=== PATIENT | female | born 2000 | race Caucasian/White ===

== ENCOUNTER 2019-09-27 16:46 | Emergency (ER) | payer OTHER, SELFPAY ==
[2019-09-27 16:46] VITALS: BP 135/71; PULSE 68; RESP 16; TEMP 36.8; O2SAT 98; BMI 29.3
--- NOTE | 2019-09-27 17:00 | US_ITS ---
STUDY: ABDOMINAL ULTRASOUND - RIGHT UPPER QUADRANT REASON FOR VISIT: Female, 18 years old abdominal pain, nausea TECHNIQUE: Ultrasound evaluation of the right upper quadrant was performed with real-time and static larsen-scale imaging. TECHNICAL QUALITY: Adequate. COMPARISON: None. FINDINGS: Liver: The liver measures 17.3 cm. There is normal echogenicity of the liver. The bile ducts are within normal limits. There is hepatic color flow. The direction of portal flow is hepatopetal. There is no demonstrated mass lesion. Gallbladder: Normal distended gallbladder. The gallbladder wall measures 3 mm. There is a negative sonographic Gan's sign. There is no pericholecystic fluid. There are no gallstones. Common Bile Duct (C.B.D.): The common bile duct measures 4 mm. Pancreas: Normal size of the head, body and tail of the pancreas. There is normal echogenicity of the pancreas. There is no demonstrated pancreatic mass or cyst. Right Kidney: Normal size of the right kidney. The right kidney measures 10.0 x 4.5 x 4.1 cm. Normal renal cortex. The right cortex measures 1.4 cm. There is no demonstrated renal mass or cyst. There is no right hydronephrosis. US/Gallbladder IMPRESSION: Normal right upper quadrant ultrasound examination. Electronically Signed: Marcus Baltazar MD at 17:37 EST , Service support ,
--- NOTE | 2019-09-27 17:01 | ED.DCSUM_ITS ---
History of Present Illness Chief Complaint: Abd Pain Informant: Patient Onset: Weeks Narrative: Intermittent right upper quadrant pain radiating to her right flank with past few weeks. Symptoms more persistent since yesterday and today. No nausea or vomiting. Symptoms worse with movement. Denies any injury. No worsening symptoms with food. No fevers. No urinary symptoms. Normal bowel movements. No previous similar symptoms in the past. History of ovarian cyst however no pain in the pelvic region. On oral contraceptives. Currently symptoms have subsided and is tolerable. No history of gastric ulcers or kidney injury. Prior similar symptoms: No Past Medical History - Allergies and Home Meds Allergies/Adverse Reactions: Allergies No Known Allergies Allergy (Verified 09/27/19 16:48) Primary Care Physician: Tono Arciniega DO [Primary Care Provider] - Smoking Status: Never smoker Review of Systems General: Denies: Chills, Fever, Sweats Eyes: Denies: Visual changes - bilaterally, Diplopia ENT: Denies: Rhinorrhea, Sore throat Cardiovascular: Denies: Chest pain, Palpitations Respiratory: Denies: Dyspnea, Cough, Dyspnea on exertion Gastrointestinal: Reports: Abdominal pain. Denies: Nausea, Vomiting, Diarrhea, Melena, Hematochezia Genitourinary: Denies: Dysuria, Hematuria, Frequency Musculoskeletal: Denies: Back pain, Extremity Pain Skin: Denies: Rash, Wounds Neurological: Denies: Headache, Weakness, Numbness Physical Exam Vital Signs/Narrative: Vital Signs Temp Pulse Resp BP Pulse Ox 09/27/19 16:46 98.2 F 68 16 135/71 H 98 Inital Vital Signs reviewed: Yes General: Well nourished, Well developed, No Acute Distress Head: Normocephalic, Atraumatic Eyes: Perrl, EOMI ENT: Moist mucous membranes, No rhinorrhea Neck: Supple, Nontender Cardiovascular: Regular rate, Regular rhythm, No murmurs Respiratory: No distress, CTA bilaterally, Chest nontender Abdomen: Soft, Nondistended, Normal bowel sounds, - - Mild tenderness right upp er quadrant without guarding or rebound. Negative McBurney's. No pelvic pain.. Negative for: Gan's sign Back: Nontender, Normal Inspection. Negative for: CVA tenderness Extremities: Nontender, No edema Skin: Normal color, No rash Neurological: Alert, Oriented x3, Cranial nerves II-XII grossly intact, Normal Strength, Normal Sensation Psychological: Normal affect, Normal Mood Diagnostic/Tx/Re-eval Clinical Impression(s) from Imaging Studies Gallbladder Ultrasound 09/27/19 17:00 IMPRESSION: Normal right upper quadrant ultrasound examination. Electronically Signed: Marcus Baltaazr MD at 17:37 EST , Service support , - Medical Decision Making Patient with nonsurgical abdomen, atypical right upper quadrant pain reproducible. Gallbladder ultrasound obtained with no acute process. Discussed monitoring symptoms continuing Tylenol or NSAIDs as needed. Follow-up with PCP. All questions were answered. ED Disposition - Plan for ED Patient: Disposition: Home or Assisted Living Diagnosis: RUQ abdominal pain Instructions: ABDOMINAL PAIN, Unknown Cause, (Female) Referrals: Tono Arciniega DO [Primary Care Provider] - 5-7 Days Additional Instructions: normal gallbladder ultrasound.
[2019-09-27 18:47] VITALS: BP 137/74; PULSE 65; RESP 17
== END 2019-09-27 18:48 | disposition home or self-care (01) ==
PROVIDERS: Emergency Provider Emergency Medicine; Family Provider Student in an Organized Health Care Education/Training Program; PCP Student in an Organized Health Care Education/Training Program
DX: R10.11 Right upper quadrant pain (principal)
CPT/HCPCS: 76705; 99282

== ENCOUNTER → 2023-05-01 | Outpatient (CLI) | payer BC, MEDICAID, SELFPAY ==
--- NOTE | 2023-05-01 14:03 | US_ITS ---
STUDY: FIRST TRIMESTER OBSTETRICAL ULTRASOUND REASON FOR EXAM: Female, 22 years old right pelvic pain LMP: March 01, 2024. TECHNIQUE: Transvaginal TECHNICAL QUALITY: Adequate. PRIOR ULTRASOUND: None. FINDINGS: There is visualization of a single gestational sac in a normal intrauterine position. The mean sac diameter (MSD) measures 3.07 cm, indicating an estimated gestational age (EGA) of 8 weeks, 2 days. The gestational sac shape is within normal limits. There is a visualized yolk sac. The yolk sac measures 3 mm. The placenta is non-visualized. There is visualization of a live embryo. The crown-rump length (CRL) measures 1.41 cm, indicating an estimated gestational age (EGA) of 7 weeks, 5 days. There is demonstrated cardiac activity with a heart rate of 159 bpm. The estimated gestation age (EGA) by LMP is 8 weeks, 5 days. The estimated date of delivery (MARK) by LMP is December 06, 2023. The estimated gestation age (EGA) by US is 8 weeks, 0 days. The estimated date of delivery (MARK) by US is December 11, 2023. The uterus measures 9 cm x 7.9 cm x 7.4 cm. There is no demonstrated uterine fibroid. The cervix is closed. The right ovary measures 3.3 cm x 2.9 cm x 2 cm. There is no right ovarian cyst. There is no visualized right adnexal mass or complex lesion. The left ovary measures 3 cm x 2.1 cm x 1.5 cm. There is no left ovarian cyst. There is no visualized left adnexal mass or complex lesion. There is no fluid in the cul de sac. US/Transvaginal w/Preg US IMPRESSION: Single live intrauterine gestation with mean gestational age of 8 weeks. Electronically Signed: Elver Li MD at 15:05 EDT ,
== END | disposition home or self-care (01) ==
PROVIDERS: PCP Student in an Organized Health Care Education/Training Program; Referring Provider Registered Nurse; Visit Provider Registered Nurse
DX: O26.899 Other specified pregnancy related conditions, unspecified trimester (principal); R10.2 Pelvic and perineal pain; Z3A.00 Weeks of gestation of pregnancy not specified
CPT/HCPCS: 36415; 76817; 84702; 86850; 86900; 86901

== ENCOUNTER → 2023-05-15 | Outpatient (CLI) | payer BC, MEDICAID, SELFPAY ==
[2023-05-18 20:07] LABS: Chlamydia By Nucleic Acid AMP Negative (Negative); Gonococcus By Nucleic Acid AMP Negative (Negative)
== END | disposition home or self-care (01) ==
PROVIDERS: PCP Student in an Organized Health Care Education/Training Program; Referring Provider Advanced Practice Midwife; Visit Provider Advanced Practice Midwife
DX: O09.90 Supervision of high risk pregnancy, unspecified, unspecified trimester (principal); Z3A.00 Weeks of gestation of pregnancy not specified
CPT/HCPCS: 87086; 87491; 87591

== ENCOUNTER → 2023-06-08 | Outpatient (CLI) | payer BC, MEDICAID, SELFPAY ==
[2023-06-08 15:33] LABS: Absolute Lymphocyte Count 2.04 X10^3/uL (0.83-4.51); Basophil# 0.02 X10^3/uL; Basophil% 0.2 % (0-1); Eosinophil# 0.07 X10^3/uL; Eosinophils% 0.7 % (0-5); Hematocrit 37.1 % (37-47); Hemoglobin 12.7 g/dL (12.0-15.0); Lymphocyte # 2.04 X10^3/ul (0.83-4.51); Lymphocyte % 20.6 % (19-41); Mean Corp Hgb Conc 34.2 g/dL (32-36); Mean Corpuscular Hgb 27.4 pg (27.0-32.0); Mean Platelet Vol. 8.7 fl (6.2-12.0); Monocyte# 0.74 X10^3/uL; Monocyte% 7.5 % (0-10); NRBC Flagged by Analyzer 0 % (0-5); Neutrophil # 7.01 X10^3/uL (2.7-7.7); Neutrophil % 70.6 % (47-70); Platelet Count 269 K/mm3 (150-450); RBC Distribution Width CV 15.7 % (11.6-14.6); RBC Distribution Width SD 45.2 fl (35.1-43.9); Red Blood Count 4.64 M/mm3 (4.2-5.4); White Blood Count 9.9 K/mm3 (4.4-11.0)
[2023-06-08 16:10] LABS: NATERA MAILED SPECIMEN
[2023-06-08 16:55] LABS: HIV - WCH Non-Reactive (Nonreactive); Hepatitis B Surface Antigen Non-Reactive (Nonreactive); Hepatitis C Antibody Non-Reactive (Nonreactive); Rubella IgG Reactive (Nonreactive); Syphilis Antibodies Non-reactive
== END | disposition home or self-care (01) ==
PROVIDERS: PCP Student in an Organized Health Care Education/Training Program; Referring Provider Advanced Practice Midwife; Visit Provider Advanced Practice Midwife
DX: Z34.82 Encounter for supervision of other normal pregnancy, second trimester (principal); Z3A.00 Weeks of gestation of pregnancy not specified
CPT/HCPCS: 36415; 85025; 86703; 86762; 86780; 86803; 86850; 86900; 86901; 87340

== ENCOUNTER → 2023-07-07 | Outpatient (CLI) | payer BC, MEDICAID, SELFPAY | END | disposition home or self-care (01) | PROVIDERS: PCP Student in an Organized Health Care Education/Training Program; Referring Provider Nurse Practitioner Women's Health; Visit Provider Nurse Practitioner Women's Health | DX: Z34.90 Encounter for supervision of normal pregnancy, unspecified, unspecified trimester (principal) | CPT/HCPCS: 36415 ==

== ENCOUNTER 2023-07-21 22:08 | Emergency (ER) | payer BC, MEDICAID, SELFPAY ==
[2023-07-21 22:09] VITALS: BP 126/68; PULSE 78; RESP 15; TEMP 36.3; O2SAT 100; BMI 27.4
--- NOTE | 2023-07-21 23:21 | EX.ED.DYSGE1 ---
HPI History of Present Illness Chief Complaint: Other, Pain/Inj Informant: patient and spouse/S.O. Narrative Narrative: Presents with intermittent left anterior lateral chest pain. Patient states that she has had an area of just sharp pain that last for about 1 second in the left anterior lateral rib cage. It is intermittent. It will happen several times an hour. Motion or twisting does sometimes bother it but not all the time. Breathing does not bother it. Eating does not bother it. No rash. She has never had chickenpox. She had the vaccines. She states she feels fine in between the episodes. She has never been short of breath. Not syncopal or presyncopal. No leg pain or swelling. No recent travel surgery immobilization personal or family history of DVT or PE. Not having the symptoms now. Does work as an [employer] and does a lot of lifting and bending. Patient is currently about 19 weeks . She is having no complaints related to this. No abdominal or pelvic pain. No urinary ojeda problems other than slight frequency which has been progressive. No hematuria dysuria. PFSH PFSH Home Medications ondansetron 4 mg disintegrating tablet 4 mg PO Q8H #30 tabs 05/15/23 [Rx Last Taken Unknown] sertraline 25 mg tablet (Zoloft) 25 mg PO DAILY #60 tabs 05/15/23 [Rx Last Taken Unknown] vitamin-ferrous fumarate 40 mg iron-folic acid 1 mg tablet 1 tab PO DAILY 07/21/23 [History Last Taken Unknown] Allergy/AdvReac Type Severity Reaction Status Date / Time No Known Allergies Allergy Verified 07/21/23 22:13 Family History Mother Depression Sister Depression Surgical History [place] teeth extracted Social History adopted: No household members: significant other housing: house number of children: 0 current occupational status: employed current occupation: [employer] pets and animals: Yes (not managing litter box) pets and animals: cat(s) and dog(s) history of recent travel: Yes out of state: Yes sexually active: Yes Smoking Status: Never smoker second hand exposure: No alcohol intake: never substance use type: does not use caffeine: No seatbelt use: always do you feel safe at home: Yes additional social history: BOYFRIEND LINDA ALACLA ROS ROS ED ROS Narrative A complete review of systems was performed and is negative except as documented in the history of present illness. Some specific details below. Constitutional: No recent fevers or chills. He overall feels quite well. EYE: No discharge, visual complaints, or pain. ENT: No difficulty swallowing. No swelling. No pain. No reflux symptoms. History of GERD CV: Palpitations. No lightheadedness. No syncope or near syncope. Respiratory: Is not coughing. She is not short of breath even when the pain occurs but it only last for split-second. No hemoptysis. Breathing or taking deep breaths does not exacerbate this. GI: No abdominal pain. No nausea vomiting diarrhea. No blood in stool. : No frequency dysuria or hematuria. Musculoskeletal: No recent trauma. See history of present illness Skin: No rash. Nondiaphoretic now or even with the symptoms. Neuro: No weakness or numbness. Endocrine: No polyuria or polydipsia. EXAM Physical Exam Narrative Exam Narrative: CONSTITUTIONAL: Patient is nontoxic in appearance. The patient looks comfortable. Work of breathing looks normal. HEENT: No notable trauma. Mucous membranes moist. No sinus tenderness. No indication of pain with swallowing. EYES: No conjunctival injection. No proptosis. NECK:No JVD. No stridor. CARDIOVASCULAR: Regular rate. Regular rhythm. No notable murmur. No JVD. Tones are not muffled. Peripheral pulses are normal and equal x4. RESPIRATORY: No respiratory distress. Breathing is unlabored. No wheezes. No rhonchi. No rales. No pain with a deep breath. Breaths do not bring on the pain. There is minimal chest wall tenderness in the area but not significant at all. I see no rashes or skin changes or vesicles. GASTROINTESTINAL: Not distended. Bowel sounds are normal. No tenderness. No guarding. No rebound. No palpable mass. No bruit is heard. GENITOURINARY: No tenderness over the bladder. No CVA tenderness. MUSCULOSKELETAL: Atraumatic. No peripheral edema. No cord. No tenderness along the deep venous system. No asymmetry. No distended veins. NEUROLOGICAL: Patient is alert and appropriate. No focal deficit noted. SKIN: No noted rashes. No diaphoresis. PSYCHIATRIC: Patient is calm. Mood is appropriate. Const Vital Signs: 07/21/23 22:09 07/21/23 23:07 Temperature 97.3 F L Temperature Source Temporal Pulse Rate 78 Respiratory Rate 15 Respiratory Effort Normal Respiratory Pattern Normal Blood Pressure 126/68 H Blood Pressure Mean 87 Pulse Ox 100 Oxygen Delivery Method Room Air MDM MDM MDM Narrative Medical decision making narrative: A long talk with the patient and her significant other. She has a normal heart rate, normal respiratory rate, normal O2 saturations, other than being , she would be PERC negative. Her symptoms are intermittent and only last for maybe 1 second. She has no known risk factor for PE other than being . I explained that I do not think her symptoms justify the risks of a CAT scan. We did discuss the risks and benefits of this study to her and her fetus. We are agreeing at this time that we will watch this. She now states that she has had this before but normally only last a few hours and this has been going on most of the day since somewhere in the afternoon. If the symptoms become constant, she is coughing, hemoptysis, shortness of breath, lightheadedness or other symptoms we may look further. She is comfortable with this plan. Discharge Plan Triage Chief Complaint: Other, Pain/Inj ED Provider: Froylan Perez Dx/Rx/DC Orders Clinical Impression: Intermittent left-sided chest pain, Second trimester Instructions: ED Chest Pain, Uncertain Cause Prescriptions: No Action ondansetron 4 mg tablet,disintegrating 4 mg PO Q8H Qty: 30 1RF sertraline [Zoloft] 25 mg tablet 25 mg PO DAILY Qty: 60 3RF Hold Instructions: not taking (w/o vit A)-Fe fum-FA 40 mg iron-1 mg tablet 1 tab PO DAILY Stand Alone Forms: ED Work / School Excuse Primary Care Provider: Tono Arciniega Referrals: Tono Arciniega, [Primary Care Provider] - 1-2 Days if not improving Disposition Disposition: Home, Self Care
[2023-07-21 23:41] VITALS: BP 120/60; PULSE 76; RESP 16; O2SAT 99
== END 2023-07-21 23:42 | disposition home or self-care (01) ==
PROVIDERS: Emergency Provider Emergency Medicine; PCP Student in an Organized Health Care Education/Training Program; Visit Provider Emergency Medicine
DX: O99.891 Other specified diseases and conditions complicating pregnancy (principal); Z3A.19 19 weeks gestation of pregnancy; R07.89 Other chest pain
CPT/HCPCS: 99282

== ENCOUNTER → 2023-09-07 | Outpatient (CLI) | payer BC, MEDICAID, SELFPAY ==
[2023-09-07 10:50] LABS: Absolute Lymphocyte Count 1.79 X10^3/uL (0.83-4.51); Absolute Neutrophil Count 7.2 X10^3/uL (2.0-7.7); Basophil# 0.03 X10^3/uL; Basophil% 0.3 % (0-1); Eosinophil# 0.11 X10^3/uL; Eosinophils% 1.1 % (0-5); Hematocrit 32.2 % (37-47); Lymphocyte # 1.79 X10^3/ul (0.83-4.51); Lymphocyte % 18.2 % (19-41); Mean Corp Hgb Conc 31.1 g/dL (32-36); Mean Corpuscular Hgb 26.5 pg (27.0-32.0); Mean Corpuscular Volume 85.2 fL (81-99); Mean Platelet Vol. 9.1 fl (6.2-12.0); Monocyte# 0.59 X10^3/uL; NRBC Flagged by Analyzer 0 % (0-5); Neutrophil # 7.19 X10^3/uL (2.7-7.7); Neutrophil % 73.4 % (47-70); Platelet Count 287 K/mm3 (150-450); RBC Distribution Width CV 13.5 % (11.6-14.6); RBC Distribution Width SD 41.2 fl (35.1-43.9); Red Blood Count 3.78 M/mm3 (4.2-5.4); White Blood Count 9.8 K/mm3 (4.4-11.0)
[2023-09-07 11:03] LABS: Glucose Challenge Gest 1H 50g 94 mg/dL (70-140)
[2023-09-07 11:35] LABS: HIV - WCH Non-Reactive (Nonreactive); Syphilis Antibodies Non-reactive
== END | disposition home or self-care (01) ==
LOC: LAB 10:23
PROVIDERS: PCP Student in an Organized Health Care Education/Training Program; Referring Provider Registered Nurse; Visit Provider Registered Nurse
DX: Z34.90 Encounter for supervision of normal pregnancy, unspecified, unspecified trimester (principal); Z3A.00 Weeks of gestation of pregnancy not specified
CPT/HCPCS: 36415; 82950; 85025; 86703; 86780

== ENCOUNTER → 2023-10-06 | Outpatient (CLI) | payer BC, MEDICAID, SELFPAY ==
[2023-10-06 11:29] LABS: Absolute Neutrophil Count 7.2 X10^3/uL (2.0-7.7); Basophil# 0.02 X10^3/uL; Basophil% 0.2 % (0-1); Eosinophil# 0.06 X10^3/uL; Eosinophils% 0.6 % (0-5); Hematocrit 30.8 % (37-47); Hemoglobin 9.7 g/dL (12.0-15.0); Lymphocyte % 18.5 % (19-41); Mean Corp Hgb Conc 31.5 g/dL (32-36); Mean Corpuscular Hgb 25.7 pg (27.0-32.0); Mean Corpuscular Volume 81.5 fL (81-99); Mean Platelet Vol. 8.9 fl (6.2-12.0); Monocyte# 0.58 X10^3/uL; NRBC Flagged by Analyzer 0 % (0-5); Neutrophil # 7.19 X10^3/uL (2.7-7.7); Neutrophil % 73.9 % (47-70); Platelet Count 247 K/mm3 (150-450); RBC Distribution Width CV 13.8 % (11.6-14.6); RBC Distribution Width SD 40.2 fl (35.1-43.9); Red Blood Count 3.78 M/mm3 (4.2-5.4); White Blood Count 9.7 K/mm3 (4.4-11.0)
== END | disposition home or self-care (01) ==
LOC: LAB 10:45
PROVIDERS: PCP Student in an Organized Health Care Education/Training Program; Referring Provider Advanced Practice Midwife; Visit Provider Advanced Practice Midwife
DX: O99.019 Anemia complicating pregnancy, unspecified trimester (principal); Z3A.00 Weeks of gestation of pregnancy not specified
CPT/HCPCS: 36415; 85025

== ENCOUNTER → 2023-10-27 | Outpatient (CLI) | payer BC, MEDICAID, SELFPAY ==
[2023-10-27 13:02] LABS: Absolute Lymphocyte Count 1.84 X10^3/uL (0.83-4.51); Basophil# 0.04 X10^3/uL; Basophil% 0.4 % (0-1); Eosinophil# 0.07 X10^3/uL; Eosinophils% 0.6 % (0-5); Hematocrit 32.3 % (37-47); Hemoglobin 9.9 g/dL (12.0-15.0); Lymphocyte # 1.84 X10^3/ul (0.83-4.51); Lymphocyte % 17.1 % (19-41); Mean Corp Hgb Conc 30.7 g/dL (32-36); Mean Corpuscular Hgb 25.1 pg (27.0-32.0); Mean Platelet Vol. 8.9 fl (6.2-12.0); Monocyte# 0.68 X10^3/uL; Monocyte% 6.3 % (0-10); NRBC Flagged by Analyzer 0 % (0-5); Neutrophil # 8.04 X10^3/uL (2.7-7.7); Neutrophil % 74.6 % (47-70); Platelet Count 247 K/mm3 (150-450); RBC Distribution Width CV 15.9 % (11.6-14.6); RBC Distribution Width SD 44.6 fl (35.1-43.9); Red Blood Count 3.94 M/mm3 (4.2-5.4); White Blood Count 10.8 K/mm3 (4.4-11.0)
[2023-10-27 13:37] LABS: Ferritin 7 ng/mL (8-252); Iron Binding Capacity,Total 498 ug/dL (250-450)
== END | disposition home or self-care (01) ==
PROVIDERS: PCP Student in an Organized Health Care Education/Training Program; Referring Provider Advanced Practice Midwife; Visit Provider Advanced Practice Midwife
DX: O99.019 Anemia complicating pregnancy, unspecified trimester (principal); Z3A.00 Weeks of gestation of pregnancy not specified
CPT/HCPCS: 36415; 82728; 83550; 85025

== ENCOUNTER → 2023-11-13 | Outpatient (CLI) | payer BC, MEDICAID, SELFPAY ==
--- OUTSIDE RECORDS SUMMARY | 2023-11-13 15:22 | XMS RPT_ITS | CCD ---
Author Name Unknown Address [address] [place] [address] Organization [facility] Care Team Providers Care Photoresist Contact Printer Name Role Phone EDGARD CALL Unavailable Unavailable Montse Fernandez Unavailable Unavailable EDGARD CALL Unavailable Unavailable MONTSE FERNANDEZ Unavailable Unavailable Tono Caruso DO Primary Care Provider Tono Caruso Unavailable Panchito Whiteside Unavailable Tono Caruso DO Primary Care Provider [phone] Tono Caruso DO Primary Care Provider [phone] Tono Caruso DO Primary Care Provider TONO CARUSO Primary Care Unavailable JANE ULLOA Attending Unavailable TONO CARUSO Primary Care Unavailable JANE ULLOA Attending Unavailable TONO CARUSO Primary Care Unavailable TONO CARUSO Primary Care Unavailable TONO CARUSO Primary Care Unavailable TONO CARUSO Primary Care Unavailable JANE ULLOA Attending Unavailable TONO CARUSO Primary Care Unavailable FOSTER DICKERSON Attending Unavailab FOSTER Mtz Referring Unavailab MONTSE Gutiérrez Primary Care Unavailable FOSTER DICKERSON Referring Unavailab SHELLY Castillo Attending Unavailable MONTSE VOGEL Primary Care Unavailable MONTSE VOGEL Primary Care Unavailable AARON GOLDSTEIN Attending Unavailable ODALYS JAY Referring Unavailabl e MONTSE VOGEL Primary Care Unavailable AARON GOLDSTEIN Attending Unavailable ODALYS JAY Referring Unavailabl e Medications Current Medications Medication Drug Class(es) Dates Sig (Normalized) Sig (Original) [id number] 200 actuat albuterol 0.09 mg/actuat metered dose inhaler (1 source) beta2-Adrenergic Agonist Start: 05-01-2022 End: 05-30-2022 take 2 puff(s) by inhalation every six hours ProAir HFA 90 mcg/inh inhalation aerosol ; 2 puff(s) inhaled every 6 hours Quantity: 1 Refills: 0 Ordered: 01-May-2022 Panchito Whiteside Start: 01-May-2022 End: 30-May-2022 Generic Substitution Allowed Comments: For inhalation only.It is very important that you take or use this exactly as directed. Do not skip doses or discontinue unless directed by your doctor.Obtain medical advice before taking any non-prescription drugs as some may affect the action of this medication.Shake well before use. Completed/Discontinued Medications Medication Drug Class(es) Dates Sig (Normalized) Sig (Original) azelastine hydrochloride 0.137 mg/actuat metered dose nasal spray (1 source) Histamine-1 Receptor Antagonist Start: 01-22-2020 End: 02-20-2020 azelastine 137 mcg/inh (0.1%) nasal spray ; 2 spray(s) intranasally 2 times a day Quantity: 1 Refills: 0 Ordered: 22-Jan-2020 Kurt Andrade Start: 22-Jan-2020 End: 20-Feb-2020 Status: Other Generic Substitution Allowed Comments: Check with your doctor before becoming .Do not drink alcoholic beverages when taking this medication.For the nose.May cause drowsiness. Alcohol may intensify this effect. Use care when operating dangerous machinery.Obtain medical advice before taking any non-prescription drugs as some may affect the action of this medication.This drug may impair the ability to drive or operate machinery. Use care until you become familiar with its effects. Problems Active Problems Problem Classification Problem Date Documented Date Episodic/Chronic Acute bronchitis (2 sources) Acute bronchitis; Translations: [Acute bronchitis] 05-01-2022 Episodic Adjustment disorders (18 sources) Adjustment disorder with depressed mood; Translations: [Adjustment disorder with depressed mood] Onset: 03-19-2016 03-19-2016 Chronic Anxiety disorders (14 sources) Chronic post-traumatic stress disorder; Translations: [Post-traumatic stress disorder, chronic] Onset: 08-14-2022 08-14-2022 Chronic Cardiac and circulatory congenital anomalies (19 sources) Atrial septal defect; Translations: [Atrial septal defect] Onset: 07-03-2017 07-03-2017 Chronic Developmental disorders (17 sources) Developmental academic disorder; Translations: [Other developmental disorders of scholastic skills] Onset: 01-28-2008 11-29-2008 Chronic Immunizations and screening for infectious disease (3 sources) Patient encounter status; Translations: [Encounter for screening for infections with a predominantly sexual mode of transmission] Episodic Mood disorders (17 sources) Recurrent major depressive episodes, moderate ; Translations: [Major depressive disorder, recurrent, moderate] Onset: 08-14-2022 Chronic Nutritional deficiencies (1 source) Vitamin D deficiency; Translations: [Vitamin D deficiency, unspecified] Chronic Other and delivery including normal (1 source) test positive; Translations: [Encounter for test, result positive] Episodic Other screening for suspected conditions (not mental disorders or infectious disease) (1 source) Cancer cervix screening status; Translations: [Encounter for screening for malignant neoplasm of cervix] Episodic Other upper respiratory infections (3 sources) Acute pansinusitis; Translations: [Other acute sinusitis] 05-01-2022 Episodic Otitis media and related conditions (1 source) Dysfunction of bilateral eustachian tubes; Translations: [Unspecified Eustachian tube disorder, bilateral] 10-13-2023 Episodic Personality disorders (14 sources) Borderline personality disorder; Translations: [Borderline personality disorder] Onset: 08-14-2022 08-14-2022 Chronic Residual codes; unclassified (1 source) FH: Thyroid disorder; Translations: [Family history of other endocrine, nutritional and metabolic diseases] Episodic Unclassified (1 source) Unknown / UNK(Unknown) Onset: 08-26-2017 Unclassified (2 sources) COLD SX 05-01-2022 Past or Other Problems Problem Classification Problem Date Documented Da te Episodic/Chronic Nutritional deficiencies (18 sources) Iron deficiency; Translations: [Iron deficiency] Onset: 04-13-2014 04-13-2014 Episodic Residual codes; unclassified (17 sources) FH: Congenital heart disease; Translations: [Family history of other congenital malformations, deformations and chromosomal abnormalities] Onset: 06-17-2017 06-17-2017 Episodic Unclassified (1 source) Family history of other congenital malformations, deformations and chromosomal abnormalities; Translations: [Family history of other congenital malformations, deformations and chromosomal abnormalities] Onset: 08-26-2017 Episodic Results Test Name Value Interpretation Reference Range Facil ity Vital Signs Date Time Vital Sign Value Performing Clinician Facility 10-13-2023 12:22-0500 Body temperature 97.81 [degF] Javier العلي ADMINISTRATIVE PROGRAM SPECIALIST.MANUFACTURING DIRECTOR Work Phone: [facility] 10-13-2023 12:22-0500 Body weight 81.65 kg Javier العلي ADMINISTRATIVE PROGRAM SPECIALIST.MANUFACTURING DIRECTOR Work Phone: [facility] 10-13-2023 12:22-0500 Diastolic blood pressure 86 mm[Hg] Javier العلي ADMINISTRATIVE PROGRAM SPECIALIST.MANUFACTURING DIRECTOR Work Phone: [facility] 10-13-2023 12:22-0500 Heart rate 86 /min Javier العلي ADMINISTRATIVE PROGRAM SPECIALIST.MANUFACTURING DIRECTOR Work Phone: [facility] 10-13-2023 12:22-0500 Respiratory rate 18 /min Javier العلي ADMINISTRATIVE PROGRAM SPECIALIST.MANUFACTURING DIRECTOR Work Phone: [facility] 10-13-2023 12:22-0500 SaO2% (BldA) [Mass fraction] 99 % Javier العلي ADMINISTRATIVE PROGRAM SPECIALIST.MANUFACTURING DIRECTOR Work Phone: [facility] 10-13-2023 12:22-0500 Systolic blood pressure 138 mm[Hg] Javier العلي ADMINISTRATIVE PROGRAM SPECIALIST.MANUFACTURING DIRECTOR Work Phone: [facility] 06-11-2023 13:43-0400 Body temperature 98.29 [degF] Krislyn Aberegg PA Work Phone: [facility] 06-11-2023 13:43-0400 Body weight 72.58 kg Krislyn Aberegg PA Work Phone: [facility] 06-11-2023 13:43-0400 Diastolic blood pressure 80 mm[Hg] Krislyn Aberegg PA Work Phone: [facility] 08-10-2023 13:43-0400 Heart rate 70 /min Krislyn Aberegg PA Work Phone: [facility] 06-11-2023 13:43-0400 Respiratory rate 18 /min Krislyn Aberegg PA Work Phone: [facility] 06-11-2023 13:43-0400 SaO2% (BldA) [Mass fraction] 100 % Krislyn Aberegg PA Work Phone: [facility] 06-11-2023 13:43-0400 Systolic blood pressure 116 mm[Hg] Krislyn Aberegg PA Work Phone: [facility] 08-04-2022 08:21-0400 Body temperature 97.39 [degF] [facility] ADMINISTRATIVE PROGRAM SPECIALIST.MANUFACTURING DIRECTOR Work Phone: [facility] 08-04-2022 08:21-0400 Body weight 80.29 kg [facility] ADMINISTRATIVE PROGRAM SPECIALIST.MANUFACTURING DIRECTOR Work Phone: [facility] 08-04-2022 08:21-0400 Diastolic blood pressure 68 mm[Hg] Montse Pendlebury ADMINISTRATIVE PROGRAM SPECIALIST.MANUFACTURING DIRECTOR Work Phone: [facility] 08-04-2022 08:21-0400 Heart rate 80 /min Montse Pendlekoffi ADMINISTRATIVE PROGRAM SPECIALIST.MANUFACTURING DIRECTOR Work Phone: [facility] 08-04-2022 08:21-0400 Respiratory rate 16 /min Montse Pendlebury ADMINISTRATIVE PROGRAM SPECIALIST.MANUFACTURING DIRECTOR Work Phone: [facility] 08-04-2022 08:21-0400 SaO2% (BldA) [Mass fraction] 98 % Montse Pendlekoffi ADMINISTRATIVE PROGRAM SPECIALIST.MANUFACTURING DIRECTOR Work Phone: [facility] 08-04-2022 08:21-0400 Systolic blood pressure 118 mm[Hg] Montse Pendlebury ADMINISTRATIVE PROGRAM SPECIALIST.MANUFACTURING DIRECTOR Work Phone: [facility] 05-01-2022 13:58-0400 Body height 165.1 cm Tono Caruso Other Phone: [facility] 05-01-2022 13:58-0400 Body temperature 97.34 [degF] Tono Caruso Other Phone: [facility] 05-01-2022 13:58-0400 Diastolic blood pressure 74 mm[Hg] Tono Caruso Other Phone: [facility] 05-01-2022 13:58-0400 Heart rate 98 /min Tono Caruso Other Phone: [facility] 05-01-2022 13:58-0400 Respiratory rate 16 /min Tono Caruso Other Phone: [facility] 05-01-2022 13:58-0400 SaO2% (BldA) [Mass fraction] 100 % Tono Caruso Other Phone: [facility] 05-01-2022 13:58-0400 Systolic blood pressure 131 mm[Hg] Tono Caruso Other Phone: [facility] 04-30-2022 15:30-0400 Body weight 82.1 kg Krys Nik ADMINISTRATIVE PROGRAM SPECIALIST.MANUFACTURING DIRECTOR Work Phone: [facility] 04-30-2022 15:30-0400 Diastolic blood pressure 72 mm[Hg] Krys Nik ADMINISTRATIVE PROGRAM SPECIALIST.MANUFACTURING DIRECTOR Work Phone: [facility] 04-30-2022 15:30-0400 Heart rate 76 /min Krys Nik ADMINISTRATIVE PROGRAM SPECIALIST.MANUFACTURING DIRECTOR Work Phone: [facility] 04-30-2022 15:30-0400 Respiratory rate 16 /min Krys Nik ADMINISTRATIVE PROGRAM SPECIALIST.MANUFACTURING DIRECTOR Work Phone: [facility] 04-30-2022 15:30-0400 SaO2% (BldA) [Mass fraction] 97 % Krys Nik ADMINISTRATIVE PROGRAM SPECIALIST.MANUFACTURING DIRECTOR Work Phone: [facility] 04-30-2022 15:30-0400 Systolic blood pressure 104 mm[Hg] Krys Nik ADMINISTRATIVE PROGRAM SPECIALIST.MANUFACTURING DIRECTOR Work Phone: [facility] 04-30-2022 14:45-0400 Body height 163.8 cm Marilee Farzana ADMINISTRATIVE PROGRAM SPECIALIST.MANUFACTURING DIRECTOR Work Phone: [facility] 04-30-2022 14:45-0400 Body weight 81.65 kg Marilee Toccoa ADMINISTRATIVE PROGRAM SPECIALIST.MANUFACTURING DIRECTOR Work Phone: [facility] 04-30-2022 14:45-0400 Diastolic blood pressure 68 mm[Hg] Marilee Farzana ADMINISTRATIVE PROGRAM SPECIALIST.MANUFACTURING DIRECTOR Work Phone: [facility] 04-30-2022 14:45-0400 Systolic blood pressure 112 mm[Hg] Marilee Farzana ADMINISTRATIVE PROGRAM SPECIALIST.MANUFACTURING DIRECTOR Work Phone: [facility] Encounters Encounter Date Encounter Type Care Provider Facility Start: 10-20-2023 End: 10-20-[address] [facility] Start: 10-13-2023 End: 10-13-2023 ambulatory TONO CARUSO Facility:[facility] Start: 10-13-2023 End: 10-13-2023 Patient encounter procedure Javier العلي ADMINISTRATIVE PROGRAM SPECIALIST.MANUFACTURING DIRECTOR Work Phone: [facility] Procedures Date Procedure Procedure Detail Performing Clinician Start: 02-23-2023 Follow-up visit Follow Up JANE ULLOA Start: 08-04-2022 STREP A MOLECULAR (POC) Montse Cat ADMINISTRATIVE PROGRAM SPECIALIST.MANUFACTURING DIRECTOR Work Phone: Start: 06-19-2022 Adult depression screening assessment Krys Zaragoza ADMINISTRATIVE PROGRAM SPECIALIST.MANUFACTURING DIRECTOR Work Phone: Start: 04-30-2022 Adult depression screening assessment Marileetemitope DoeToccoa ADMINISTRATIVE PROGRAM SPECIALIST.MANUFACTURING DIRECTOR Work Phone: Start: 12-06-2018 Adult depression screening assessment Marileetemitope DoeFarzana ADMINISTRATIVE PROGRAM SPECIALIST.MANUFACTURING DIRECTOR Work Phone: Plan of Treatment Date Care Activity Detail Author Start: 04-30-2025 PAP TESTING PAP TESTING [facility] Start: 04-30-2025 Screening for malignant neoplasm of cervix Pap Testing [facility] Start: 12-28-2023 PAP TESTING PAP TESTING [facility] Start: 07-03-2023 Covid-19 Vaccine ( season) Covid-19 Vaccine ( season) [facility] Start: 07-03-2023 Influenza vaccination [facility] Start: 06-19-2023 Adult depression screening assessment DEPRESSION SCREENING [facility] Start: 04-30-2023 Adult depression screening assessment DEPRESSION SCREENING [facility] Start: 04-30-2023 CHLAMYDIA SCREENING (-24) CHLAMYDIA SCREENING (24) [facility] Start: 04-30-2023 GC (GONORRHEA) SCREENING (1824) GC (GONORRHEA) SCREENING (18-24) [facility] Start: 07-03-2022 Influenza vaccination [facility] Start: 06-19-2022 End: 08-19-2022 Choriogonadotropin.beta subunit [Units/volume] in Serum or Plasma HCG QUANTITATIVE Lab Routine Positive test Expected: 06/19/2022, Expires: 08/19/2022 [facility] Work Phone: Immunizations Immunization Date Immunization Notes Care Provider Angella gallo 12-01-2018 influenza virus vacc ine, unspecified formulation Javier العلي ADMINISTRATIVE PROGRAM SPECIALIST.MANUFACTURING DIRECTOR Work Phone: [facility] 12-05-2014 meningococcal polysaccharide (groups A, C, Y and W-135) diphtheria toxoid conjugate vaccine (MCV4P) Marilee Farzana ADMINISTRATIVE PROGRAM SPECIALIST.MANUFACTURING DIRECTOR Work Phone: [facility] Work Phone: 01-31-2013 varicella virus vaccine Jameson e Farzana ADMINISTRATIVE PROGRAM SPECIALIST.MANUFACTURING DIRECTOR Work Phone: [facility] Work Phone: 08-29-2011 human papilloma viru s vaccine, quadrivalent Marilee Farzana ADMINISTRATIVE PROGRAM SPECIALIST.MANUFACTURING DIRECTOR Work Phone: [facility] Work Phone: 04-24-2011 human papilloma viru s vaccine, quadrivalent Marilee Farzana ADMINISTRATIVE PROGRAM SPECIALIST.MANUFACTURING DIRECTOR Work Phone: [facility] Work Phone: 12-30-2010 human papilloma viru s vaccine, quadrivalent Marilee Toccoa ADMINISTRATIVE PROGRAM SPECIALIST.MANUFACTURING DIRECTOR Work Phone: [facility] 12-30-2010 Meningococcal, MCV4, unspecified conjugate formulation(groups A, C, Y and W-135) Marilee Toccoa ADMINISTRATIVE PROGRAM SPECIALIST.MANUFACTURING DIRECTOR Work Phone: [facility] 12-30-2010 tetanus toxoid, redu jaida diphtheria toxoid, and acellular pertussis vaccine, adsorbed Marilee Farzana ADMINISTRATIVE PROGRAM SPECIALIST.MANUFACTURING DIRECTOR Work Phone: [facility] 12-30-2010 varicella virus vaccine Jameson e Toccoa ADMINISTRATIVE PROGRAM SPECIALIST.MANUFACTURING DIRECTOR Work Phone: [facility] 06-24-2004 diphtheria, tetanus toxoids and acellular pertussis vaccine Marilee Farzana ADMINISTRATIVE PROGRAM SPECIALIST.[facility] Work Phone: [facility] Work Phone: 12-10-2001 diphtheria, tetanus toxoids and acellular pertussis vaccine Marilee Toccoa ADMINISTRATIVE PROGRAM SPECIALIST.MANUFACTURING DIRECTOR Work Phone: [facility] Work Phone: 06-24-2001 measles, mumps and rubella virus vaccine Marilee Toccoa ADMINISTRATIVE PROGRAM SPECIALIST.MANUFACTURING DIRECTOR Work Phone: [facility] Work Phone: 06-24-2001 poliovirus vaccine, inactivated Marilee Farzana ADMINISTRATIVE PROGRAM SPECIALIST.MANUFACTURING DIRECTOR Work Phone: [facility] Work Phone: 12-25-1999 measles, mumps and rubella virus vaccine Marilee Farzana ADMINISTRATIVE PROGRAM SPECIALIST.MANUFACTURING DIRECTOR Work Phone: [facility] Work Phone: 12-25-1999 poliovirus vaccine, inactivated Marilee Toccoa ADMINISTRATIVE PROGRAM SPECIALIST.MANUFACTURING DIRECTOR Work Phone: [facility] Work Phone: 08-21-1999 hepatitis B vaccine, pediatric or pediatric/adolescent dosage Marilee Farzana ADMINISTRATIVE PROGRAM SPECIALIST.MANUFACTURING DIRECTOR Work Phone: [facility] Work Phone: 06-05-1999 diphtheria, tetanus toxoids and acellular pertussis vaccine Marilee Toccoa ADMINISTRATIVE PROGRAM SPECIALIST.MANUFACTURING DIRECTOR Work Phone: [facility] Work Phone: 06-05-1999 haemophilus influenz ae type b vaccine, conjugate unspecified formulation Marilee Farzana ADMINISTRATIVE PROGRAM SPECIALIST.[facility] Work Phone: [facility] Work Phone: 04-18-1999 diphtheria, tetanus toxoids and acellular pertussis vaccine Marilee Toccoa ADMINISTRATIVE PROGRAM SPECIALIST.[facility] Work Phone: [facility] Work Phone: 04-18-1999 haemophilus influenz ae type b vaccine, conjugate unspecified formulation Marilee Toccoa ADMINISTRATIVE PROGRAM SPECIALIST.[facility] Work Phone: [facility] Work Phone: 04-18-1999 poliovirus vaccine, inactivated Marilee Toccoa ADMINISTRATIVE PROGRAM SPECIALIST.[facility] Work Phone: [facility] Work Phone: 04-18-1999 rotavirus, live, pentavalent vaccine Marilee Farzana ADMINISTRATIVE PROGRAM SPECIALIST.[facility] Work Phone: [facility] Work Phone: 02-07-1999 diphtheria, tetanus toxoids and acellular pertussis vaccine Marilee Toccoa ADMINISTRATIVE PROGRAM SPECIALIST.[facility] Work Phone: [facility] Work Phone: 02-07-1999 haemophilus influenz ae type b vaccine, conjugate unspecified formulation Marilee Toccoa ADMINISTRATIVE PROGRAM SPECIALIST.[facility] Work Phone: [facility] Work Phone: 02-07-1999 poliovirus vaccine, inactivated Marilee Toccoa ADMINISTRATIVE PROGRAM SPECIALIST.[facility] Work Phone: [facility] Work Phone: 02-07-1999 rotavirus, live, pentavalent vaccine Marilee Toccoa ADMINISTRATIVE PROGRAM SPECIALIST.[facility] Work Phone: [facility] Work Phone: 1998 hepatitis B vaccine, pediatric or pediatric/adolescent dosage Marilee Toccoa ADMINISTRATIVE PROGRAM SPECIALIST.[facility] Work Phone: [facility] Work Phone: 1998 hepatitis B vaccine, pediatric or pediatric/adolescent dosage Marilee Yanes APRN.CNP Work Phone: [facility] Work Phone: Payers Date Payer Category Payer Medicaid [employer] [id number] 2023-Present [phone] [address] [place] [address] Medicaid [id number] 2023 Medicaid [id number] 2022 Unknown 2022 Unknown [id number] 2022 Private Health Insurance [facility] [employer] PPO [id number] 2022-Present [phone] [address] [address] [place] [address] PPO [id number] 2022 Private Health Insurance [facility] [employer] PPO [id number] 2022-Present [phone] [address] [address] [place] [address] PPO [id number] 2019 Unknown MMO MMO [employer] [id number] 2019-Present [phone] [address] [place] [address] PPO [id number] 1998 Unknown [id number] 1971 Unknown [id number] 1971 Unknown [id number] 1971 Unknown [id number] Unknown [id number] Social History Date Type Detail Facility Start: 08-26-2017 End: 06-20-2022 Tobacco smoking status NHIS Never smoked tobacco [facility] Start: 12-24-2021 End: 10-13-2023 Alcohol intake Current drinker of alcohol (finding) [facility] Start: 08-26-2017 History SDOH Alcohol Comment social [facility] Start: 12-28-2020 History SDOH Social Connections Phone 5 [facility] Start: 12-28-2020 History SDOH Social Connections Latter-Day 1 [facility] Start: 12-28-2020 History SDOH Social Connections Membership 2 [facility] Start: 12-28-2020 History SDOH Social Connections Living 7 [facility] Start: 12-28-2020 History SDOH Physical Activity MPS 6 [facility] Start: 12-28-2020 Education 13 [facility] Start: 2000 Sex Assigned At Not on file [facility] Start: 04-19-2022 End: 08-04-2022 Exposure to SARS-CoV-2 (event) Not sure [facility] Work Phone: Tobacco smoking consumption unknown [facility] Start: 08-26-2017 End: 06-20-2022 Tobacco use and exposure Smokeless tobacco non-user [facility] Start: 12-28-2020 End: 02-23-2023 History of Social function [facility] Work Phone: Start: 12-28-2020 End: 02-23-2023 Social connection and isolation panel [facility] Work Phone: Do you belong to any clubs or organizations such as adventism groups, unions, fraternal or athletic groups, or school groups? No [facility] Work Phone: Are you now , , , , never or living with a partner? Never [facility] Work Phone: Adult Depression Screening Assessment 3 [facility] Do you feel stress - tense, restless, nervous, or anxious, or unable to sleep at night because your mind is troubled all the time - these days [OSQ] Only a little [facility] Work Phone: Clinical Notes 07-10-2015 to 10-13-2023 Javier العلي APRN.MANUFACTURING DIRECTOR - 10/13/2023 1:58 PM Chrissie Rocha PA - 06/11/2023 1:53 PM EDTPatient InstructionsPatient Alison Ulloa APRN.MANUFACTURING DIRECTOR - 02/23/2023 4:10 PM EDT Note Date & Type Note Facility 10-13-2023 Note HNO ID: [id number] Author: Javier العلي APRN.MANUFACTURING DIRECTOR Service: ? Author Type: Nurse Practitioner Type: Progress Notes Filed: 10/13/2023 2:08 PM Note Text: Subjective HPI HPI Jez Barrera is a 22 year old female who presents today for CC of bilat ear pain. This started intermittent for 2 weeks, was treated with amox for OM. Chronic nasal allergies. 32 weeks . .Patient presents with: Ear Pain: bilateral ears x 2 weeks PAST MEDICAL HISTORY Diagnosis Date Chest pain Dyslexia Iron deficiency anemia PAST SURGICAL HISTORY Procedure Laterality Date 2D ECHO (EXEP) 06/29/2017 EF=55%, Mild [place] Dys, dilated RV and LA and small atrial septal defect. NONE ALLERGIES Patient has no known allergies. MEDICATIONS vit no.124/iron/folic ( VITAMIN ORAL) Take by mouth. sertraline (ZOLOFT) 25 mg tablet Take 1 tablet by mouth every afternoon. (Patient not taking: Reported on 09/01/2023) lamoTRIgine (LAMICTAL) 100 mg tablet Take 1 tablet by mouth once daily. (Patient not taking: Reported on 09/01/2023) FLUoxetine (PROZAC) 20 mg capsule Take 1 capsule by mouth once daily. (Patient not taking: Reported on 09/01/2023) Cholecalciferol, Vitamin D3, 50 mcg (2,000 unit) cap Take 1 capsule by mouth once daily. (Patient not taking: Reported on 06/11/2023) FAMILY HISTORY Problem Relation Age of Onset Alcohol/Drug Mother other (acid reflux) Mother Alcohol/Drug Father Anxiety disorder Sister Depression Sister Anxiety disorder Sister Depression Sister Asthma Sister Heart Paternal Uncle Alzheimer's Disease Maternal Grandmother other (cabg) Maternal Grandfather other (heart defects) Other Social History Tobacco Use Smoking status: Never Smokeless tobacco: Never Vaping Use Vaping Use: Never used Substance Use Topics Alcohol use: Yes Comment: social Drug use: Yes Types: Marijuana Comment: marijuana occasionally Review of Systems Constitutional: Negative for fever. HENT: Positive for congestion and ear pain. Negative for ear discharge, nosebleeds, sinus pain and sore throat. Respiratory: Negative for cough, shortness of breath and wheezing. Musculoskeletal: Negative for neck pain. Skin: Negative for itching and rash. Objective Blood pressure 138/86, pulse 86, temperature 36.6 ?C (97.8 ?F), resp. rate 18, weight 81.6 kg (180 lb), last menstrual period 04/05/2022, SpO2 99%. Physical Exam Constitutional: General: She is not in acute distress. Appearance: She is not toxic-appearing or diaphoretic. HENT: Head: Normocephalic and atraumatic. Right Ear: Hearing, tympanic membrane, ear canal and external ear normal. Left Ear: Hearing, tympanic membrane, ear canal and external ear normal. Pulmonary: Effort: Pulmonary effort is normal. No accessory muscle usage or respiratory distress. Neurological: Mental Status: She is alert and oriented to person, place, and time. ASSESSMENT/PLAN: 1. ETD (Eustachian tube dysfunction), bilateral - ICD9: 381.81, ICD10: H69.93 Try fluticasone and cetirizine Notify photolith operator of medication F/u for continued/worsening s/s. - FLUTICASONE PROPIONATE 50 MCG/ACTUATION NASAL SPRAY,SUSPENSION - CETIRIZINE 10 MG TABLET Javier العلي APRN.[facility] 10-13-2023 History of Presen t illness Narrative Subjective HPI HPI Jez Barrera is a 22 year old female who presents today for CC of bilat ear pain. This started intermittent for 2 weeks, was treated with amox for OM. Chronic nasal allergies. 32 weeks . .Patient presents with: Ear Pain: bilateral ears x 2 weeks PAST MEDICAL HISTORY Diagnosis Date Chest pain Dyslexia Iron deficiency anemia PAST SURGICAL HISTORY Procedure Laterality Date 2D ECHO (EXEP) 06/29/2017 EF=55%, Mild [place] Dys, dilated RV and LA and small atrial septal defect. NONE ALLERGIES Patient has no known allergies. MEDICATIONS vit no.124/iron/folic ( VITAMIN ORAL) Take by mouth. sertraline (ZOLOFT) 25 mg tablet Take 1 tablet by mouth every afternoon. (Patient not taking: Reported on 09/01/2023) lamoTRIgine (LAMICTAL) 100 mg tablet Take 1 tablet by mouth once daily. (Patient not taking: Reported on 09/01/2023) FLUoxetine (PROZAC) 20 mg capsule Take 1 capsule by mouth once daily. (Patient not taking: Reported on 09/01/2023) Cholecalciferol, Vitamin D3, 50 mcg (2,000 unit) cap Take 1 capsule by mouth once daily. (Patient not taking: Reported on 06/11/2023) FAMILY HISTORY Problem Relation Age of Onset Alcohol/Drug Mother other (acid reflux) Mother Alcohol/Drug Father Anxiety disorder Sister Depression Sister Anxiety disorder Sister Depression Sister Asthma Sister Heart Paternal Uncle Alzheimer's Disease Maternal Grandmother other (cabg) Maternal Grandfather other (heart defects) Other Social History Tobacco Use Smoking status: Never Smokeless tobacco: Never Vaping Use Vaping Use: Never used Substance Use Topics Alcohol use: Yes Comment: social Drug use: Yes Types: Marijuana Comment: marijuana occasionally Review of Systems Constitutional: Negative for fever. HENT: Positive for congestion and ear pain. Negative for ear discharge, nosebleeds, sinus pain and sore throat. Respiratory: Negative for cough, shortness of breath and wheezing. Musculoskeletal: Negative for neck pain. Skin: Negative for itching and rash. Objective Blood pressure 138/86, pulse 86, temperature 36.6 C (97.8 F), resp. rate 18, weight 81.6 kg (180 lb), last menstrual period 04/05/2022, SpO2 99%. Physical Exam Constitutional: General: She is not in acute distress. Appearance: She is not toxic-appearing or diaphoretic. HENT: Head: Normocephalic and atraumatic. Right Ear: Hearing, tympanic membrane, ear canal and external ear normal. Left Ear: Hearing, tympanic membrane, ear canal and external ear normal. Pulmonary: Effort: Pulmonary effort is normal. No accessory muscle usage or respiratory distress. Neurological: Mental Status: She is alert and oriented to person, place, and time. ASSESSMENT/PLAN: 1. ETD (Eustachian tube dysfunction), bilateral - ICD9: 381.81, ICD10: H69.93 Try fluticasone and cetirizine Notify photolith operator of medication F/u for continued/worsening s/s. - FLUTICASONE PROPIONATE 50 MCG/ACTUATION NASAL SPRAY,SUSPENSION - CETIRIZINE 10 MG TABLET Javier العلي APRN.MANUFACTURING DIRECTOR documented in this encounter [facility] 09-01-2023 Note HNO ID: [id number] Author: Daisy Chavez APRN.MANUFACTURING DIRECTOR Service: ? Author Type: Nurse Practitioner Type: Progress Notes Filed: 09/01/2023 10:57 AM Note Text: Subjective Ear Pain Pertinent negatives include no chills, congestion, coughing, fever or sore throat. Jez Barrera is a 22 year old female who presents with left ear feeling achey and itchy for the past week. She had COVID 2 weeks ago. She is currently 26 weeks . She does not have a fever. Review of Systems Constitutional: Negative for chills and fever. HENT: Positive for ear pain. Negative for congestion, ear discharge, hearing loss and sore throat. Respiratory: Negative for cough. Cardiovascular: Negative. BP 122/82 Pulse 120 Temp 36.4 ?C (97.5 ?F) Resp 18 Wt 80.7 kg (178 lb) LMP 04/05/2022 (Exact Date) SpO2 97% BMI 30.08 kg/m? PAST MEDICAL HISTORY Diagnosis Date Chest pain Dyslexia Iron deficiency anemia PAST SURGICAL HISTORY Procedure Laterality Date 2D ECHO (EXEP) 06/29/2017 EF=55%, Mild [place] Dys, dilated RV and LA and small atrial septal defect. NONE ALLERGIES Patient has no known allergies. MEDICATIONS vit no.124/iron/folic ( VITAMIN ORAL) Take by mouth. amoxicillin (AMOXIL) 875 mg tablet Take 1 tablet by mouth two times a day for 7 days. sertraline (ZOLOFT) 25 mg tablet Take 1 tablet by mouth every afternoon. (Patient not taking: Reported on 09/01/2023) lamoTRIgine (LAMICTAL) 100 mg tablet Take 1 tablet by mouth once daily. (Patient not taking: Reported on 09/01/2023) FLUoxetine (PROZAC) 20 mg capsule Take 1 capsule by mouth once daily. (Patient not taking: Reported on 09/01/2023) Cholecalciferol, Vitamin D3, 50 mcg (2,000 unit) cap Take 1 capsule by mouth once daily. (Patient not taking: Reported on 06/11/2023) FAMILY HISTORY Problem Relation Age of Onset Alcohol/Drug Mother other (acid reflux) Mother Alcohol/Drug Father Anxiety disorder Sister Depression Sister Anxiety disorder Sister Depression Sister Asthma Sister Heart Paternal Uncle Alzheimer's Disease Maternal Grandmother other (cabg) Maternal Grandfather other (heart defects) Other Social History Tobacco Use Smoking status: Never Smokeless tobacco: Never Vaping Use Vaping Use: Never used Substance Use Topics Alcohol use: Yes Comment: social Drug use: Yes Types: Marijuana Comment: marijuana occasionally Objective Physical Exam Vitals and nursing note reviewed. Constitutional: General: She is not in acute distress. Appearance: Normal appearance. She is not ill-appearing. HENT: Right Ear: Tympanic membrane, ear canal and external ear normal. Left Ear: Ear canal and external ear normal. A middle ear effusion is present. Tympanic membrane is injected. Mouth/Throat: Pharynx: Uvula midline. Cardiovascular: Rate and Rhythm: Normal rate and regular rhythm. Heart sounds: Normal heart sounds. Pulmonary: Effort: Pulmonary effort is normal. No respiratory distress. Breath sounds: Normal breath sounds. No wheezing or rales. Musculoskeletal: Cervical back: Neck supple. Lymphadenopathy: Cervical: No cervical adenopathy. Skin: General: Skin is warm and dry. Findings: No erythema or rash. Neurological: Mental Status: She is alert. ASSESSMENT/PLAN: 1. Other acute nonsuppurative otitis media of left ear, recurrence not specified - ICD9: 381.00, ICD10: H65.192 - Will begin treatment with as per antibiotic as written, see orders - Supportive care with plenty of fluids, rest, and analgesia prn. - AMOXICILLIN 875 MG TABLET - Follow-up with your PCP in 3-5 days if symptoms have not improved or sooner if symptoms worsen - Discussed red flags and need for immediate medical evaluation if any occur. - Discussed supportive care treatment with fluids, rest and analgesia. - Discussed expected course of illness Daisy Chavez APRN.[facility] 06-11-2023 Note HNO ID: [id number] Author: Chrissie Gongora PA Service: ? Author Type: Physician Assisted Living Home Director Type: Progress Notes Filed: 06/11/2023 1:56 PM Note Text: This note was created using [employer]. Subjective Jez Barrera is a 22 year old female. HPI 22-year-old female presents for congestion, dizziness, sinus pressure, ear pain. Patient is 13 weeks . She states that she has been having some congestion, sinus pressure and dizziness for the past day. No cough. No fevers. No vomiting or diarrhea. She did a home COVID test that was negative. She has no vaginal bleeding or discharge. No abdominal pain or pelvic pain. No other complaints. PAST MEDICAL HISTORY Diagnosis Date Chest pain Dyslexia Iron deficiency anemia PAST SURGICAL HISTORY Procedure Laterality Date 2D ECHO (EXEP) 06/29/2017 EF=55%, Mild [place] Dys, dilated RV and LA and small atrial septal defect. NONE ALLERGIES Patient has no known allergies. MEDICATIONS sertraline (ZOLOFT) 25 mg tablet Take 1 tablet by mouth every afternoon. lamoTRIgine (LAMICTAL) 100 mg tablet Take 1 tablet by mouth once daily. FLUoxetine (PROZAC) 20 mg capsule Take 1 capsule by mouth once daily. Cholecalciferol, Vitamin D3, 50 mcg (2,000 unit) cap Take 1 capsule by mouth once daily. (Patient not taking: Reported on 06/11/2023) FAMILY HISTORY Problem Relation Age of Onset Alcohol/Drug Mother other (acid reflux) Mother Alcohol/Drug Father Anxiety disorder Sister Depression Sister Anxiety disorder Sister Depression Sister Asthma Sister Heart Paternal Uncle Alzheimer's Disease Maternal Grandmother other (cabg) Maternal Grandfather other (heart defects) Other Social History Tobacco Use Smoking status: Never Smokeless tobacco: Never Vaping Use Vaping Use: Never used Substance Use Topics Alcohol use: Yes Comment: social Drug use: Yes Types: Marijuana Comment: marijuana occasionally Review of Systems Constitutional: Negative for chills and fever. HENT: Positive for congestion, ear pain, rhinorrhea and sinus pressure. Negative for sore throat. Respiratory: Negative for cough and shortness of breath. Cardiovascular: Negative for chest pain. Gastrointestinal: Negative for diarrhea and vomiting. Neurological: Positive for dizziness. Negative for headaches. Objective BP 116/80 Pulse 70 Temp 36.8 ?C (98.3 ?F) (Tympanic) Resp 18 Wt 72.6 kg (160 lb) LMP 04/05/2022 (Exact Date) SpO2 100% BMI 27.04 kg/m? Physical Exam Vitals and nursing note reviewed. Constitutional: General: She is not in acute distress. Appearance: Normal appearance. She is not toxic-appearing. HENT: Right Ear: Tympanic membrane and ear canal normal. Left Ear: Tympanic membrane and ear canal normal. Nose: Nose normal. Mouth/Throat: Mouth: Mucous membranes are moist. Pharynx: No oropharyngeal exudate or posterior oropharyngeal erythema. Eyes: Conjunctiva/sclera: Conjunctivae normal. Cardiovascular: Rate and Rhythm: Normal rate and regular rhythm. Pulmonary: Effort: Pulmonary effort is normal. Breath sounds: Normal breath sounds. Abdominal: General: Abdomen is flat. Palpations: Abdomen is soft. Tenderness: There is no abdominal tenderness. Neurological: General: No focal deficit present. Mental Status: She is alert and oriented to person, place, and time. Assessment and Plan ASSESSMENT/PLAN: 1. URI, acute - ICD9: 465.9, ICD10: J06.9 - Discussed viral etiology and rationale for treatment. - Symptomatic treatment with prn analgesia - Supportive care with fluids and rest -Given a list of safe cold medication. -Advised to continue drinking plenty of fluids. -Declines COVID/flu swab. -Go to ER if you develop worsening dizziness, inability to ambulate, vomiting, inability to keep down fluids. Diagnosis and treatment plan were discussed and questions were answered to the patient's satisfaction. Pt acknowledged understanding of concepts and follow up plan. Specific signs and symptoms that would indicate the need for higher level of care were discussed in detail warranting prompt ER evaluation. MAMADOU [facility] 06-11-2023 History of Presen t illness Narrative This note was created using NoteWriter. Subjective Jez Barrera is a 22 year old female. HPI 22-year-old female presents for congestion, dizziness, sinus pressure, ear pain. Patient is 13 weeks . She states that she has been having some congestion, sinus pressure and dizziness for the past day. No cough. No fevers. No vomiting or diarrhea. She did a home COVID test that was negative. She has no vaginal bleeding or discharge. No abdominal pain or pelvic pain. No other complaints. PAST MEDICAL HISTORY Diagnosis Date Chest pain Dyslexia Iron deficiency anemia PAST SURGICAL HISTORY Procedure Laterality Date 2D ECHO (EXEP) 06/29/2017 EF=55%, Mild [place] Dys, dilated RV and LA and small atrial septal defect. NONE ALLERGIES Patient has no known allergies. MEDICATIONS sertraline (ZOLOFT) 25 mg tablet Take 1 tablet by mouth every afternoon. lamoTRIgine (LAMICTAL) 100 mg tablet Take 1 tablet by mouth once daily. FLUoxetine (PROZAC) 20 mg capsule Take 1 capsule by mouth once daily. Cholecalciferol, Vitamin D3, 50 mcg (2,000 unit) cap Take 1 capsule by mouth once daily. (Patient not taking: Reported on 06/11/2023) FAMILY HISTORY Problem Relation Age of Onset Alcohol/Drug Mother other (acid reflux) Mother Alcohol/Drug Father Anxiety disorder Sister Depression Sister Anxiety disorder Sister Depression Sister Asthma Sister Heart Paternal Uncle Alzheimer's Disease Maternal Grandmother other (cabg) Maternal Grandfather other (heart defects) Other Social History Tobacco Use Smoking status: Never Smokeless tobacco: Never Vaping Use Vaping Use: Never used Substance Use Topics Alcohol use: Yes Comment: social Drug use: Yes Types: Marijuana Comment: marijuana occasionally Review of Systems Constitutional: Negative for chills and fever. HENT: Positive for congestion, ear pain, rhinorrhea and sinus pressure. Negative for sore throat. Respiratory: Negative for cough and shortness of breath. Cardiovascular: Negative for chest pain. Gastrointestinal: Negative for diarrhea and vomiting. Neurological: Positive for dizziness. Negative for headaches. Objective BP 116/80 Pulse 70 Temp 36.8 C (98.3 F) (Tympanic) Resp 18 Wt 72.6 kg (160 lb) LMP 04/05/2022 (Exact Date) SpO2 100% BMI 27.04 kg/m Physical Exam Vitals and nursing note reviewed. Constitutional: General: She is not in acute distress. Appearance: Normal appearance. She is not toxic-appearing. HENT: Right Ear: Tympanic membrane and ear canal normal. Left Ear: Tympanic membrane and ear canal normal. Nose: Nose normal. Mouth/Throat: Mouth: Mucous membranes are moist. Pharynx: No oropharyngeal exudate or posterior oropharyngeal erythema. Eyes: Conjunctiva/sclera: Conjunctivae normal. Cardiovascular: Rate and Rhythm: Normal rate and regular rhythm. Pulmonary: Effort: Pulmonary effort is normal. Breath sounds: Normal breath sounds. Abdominal: General: Abdomen is flat. Palpations: Abdomen is soft. Tenderness: There is no abdominal tenderness. Neurological: General: No focal deficit present. Mental Status: She is alert and oriented to person, place, and time. Assessment and Plan ASSESSMENT/PLAN: 1. URI, acute - ICD9: 465.9, ICD10: J06.9 - Discussed viral etiology and rationale for treatment. - Symptomatic treatment with prn analgesia - Supportive care with fluids and rest -Given a list of safe cold medication. -Advised to continue drinking plenty of fluids. -Declines COVID/flu swab. -Go to ER if you develop worsening dizziness, inability to ambulate, vomiting, inability to keep down fluids. Diagnosis and treatment plan were discussed and questions were answered to the patient's satisfaction. Pt acknowledged understanding of concepts and follow up plan. Specific signs and symptoms that would indicate the need for higher level of care were discussed in detail warranting prompt ER evaluation. MAMADOU Perla documented in this encounter [facility] 06-11-2023 Instructions Chrissie Gongora PA - 06/11/2023 1:50 PM EDT Colds According to the National Institutes of Health, Americans suffer more than 1 billion colds a year. Young children get more colds than adults because of their close contact with other children. The average child gets 7-10 colds per year mainly during the winter. Germs also spread more in colder months because people stay indoors and are in closer quarters with each other. What is a cold? A cold is a contagious respiratory infection that is caused by a virus. More than 200 different viruses can cause colds. What are the symptoms of a cold? Runny nose Sneezing Cough Sore throat Headache Nasal congestion Fever may be present, especially in children These symptoms usually occur two to three days after infection and will usually end in seven to 10 days. How are colds spread? Colds are spread from one person to another through direct contact or by inhaling droplets of fluid that contain a cold virus. Cold viruses must reach the mucous membrane, the moist lining of the nostrils and mouth, in order for a person to become infected. Someone who has a cold probably has particles of a cold virus on them. Many surfaces may also have particles of a cold virus on them. If you touch an infected person or surface and then touch your eyes, nose, or mouth, you are more likely to catch a cold. How are colds treated? There is no cure for a cold, but getting enough rest is the best way to make a quick recovery. Several remedies may shorten a cold s duration and help you feel better. Talk with your doctor before taking any medication or giving medication to your child. Cilr-ont-lehgmhm cold medications may relieve the symptoms of a cold. However, the benefits of these medications are minimal. Some of these medications include the following: Acetaminophen relieves the aches and pains of a cold without upsetting the stomach. Aspirin should not be given to children under the age of 18 because of its link to Rekha's Syndrome, a disorder that mostly affects children 4 to 12 years old and causes brain damage and . Decongestants relieve nasal congestion. Antihistamines are used to stop a runny nose and sneezing. Cough suppressants may diminish a cough in adults, but these medications have not been found to be beneficial for children. Expectorants loosen mucous so that it can be easily expelled. Drinking plenty of fluids will keep the nose and throat moist and will loosen mucous. Stay away from alcohol and caffeine because they have a drying effect. Antibiotics should not be used to treat a cold. Antibiotics are effective against bacteria only. They will not work on colds (which are caused by viruses) and may cause future infections to be worse and last longer. Many people take supplements and herbal remedies, such as zinc, Vitamin C, and echinacea to treat and prevent colds. These remedies have been studied and their effectiveness has not been verified. Be careful not to take more supplements or herbal remedies than advised because they can cause unwelcome effects such as diarrhea. Tell your doctor if you are taking supplements and herbal remedies. How can you keep from getting a cold? Wash your hands--especially before eating and preparing food, after using the bathroom, after wiping your nose, and after coming in contact with someone who has a cold. Avoid touching your eyes and nose to prevent the spread of viruses from your hands. Avoid contact with those who have a cold. Clean frequently used surfaces (such as doorknobs) with a virus-killing disinfectant. Use hand sanitizers when water is not available. Get enough sleep, eat a healthy diet, and exercise. This will strengthen your immune system and enable you to fight off infections easier. When does a cold require a doctor s care? Contact your doctor if you have any of the following: High fever Chest pain Greenish mucous Ear pain An asthma flare-up Symptoms last longer than 10 days or get worse You may also have a bacterial infection, which can be diagnosed and treated by your doctor. Children with colds should be watched closely, and a doctor should be contacted if children have a high fever, are wheezing, are not eating, are sleepier than usual, cry a lot, or have ear or stomach pain. documented in this encounter [facility] 02-23-2023 Note HNO ID: [id number] Author: Jane Ulloa APRN.MANUFACTURING DIRECTOR Service: ? Author Type: Nurse Practitioner Type: Progress Notes Filed: 02/23/2023 10:10 PM Note Text: PSYC FOLLOW UP - PSYCHIATRIC PROGRESS NOTE DIAGNOSIS: Chronic PTSD MDD, recurrent, in partial remission Borderline Personality Disorder GAF: -70-61 Some mild symptoms or some difficulty in social, occupational, or school functioning, but generally functioning pretty well. TREATMENT PLAN: Increase Lamictal to address her mood related symptoms. Continue Prozac at the same dose. Continue individual psychotherapy. Send an update via [employer] regarding the increase in Lamictal. Follow up in July Medication Update: Lamictal 100 mg - take 1 tablet once daily. 2. Continue Prozac at the same dose. The effects and side effects of all the medications were reviewed in detail with the patient. She is in agreement with the treatment plan and aware to reach out with any questions, concerns, or worsening of symptoms prior to the next appointment. She is aware of the rash side effect associated with Lamictal. CC: Follow up regarding mood and anxiety With the patient consent, visit was performed virtually. I have communicated my name and active licensure. The patient's identity and physical location were verified at the time of this visit. Either the patient or their legal inside technical sales representative has been informed of the risks and benefits of -- and alternatives to -- treatment through a remote evaluation and consents to proceed with the evaluation remotely. HPI: Jez Barrera is a 22 year old Female with a history of PTSD, MDD, borderline personality disorder presenting today for follow-up. Date of last visit: 11/17/2022 Plan from last visit: Increase Lamictal to help with her mood disorder. Start Prozac to help with her anxiety concerns. Schedule with a therapist to start EMDR therapy. Follow up in 4 to 6 weeks. Today Jez shares that she moved. Has been having issues with her wifi. She has started therapy and she is giving her best try. They are working on relationship management and activities to control her emotions. She has been getting support for her borderline tendencies. She denies any rashes from the current dose in the last 2 months of Lamictal. Feels that Prozac at this dose is helping with anxiety. Denies any side effects from her medications. Has noticed that she is sleeping more and noticed some feelings of depression. Interested in trying a higher dose of Lamictal. She has been working as a [employer] [employer]. She is enjoying her job and her schedule. Her appetite has been low for a while. She typically eats 2 meals a day. Her appetite has fluctuated in the past and does not think that it is related to medication. Interval Progress: Slightly improved Risks and benefits of the medication, including any black box warnings, were discussed with the patient. Social History: See HPI PATIENT DATA: Generalized Anxiety Disorder Scale (JHONNY-7) JHONNY - 7 SCORES 10/17/2022 11/15/2022 02/23/2023 JHONNY-7 Score 6 8 4 (0-4) minimal anxiety, (5-9) mild anxiety, (10-14) moderate anxiety, (15-21) severe anxiety Patient Health Questionnaire (PHQ-9) PHQ-9 10/17/2022 11/15/2022 02/23/2023 Score 9 6 12 (0-4) minimal depression, (5-9) mild depression, (10-14) moderate depression, (15-19) moderately severe depression, (20-27) severe depression ROS: General: Negative for fever, malaise, unintentional weight loss HEENT: Negative for recent changes in vision or hearing, no nasal drainage Respiratory: Negative for cough, wheezing or SOB Cardiovascular: Negative for chest pain GI: Negative for nausea, vomiting, change in bowel habits MUSCULOSKELETAL: Negative for acute back or joint pain SKIN: Negative for rash NEURO: Negative for headaches, seizures, focal neurological deficits All other systems negative. VITAL SIGNS: BP Temp Pulse Resp SpO2 MENTAL STATUS EXAMINATION: Appearance: Appropriately groomed, appears stated age Behavior: Appropriately engaged Psychomotor: No psychomotor agitation Cognition Level of Consciousness: Awake and alert. No fluctuation in wakefulness. Orientation: Grossly oriented Memory: Intact Attention/Concentration: Good Fund of Knowledge: Able to demonstrate an awareness of current events. Mood: Euthymic Affect: Congruent to mood Speech/Language: Appropriate tone, prosody, nima, phonetics, and syntax Thought Form: Goal-directed. No loosening of associations. Thought Content: No delusions noted or endorsed. Perceptual Disturbances: Did not appear to respond to auditory stimuli. Safety: Suicidal Ideations: No suicidal ideation, intent or plan. Homicidal Ideations: No homicidal ideation, intent or plan. Insight: Appropriate Judgment: Appropriate I spent a total of 28 minutes on the date of the service which included preparing to see the patient, [id number] (more content not included)... [facility] 02-23-2023 Instructions Jane Ulloa APRN.CNP - 02/23/2023 4:25 PM EDT Mich Pearson, It was good to talk with you today. Below is a summary of the plan that we discussed during your appointment for reference. Of course, if you have any questions or concerns do not hesitate to reach out to me via a message or call. Jane Ro APRN.CNP PLAN AND FOLLOW UP: YOU SHOULD SEEK IMMEDIATE MEDICAL ATTENTION AT THE NEAREST EMERGENCY DEPARTMENT OR BY CALLING 911, IF ANY OF THE FOLLOWING OCCURS: - New or worsening thoughts of harming yourself (suicidal thoughts) or others (homicidal thoughts) - Not feeling safe at home or worrying about your ability to remain safe at home If you are having thoughts of harming yourself or others, then you can: - Call the National Suicide Hotline at 8-230-WUPFDHQ ( ) or 1-817-926-TALK (6566) - Text 1GOPE to 320499 Medication Update: Lamictal 100 mg - take 1 tablet once daily. 2. Continue Prozac at the same dose. Next appointment: --Schedule in July or sooner if needed -- You may call the department appointment line at [phone] to schedule your appointment. -- Please call my nurse Dominique at [phone] or send me a message in [employer] with any questions or concerns between appointments. documented in this encounter [facility] 02-23-2023 History of Presen t illness Narrative Images from the original note were not included. PSYC FOLLOW UP - PSYCHIATRIC PROGRESS NOTE DIAGNOSIS: Chronic PTSD MDD, recurrent, in partial remission Borderline Personality Disorder GAF: -70-61 Some mild symptoms or some difficulty in social, occupational, or school functioning, but generally functioning pretty well. TREATMENT PLAN: Increase Lamictal to address her mood related symptoms. Continue Prozac at the same dose. Continue individual psychotherapy. Send an update via [employer] regarding the increase in Lamictal. Follow up in July Medication Update: Lamictal 100 mg - take 1 tablet once daily. 2. Continue Prozac at the same dose. The effects and side effects of all the medications were reviewed in detail with the patient. She is in agreement with the treatment plan and aware to reach out with any questions, concerns, or worsening of symptoms prior to the next appointment. She is aware of the rash side effect associated with Lamictal. CC: Follow up regarding mood and anxiety With the patient consent, visit was performed virtually. I have communicated my name and active licensure. The patient's identity and physical location were verified at the time of this visit. Either the patient or their legal inside technical sales representative has been informed of the risks and benefits of -- and alternatives to -- treatment through a remote evaluation and consents to proceed with the evaluation remotely. HPI: Jez Barrera is a 22 year old Female with a history of PTSD, MDD, borderline personality disorder presenting today for follow-up. Date of last visit: 11/17/2022 Plan from last visit: Increase Lamictal to help with her mood disorder. Start Prozac to help with her anxiety concerns. Schedule with a therapist to start EMDR therapy. Follow up in 4 to 6 weeks. Today Jez shares that she moved. Has been having issues with her wifi. She has started therapy and she is giving her best try. They are working on relationship management and activities to control her emotions. She has been getting support for her borderline tendencies. She denies any rashes from the current dose in the last 2 months of Lamictal. Feels that Prozac at this dose is helping with anxiety. Denies any side effects from her medications. Has noticed that she is sleeping more and noticed some feelings of depression. Interested in trying a higher dose of Lamictal. She has been working as a [employer]. She is enjoying her job and her schedule. Her appetite has been low for a while. She typically eats 2 meals a day. Her appetite has fluctuated in the past and does not think that it is related to medication. Interval Progress: Slightly improved Risks and benefits of the medication, including any black box warnings, were discussed with the patient. Social History: See HPI PATIENT DATA: Generalized Anxiety Disorder Scale (JHONNY-7) JHONNY - 7 SCORES 10/17/2022 11/15/2022 02/23/2023 JHONNY-7 Score 6 8 4 (0-4) minimal anxiety, (5-9) mild anxiety, (10-14) moderate anxiety, (15-21) severe anxiety Patient Health Questionnaire (PHQ-9) PHQ-9 10/17/2022 11/15/2022 02/23/2023 Score 9 6 12 (0-4) minimal depression, (5-9) mild depression, (10-14) moderate depression, (15-19) moderately severe depression, (20-27) severe depression ROS: General: Negative for fever, malaise, unintentional weight loss HEENT: Negative for recent changes in vision or hearing, no nasal drainage Respiratory: Negative for cough, wheezing or SOB Cardiovascular: Negative for chest pain GI: Negative for nausea, vomiting, change in bowel habits MUSCULOSKELETAL: Negative for acute back or joint pain SKIN: Negative for rash NEURO: Negative for headaches, seizures, focal neurological deficits All other systems negative. VITAL SIGNS: BP Temp Pulse Resp SpO2 MENTAL STATUS EXAMINATION: Appearance: Appropriately groomed, appears stated age Behavior: Appropriately engaged Psychomotor: No psychomotor agitation Cognition Level of Consciousness: Awake and alert. No fluctuation in wakefulness. Orientation: Grossly oriented Memory: Intact Attention/Concentration: Good Fund of Knowledge: Able to demonstrate an awareness of current events. Mood: Euthymic Affect: Congruent to mood Speech/Language: Appropriate tone, prosody, nima, phonetics, and syntax Thought Form: Goal-directed. No loosening of associations. Thought Content: No delusions noted or endorsed. Perceptual Disturbances: Did not appear to respond to auditory stimuli. Safety: Suicidal Ideations: No suicidal ideation, intent or plan. Homicidal Ideations: No homicidal ideation, intent or plan. Insight: Appropriate Judgment: Appropriate I spent a total of 28 minutes on the date of the service which included preparing to see the patient, [id number] patient care, completing clinical documentation, and counseling and educating the patient/family/caregiver, ordering medications/labs. Jane Ulloa APRN.CNP February 23, 2023 4:10 PM This note was partially generated using [employer] voice recognition system. Note was reviewed for accuracy. There may be minor misspellings or grammar miscues with [employer] voice recognition. documented in this encounter [facility] 02-06-2023 Miscellaneous Notes Message to call office to schedule FU. Patient should schedule a follow up appointment. Refills will be provided after. documented in this encounter [facility] 02-03-2023 Note HNO ID: [id number] Author: MAMADOU Perla Service: ? Author Type: Physician Assisted Living Home Director Type: Progress Notes Filed: 02/03/2023 11:05 AM Note Text: This note was created using [employer]. Subjective Jez Barrera is a 22 year old female. HPI 22-year-old female presents for sinus congestion, sore throat, achiness, cough. Patient states she has had nasal congestion, sinus pressure for the past 2 weeks. Has gotten worse over the past few days. She has been using Claritin OTC with minimal improvement. She states she has gotten a sore throat and cough for the past 2 weeks as well. No fevers. She does work in a half-way. No vomiting or diarrhea. No chest pain or shortness of breath. No other complaints. PAST MEDICAL HISTORY Diagnosis Date Chest pain Dyslexia Iron deficiency anemia PAST SURGICAL HISTORY Procedure Laterality Date 2D ECHO (EXEP) 06/29/2017 EF=55%, Mild [place] Dys, dilated RV and LA and small atrial septal defect. NONE ALLERGIES Patient has no known allergies. MEDICATIONS lamoTRIgine (LAMICTAL) 25 mg tablet Take 3 tablets by mouth once daily. FLUoxetine (PROZAC) 10 mg capsule Take 1 capsule by mouth once daily for 7 days, THEN 2 capsules once daily. Cholecalciferol, Vitamin D3, 50 mcg (2,000 unit) cap Take 1 capsule by mouth once daily. lactobacillus rhamnosus (CULTURELLE) 15 billion cell capsule Take 1 capsule by mouth once daily. FAMILY HISTORY Problem Relation Age of Onset Alcohol/Drug Mother other (acid reflux) Mother Alcohol/Drug Father Anxiety disorder Sister Depression Sister Anxiety disorder Sister Depression Sister Asthma Sister Heart Paternal Uncle Alzheimer's Disease Maternal Grandmother other (cabg) Maternal Grandfather other (heart defects) Other Social History Tobacco Use Smoking status: Never Smokeless tobacco: Never Vaping Use Vaping Use: Never used Substance Use Topics Alcohol use: Yes Comment: social Drug use: Yes Types: Marijuana Comment: marijuana occasionally Review of Systems Constitutional: Positive for chills. Negative for fever. HENT: Positive for congestion, sinus pressure, sinus pain and sore throat. Negative for ear pain. Respiratory: Positive for cough. Negative for shortness of breath. Cardiovascular: Negative for chest pain. Gastrointestinal: Negative for diarrhea and vomiting. Musculoskeletal: Positive for myalgias. Objective BP 108/80 Pulse 89 Temp 37 ?C (98.6 ?F) Resp 16 Wt 73.9 kg (163 lb) LMP 04/05/2022 (Exact Date) SpO2 95% BMI 27.55 kg/m? Physical Exam Vitals and nursing note reviewed. Constitutional: General: She is not in acute distress. Appearance: Normal appearance. She is not toxic-appearing. HENT: Right Ear: Tympanic membrane and ear canal normal. Left Ear: Tympanic membrane and ear canal normal. Nose: Congestion present. Mouth/Throat: Mouth: Mucous membranes are moist. Pharynx: Uvula midline. Posterior oropharyngeal erythema present. No oropharyngeal exudate. Tonsils: No tonsillar exudate or tonsillar abscesses. 1+ on the right. 1+ on the left. Eyes: Conjunctiva/sclera: Conjunctivae normal. Cardiovascular: Rate and Rhythm: Normal rate and regular rhythm. Pulmonary: Effort: Pulmonary effort is normal. Breath sounds: Normal breath sounds. Neurological: Mental Status: She is alert. Assessment and Plan ASSESSMENT/PLAN: 1. Bacterial sinusitis - ICD9: 473.9, 041.9, ICD10: J32.9, B96.89 (primary diagnosis) - sinus symptoms x 2 wks - Will begin treatment with Augmentin 875 mg PO BID for 5 days - Supportive care with plenty of fluids, rest, and analgesia prn. 2. Sore throat - ICD9: 462, ICD10: J02.9 - suspect viral - Alere Strep Test negative, no culture pending - Discussed supportive care treatment with fluids, rest and analgesia. - STREP A MOLECULAR (POC) 3. URI, acute - ICD9: 465.9, ICD10: J06.9 - Discussed viral etiology and rationale for treatment. - Symptomatic treatment with prn analgesia - Supportive care with fluids and rest - COVID WITH FLUA+B, ROUTINE - out of window Tamiflu Diagnosis and treatment plan were discussed and questions were answered to the patient's satisfaction. Pt acknowledged understanding of concepts and follow up plan. Specific signs and symptoms that would indicate the need for higher level of care were discussed in detail warranting prompt ER evaluation. MAMADOU Perla [facility] 11-17-2022 Note HNO ID: [id number] Author: Jane Ulloa APRN.MANUFACTURING DIRECTOR Service: ? Author Type: Nurse Practitioner Type: Progress Notes Filed: 11/23/2022 3:17 PM Note Text: PSYC FOLLOW UP - PSYCHIATRIC PROGRESS NOTE DIAGNOSIS: Chronic PTSD MDD, recurrent, moderate Borderline personality disorder GAF: -60-51 Moderate symptoms or moderate difficulty in social, occupational or school functioning. TREATMENT PLAN: Increase Lamictal to help with her mood disorder. Start Prozac to help with her anxiety concerns. Schedule with a therapist to start EMDR therapy. Follow up in 4 to 6 weeks. Medication Update: Lamictal 25 mg - take 3 tablets once daily. Prozac 10 mg - take 1 capsule once daily for 7 days, then take 2 capsules once daily after that. The effects and side effects of all the medications were reviewed in detail with the patient. She is aware of the rash side effect associated with Lamictal. Patient is in agreement with the treatment plan and aware to reach out with any questions, concerns, or worsening of symptoms prior to the next appointment. CC: Follow up regarding mood and anxiety With the patient consent, visit was performed virtually. HPI: Jez Barrera is a 22 year old Female with a history of Chronic PTSD, MDD, and borderline personality disorder presenting today for follow-up. Date of last visit: 10/17/2022 Plan from last visit: Increase Lamictal to help address her mood related symptoms. Switch Celexa to Zoloft to help manage the sexual side effects and the withdrawal the patient was experiencing. Continue to work on decreasing marijuana use. Encouraged to spend more time on her DBT workbook now that her classes are over. Start individual psychotherapy and EMDR therapy. Has an intake in November. Follow up in 4 weeks. Today Jez shares that she had a rash and stopped Lamictal. [place] worse being off the Lamictal. She was more irritable without it. The rash resolved when the dose of Lamictal was decreased. She has been tolerating the 50 mg dose of Lamictal. In agreement to increase the Lamictal to 75 mg and very gradually tapering the dose. She stopped taking the Zoloft as she felt that it was making her anxiety worse. It impacted her libido negatively. Currently, she has noticed she is getting anxious. There are some instances where she feels overwhelmed. She has tried Prozac in the past and tolerated that without any side effects. She is still trying to schedule an appointment for EMDR. She has been working on the DBT workbook. 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 She is excited about the change in her role. Denies concerns with her physical health, sleep, or appetite. Interval Progress: Slightly improved Risks and benefits of the medication, including any black box warnings, were discussed with the patient. Social History: See HPI PATIENT DATA: Generalized Anxiety Disorder Scale (JHONNY-7) JHONNY - 7 SCORES 08/13/2022 10/17/2022 11/15/2022 JHONNY-7 Score 6 6 8 (0-4) minimal anxiety, (5-9) mild anxiety, (10-14) moderate anxiety, (15-21) severe anxiety Patient Health Questionnaire (PHQ-9) PHQ-9 08/13/2022 10/17/2022 11/15/2022 Score 13 9 6 (0-4) minimal depression, (5-9) mild depression, (10-14) moderate depression, (15-19) moderately severe depression, (20-27) severe depression ROS: General: Negative for fever, malaise, unintentional weight loss HEENT: Negative for recent changes in vision or hearing, no nasal drainage Respiratory: Negative for cough, wheezing or SOB Cardiovascular: Negative for chest pain GI: Negative for nausea, vomiting, change in bowel habits MUSCULOSKELETAL: Negative for acute back or joint pain SKIN: Negative for rash NEURO: Negative for headaches, seizures, focal neurological deficits All other systems negative. VITAL SIGNS: BP Temp Pulse Resp SpO2 MENTAL STATUS EXAMINATION: Appearance: Appropriately groomed, appears stated age Behavior: Appropriately engaged Psychomotor: No psychomotor agitation Cognition Level of Consciousness: Awake and alert. No fluctuation in wakefulness. Orientation: Grossly oriented Memory: Intact Attention/Concentration: Good Fund of Knowledge: Able to demonstrate an awareness of current events. Mood: Euthymic Affect: Congruent to mood Speech/Language: Appropriate tone, prosody, nima, phonetics, and syntax Thought Form: Goal-directed. No loosening of associations. Thought Content: No delusions noted or endorsed. Perceptual Disturbances: Did not appear to respond to auditory stimuli. Safety: Suicidal Ideations: No suicidal ideation, intent or plan. Homicidal Ideations: No homicidal ideation, intent or plan. Insight: Appropriate Judgment: Appropriate I spent a total of 28 minutes on the date of the service which included preparing to see the patient, [id number] patient care, completing clinical documentation, and counseling and educ (more content not included)... [facility] 11-17-2022 Instructions Jane Ulloa APRN.CNP - 11/17/2022 11:57 AM EST Mich Pearson, It was good to talk with you today. Below is a summary of the plan that we discussed during your appointment for reference. Of course, if you have any questions or concerns do not hesitate to reach out to me via a message or call. Best, Jane Ulloa APRN.CNP PLAN AND FOLLOW UP: YOU SHOULD SEEK IMMEDIATE MEDICAL ATTENTION AT THE NEAREST EMERGENCY DEPARTMENT OR BY CALLING 911, IF ANY OF THE FOLLOWING OCCURS: - New or worsening thoughts of harming yourself (suicidal thoughts) or others (homicidal thoughts) - Not feeling safe at home or worrying about your ability to remain safe at home If you are having thoughts of harming yourself or others, then you can: - Call the National Suicide Hotline at 7-233-UKZWIMB ( ) or 1-403-542-TALK (6815) - Text 4HSHE to 931260 Medication Update: Lamictal 25 mg - take 3 tablets once daily. Prozac 10 mg - take 1 capsule once daily for 7 days, then take 2 capsules once daily after that. Next appointment: --Schedule in 4 to 6 weeks or sooner if needed -- You may call the department appointment line at [phone] to schedule your appointment. -- Please call my nurse Dominique at [phone] or send me a message in [employer] with any questions or concerns between appointments. documented in this encounter [facility] 11-17-2022 History of Presen t illness Narrative Images from the original note were not included. PSYC FOLLOW UP - PSYCHIATRIC PROGRESS NOTE DIAGNOSIS: Chronic PTSD MDD, recurrent, moderate Borderline personality disorder GAF: -60-51 Moderate symptoms or moderate difficulty in social, occupational or school functioning. TREATMENT PLAN: Increase Lamictal to help with her mood disorder. Start Prozac to help with her anxiety concerns. Schedule with a therapist to start EMDR therapy. Follow up in 4 to 6 weeks. Medication Update: Lamictal 25 mg - take 3 tablets once daily. Prozac 10 mg - take 1 capsule once daily for 7 days, then take 2 capsules once daily after that. The effects and side effects of all the medications were reviewed in detail with the patient. She is aware of the rash side effect associated with Lamictal. Patient is in agreement with the treatment plan and aware to reach out with any questions, concerns, or worsening of symptoms prior to the next appointment. CC: Follow up regarding mood and anxiety With the patient consent, visit was performed virtually. HPI: Jez Barrera is a 22 year old Female with a history of Chronic PTSD, MDD, and borderline personality disorder presenting today for follow-up. Date of last visit: 10/17/2022 Plan from last visit: Increase Lamictal to help address her mood related symptoms. Switch Celexa to Zoloft to help manage the sexual side effects and the withdrawal the patient was experiencing. Continue to work on decreasing marijuana use. Encouraged to spend more time on her DBT workbook now that her classes are over. Start individual psychotherapy and EMDR therapy. Has an intake in November. Follow up in 4 weeks. Today Jez shares that she had a rash and stopped Lamictal. [place] worse being off the Lamictal. She was more irritable without it. The rash resolved when the dose of Lamictal was decreased. She has been tolerating the 50 mg dose of Lamictal. In agreement to increase the Lamictal to 75 mg and very gradually tapering the dose. She stopped taking the Zoloft as she felt that it was making her anxiety worse. It impacted her libido negatively. Currently, she has noticed she is getting anxious. There are some instances where she feels overwhelmed. She has tried Prozac in the past and tolerated that without any side effects. She is still trying to schedule an appointment for EMDR. She has been working on the DBT workbook. 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 She is excited about the change in her role. Denies concerns with her physical health, sleep, or appetite. Interval Progress: Slightly improved Risks and benefits of the medication, including any black box warnings, were discussed with the patient. Social History: See HPI PATIENT DATA: Generalized Anxiety Disorder Scale (JHONNY-7) JHONNY - 7 SCORES 08/13/2022 10/17/2022 11/15/2022 JHONNY-7 Score 6 6 8 (0-4) minimal anxiety, (5-9) mild anxiety, (10-14) moderate anxiety, (15-21) severe anxiety Patient Health Questionnaire (PHQ-9) PHQ-9 08/13/2022 10/17/2022 11/15/2022 Score 13 9 6 (0-4) minimal depression, (5-9) mild depression, (10-14) moderate depression, (15-19) moderately severe depression, (20-27) severe depression ROS: General: Negative for fever, malaise, unintentional weight loss HEENT: Negative for recent changes in vision or hearing, no nasal drainage Respiratory: Negative for cough, wheezing or SOB Cardiovascular: Negative for chest pain GI: Negative for nausea, vomiting, change in bowel habits MUSCULOSKELETAL: Negative for acute back or joint pain SKIN: Negative for rash NEURO: Negative for headaches, seizures, focal neurological deficits All other systems negative. VITAL SIGNS: BP Temp Pulse Resp SpO2 MENTAL STATUS EXAMINATION: Appearance: Appropriately groomed, appears stated age Behavior: Appropriately engaged Psychomotor: No psychomotor agitation Cognition Level of Consciousness: Awake and alert. No fluctuation in wakefulness. Orientation: Grossly oriented Memory: Intact Attention/Concentration: Good Fund of Knowledge: Able to demonstrate an awareness of current events. Mood: Euthymic Affect: Congruent to mood Speech/Language: Appropriate tone, prosody, nima, phonetics, and syntax Thought Form: Goal-directed. No loosening of associations. Thought Content: No delusions noted or endorsed. Perceptual Disturbances: Did not appear to respond to auditory stimuli. Safety: Suicidal Ideations: No suicidal ideation, intent or plan. Homicidal Ideations: No homicidal ideation, intent or plan. Insight: Appropriate Judgment: Appropriate I spent a total of 28 minutes on the date of the service which included preparing to see the patient, [id number] patient care, completing clinical documentation, and counseling and educating the patient/family/caregiver, ordering medications/labs. Jane Ulloa APRN.EMILY November 17, 2022 11:19 AM This note was partially generated using Respicardia voice recognition system. Note was reviewed for accuracy. There may be minor misspellings or grammar miscues with [employer] voice recognition. documented in this encounter [facility] 10-17-2022 Note HNO ID: [id number] Author: Jane Ulloa APRN.MANUFACTURING DIRECTOR Service: ? Author Type: Nurse Practitioner Type: Progress Notes Filed: 10/24/2022 4:32 PM Note Text: PSYC FOLLOW UP - PSYCHIATRIC PROGRESS NOTE DIAGNOSIS: MDD, recurrent, moderate PTSD, chronic Borderline Personality Disorder GAF: -60-51 Moderate symptoms or moderate difficulty in social, occupational or school functioning. TREATMENT PLAN: Increase Lamictal to help address her mood related symptoms. Switch Celexa to Zoloft to help manage the sexual side effects and the withdrawal the patient was experiencing. Continue to work on decreasing marijuana use. Encouraged to spend more time on her DBT workbook now that her classes are over. Start individual psychotherapy and EMDR therapy. Has an intake in November. Follow up in 4 weeks. Medication Update: Stop Celexa. Start Zoloft (Sertraline) 50 mg - take 1 tablet once daily. Increase Lamictal to 100 mg - take 1 tablet once daily. The effects and side effects of all the medications were reviewed in detail with the patient. She is aware of the rash side effect associated with Lamictal. Patient is in agreement with the treatment plan and aware to reach out with any questions, concerns, or worsening of symptoms prior to the next appointment. CC: Follow up regarding mood and anxiety. With the patient consent, visit was performed virtually. HPI: Jez Barrera is a 21 year old Female with a history of MDD, PTSD, and Borderline Personality Disorder presenting today for follow-up. Date of last visit: 08/14/2022 Plan from last visit: 1. Start Lamictal to address her mood concerns. 2. Continue Celexa at the same dose but consider in the future switching it to Zoloft due to patient experiencing sexual side effects on Celexa. 3. Counseled patient to abstain from mariajuana use. 4. Encouraged to work on learning DBT skills via workbook as patient is not able to do the DBT based IOP due to her work schedule to help her manage her struggles with borderline tendencies. 5. Encouraged to start therapy and engage in EMDR therapy to address her trauma. Today Jez shares that he has been feeling much better with her mood. I am not feeling numb and living the same day . She is going to be starting with a therapist in [facility]. She has noticed Lamictal helping with her mood. Concerned about sexual side effects and withdrawal from Celexa. Discussed switching to Zoloft instead. She has decreased her marijuana use. She has ordered a DBT workbook but she was busy with school. The class for school is over now and she feels good about the decision to complete the class. 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 It is a promotion with a raise for her at work. She is excited about that. Interval Progress: Improved Risks and benefits of the medication, including any black box warnings, were discussed with the patient. Social History: See HPI PATIENT DATA: Generalized Anxiety Disorder Scale (JHONNY-7) JHONNY - 7 SCORES 08/12/2022 08/13/2022 10/17/2022 JHONNY-7 Score 6 6 6 (0-4) minimal anxiety, (5-9) mild anxiety, (10-14) moderate anxiety, (15-21) severe anxiety Patient Health Questionnaire (PHQ-9) PHQ-9 08/12/2022 08/13/2022 10/17/2022 Score 13 13 9 (0-4) minimal depression, (5-9) mild depression, (10-14) moderate depression, (15-19) moderately severe depression, (20-27) severe depression ROS: General: Negative for fever, malaise, unintentional weight loss HEENT: Negative for recent changes in vision or hearing, no nasal drainage Respiratory: Negative for cough, wheezing or SOB Cardiovascular: Negative for chest pain GI: Negative for nausea, vomiting, change in bowel habits MUSCULOSKELETAL: Negative for acute back or joint pain SKIN: Negative for rash NEURO: Negative for headaches, seizures, focal neurological deficits All other systems negative. VITAL SIGNS: BP Temp Pulse Resp SpO2 MENTAL STATUS EXAMINATION: Appearance: Appropriately groomed, appears stated age Behavior: Appropriately engaged Psychomotor: No psychomotor agitation Cognition Level of Consciousness: Awake and alert. No fluctuation in wakefulness. Orientation: Grossly oriented Memory: Intact Attention/Concentration: Good Fund of Knowledge: Able to demonstrate an awareness of current events. Mood: Euthymic Affect: Congruent to mood Speech/Language: Appropriate tone, prosody, nima, phonetics, and syntax Thought Form: Goal-directed. No loosening of associations. Thought Content: No delusions noted or endorsed. Perceptual Disturbances: Did not appear to respond to auditory stimuli. Safety: Suicidal Ideations: No suicidal ideation, intent or plan. Homicidal Ideations: No homicidal ideation, intent or plan. Insight: Appropriate Judgment: Appropriate I spent a total of 28 minutes on the date of the service which included preparing to see the patient, fac (more content not included)... [facility] 10-17-2022 Instructions Jane Ulloa APRN.CNP - 10/17/2022 10:59 AM EST Mich Pearson, It was good to talk with you today. Below is a summary of the plan that we discussed during your appointment for reference. Of course, if you have any questions or concerns do not hesitate to reach out to me via a message or call. Best, Jane Ulloa APRN.CNP PLAN AND FOLLOW UP: YOU SHOULD SEEK IMMEDIATE MEDICAL ATTENTION AT THE NEAREST EMERGENCY DEPARTMENT OR BY CALLING 911, IF ANY OF THE FOLLOWING OCCURS: - New or worsening thoughts of harming yourself (suicidal thoughts) or others (homicidal thoughts) - Not feeling safe at home or worrying about your ability to remain safe at home If you are having thoughts of harming yourself or others, then you can: - Call the National Suicide Hotline at 3-018-OVFBHCJ ( ) or 0-537-354-TALK (0888) - Text 4HGJQ to 570280 Medication Update: Stop Celexa. Start Zoloft (Sertraline) 50 mg - take 1 tablet once daily. Increase Lamictal to 100 mg - take 1 tablet once daily. Next appointment: --Schedule in 4 weeks or sooner if needed -- You may call the department appointment line at [phone] to schedule your appointment. -- Please call my nurse Dominique at [phone] or send me a message in [employer] with any questions or concerns between appointments. documented in this encounter [facility] 10-17-2022 History of Presen t illness Narrative Images from the original note were not included. PSYC FOLLOW UP - PSYCHIATRIC PROGRESS NOTE DIAGNOSIS: MDD, recurrent, moderate PTSD, chronic Borderline Personality Disorder GAF: -60-51 Moderate symptoms or moderate difficulty in social, occupational or school functioning. TREATMENT PLAN: Increase Lamictal to help address her mood related symptoms. Switch Celexa to Zoloft to help manage the sexual side effects and the withdrawal the patient was experiencing. Continue to work on decreasing marijuana use. Encouraged to spend more time on her DBT workbook now that her classes are over. Start individual psychotherapy and EMDR therapy. Has an intake in November. Follow up in 4 weeks. Medication Update: Stop Celexa. Start Zoloft (Sertraline) 50 mg - take 1 tablet once daily. Increase Lamictal to 100 mg - take 1 tablet once daily. The effects and side effects of all the medications were reviewed in detail with the patient. She is aware of the rash side effect associated with Lamictal. Patient is in agreement with the treatment plan and aware to reach out with any questions, concerns, or worsening of symptoms prior to the next appointment. CC: Follow up regarding mood and anxiety. With the patient consent, visit was performed virtually. HPI: Jez Barrera is a 21 year old Female with a history of MDD, PTSD, and Borderline Personality Disorder presenting today for follow-up. Date of last visit: 08/14/2022 Plan from last visit: 1. Start Lamictal to address her mood concerns. 2. Continue Celexa at the same dose but consider in the future switching it to Zoloft due to patient experiencing sexual side effects on Celexa. 3. Counseled patient to abstain from mariajuana use. 4. Encouraged to work on learning DBT skills via workbook as patient is not able to do the DBT based IOP due to her work schedule to help her manage her struggles with borderline tendencies. 5. Encouraged to start therapy and engage in EMDR therapy to address her trauma. Today Jez shares that he has been feeling much better with her mood. I am not feeling numb and living the same day . She is going to be starting with a therapist in [facility]. She has noticed Lamictal helping with her mood. Concerned about sexual side effects and withdrawal from Celexa. Discussed switching to Zoloft instead. She has decreased her marijuana use. She has ordered a DBT workbook but she was busy with school. The class for school is over now and she feels good about the decision to complete the class. 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 It is a promotion with a raise for her at work. She is excited about that. Interval Progress: Improved Risks and benefits of the medication, including any black box warnings, were discussed with the patient. Social History: See HPI PATIENT DATA: Generalized Anxiety Disorder Scale (JHONNY-7) JHONNY - 7 SCORES 08/12/2022 08/13/2022 10/17/2022 JHONNY-7 Score 6 6 6 (0-4) minimal anxiety, (5-9) mild anxiety, (10-14) moderate anxiety, (15-21) severe anxiety Patient Health Questionnaire (PHQ-9) PHQ-9 08/12/2022 08/13/2022 10/17/2022 Score 13 13 9 (0-4) minimal depression, (5-9) mild depression, (10-14) moderate depression, (15-19) moderately severe depression, (20-27) severe depression ROS: General: Negative for fever, malaise, unintentional weight loss HEENT: Negative for recent changes in vision or hearing, no nasal drainage Respiratory: Negative for cough, wheezing or SOB Cardiovascular: Negative for chest pain GI: Negative for nausea, vomiting, change in bowel habits MUSCULOSKELETAL: Negative for acute back or joint pain SKIN: Negative for rash NEURO: Negative for headaches, seizures, focal neurological deficits All other systems negative. VITAL SIGNS: BP Temp Pulse Resp SpO2 MENTAL STATUS EXAMINATION: Appearance: Appropriately groomed, appears stated age Behavior: Appropriately engaged Psychomotor: No psychomotor agitation Cognition Level of Consciousness: Awake and alert. No fluctuation in wakefulness. Orientation: Grossly oriented Memory: Intact Attention/Concentration: Good Fund of Knowledge: Able to demonstrate an awareness of current events. Mood: Euthymic Affect: Congruent to mood Speech/Language: Appropriate tone, prosody, nima, phonetics, and syntax Thought Form: Goal-directed. No loosening of associations. Thought Content: No delusions noted or endorsed. Perceptual Disturbances: Did not appear to respond to auditory stimuli. Safety: Suicidal Ideations: No suicidal ideation, intent or plan. Homicidal Ideations: No homicidal ideation, intent or plan. Insight: Appropriate Judgment: Appropriate I spent a total of 28 minutes on the date of the service which included preparing to see the patient, [id number] patient care, completing clinical documentation, and counseling and educating the patient/family/caregiver, ordering medications/labs. Jane Ulloa APRN.MANUFACTURING DIRECTOR October 17, 2022 10:40 AM This note was partially generated using Respicardia voice recognition system. Note was reviewed for accuracy. There may be minor misspellings or grammar miscues with Dragon voice recognition. documented in this encounter [facility] 09-29-2022 Miscellaneous Notes Patient phones requesting refills as follows: Requested Prescriptions Pending Prescriptions Disp Refills citalopram hydrobromide (CELEXA) 10 mg tablet 30 tablet 2 Sig: Take 1 tablet by mouth once daily. LUPE-06/20/22 Labs-04/30/22 NOV-none med filled 07/17/22 Please review and advise. Trini Topete LPN documented in this encounter [facility] 09-18-2022 Miscellaneous Notes Patient has been identified by name and date of : Yes Requested Prescriptions Pending Prescriptions Disp Refills lamoTRIgine (LAMICTAL) 25 mg tablet 74 tablet 0 Sig: Take 1 tablet by mouth once daily for 14 days, THEN 2 tablets once daily. RX INSTRUCTIONS: Patient aware RX will be sent to pharmacy. No need to notify patient. Follw up 10/17/2022. Dominique Jean LPN Patient has been identified by name and date of : Yes Last office visit in this department: Visit date not found RX INSTRUCTIONS: Patient aware RX will be sent to pharmacy. No need to notify patient. Patient phones requesting refills as follows: Requested Prescriptions Pending Prescriptions Disp Refills lamoTRIgine (LAMICTAL) 25 mg tablet 74 tablet 0 Sig: Take 1 tablet by mouth once daily for 14 days, THEN 2 tablets once daily. Patient is taking 50mg daily. Stated she missed her appointment yesterday and called to reschedule (next appt is 10/17), does not think she will have enough to last through. Please review and advise. Marlee Elias Pss documented in this encounter [facility] 09-16-2022 History of Presen t illness Narrative Patient did not log in or her virtual visit with the provider today. She did not answer her phone prior to and during and appointment time. documented in this encounter [facility] 08-04-2022 Instructions Montse Cat APRN.CNP - 08/04/2022 8:51 AM EDT [facility] PATIENT INFO PHARYNGITIS OVERVIEW A sore throat (pharyngitis) is a common problem, and usually is caused by a viral or bacterial infection. Sore throat usually resolves on its own without complications in adults, although it is important to know when to seek medical attention. Viruses can cause a sore throat and other upper respiratory infections, such as the common cold. Sore throat caused by a virus is not treated with antibiotics, but instead may be treated with rest, pain medication, and other therapies aimed at relieving symptoms. Strep throat is a particular kind of pharyngitis that is caused by a bacterium known as group A streptococcus (GAS). Strep throat is treated with a course of antibiotics. SORE THROAT SYMPTOMS Viral pharyngitis -- Most people with a sore throat have a virus. The most common viruses are those that cause upper respiratory infections, such as the common cold. Symptoms of a viral infection can include: A runny or congested nose Irritation or redness of the eyes Cough, hoarseness, or soreness in the roof of the mouth Some viruses cause a fever and can make you feel quite ill. Strep throat -- Approximately 10 percent of adults with a sore throat have strep throat. Signs and symptoms of strep throat include the following: Pain in the throat Fever (temperature greater than 100.4 F or 38 C) Enlarged lymph glands in the neck White patches of pus on the side or back of the throat No cough, runny nose, or irritation/redness of the eyes Other infections -- Many other less common but more serious infections can cause a sore throat, including mononucleosis (mono), influenza (the flu), N. gonococcus (gonorrhea), human immunodeficiency virus (HIV), and others. When to seek urgent help -- See your doctor or nurse immediately if you have a sore throat along with any of the following: Difficulty breathing Skin rash Drooling because you cannot swallow Swelling of the neck or tongue Stiff neck or difficulty opening the mouth SORE THROAT DIAGNOSIS Most people with a sore throat get better without treatment. There is no specific treatment for a sore throat caused by usual cold viruses. Is it strep or not? -- A combination of symptoms (fever, enlarged glands in the neck, white patches on your tonsils, and no cough) can help in determining if you have strep. If you have two or more symptoms, a rapid test or throat culture may be done. People with fewer than two symptoms usually do not need testing or treatment for strep throat. Rapid test -- The rapid test determines if there are streptococcus bacteria on a throat swab. The test can be done in a clinician's office and the results are available within a few minutes. The test is accurate in most cases, although a small percentage of tests are falsely negative (the bacteria are present but the test is negative). Throat culture -- A throat culture involves swabbing the throat, sending the swab to a laboratory, and waiting 24 to 48 hours for the results. Throat cultures are slightly more accurate than the rapid test. TREATMENT OF SORE THROAT Sore throat treatment -- Antibiotics do not help throat pain caused by a virus and are not recommended. Sore throat caused by viral infections usually lasts four to five days. During this time, treatments to reduce pain may be helpful. Several therapies can help to relieve throat pain. Pain medication -- You can treat your throat pain with a mild pain reliever such as acetaminophen (Tylenol ) or a non-steroidal anti-inflammatory agent such as ibuprofen or naproxen (Motrin or Aleve ). Oral rinses -- Salt-water gargles are an old stand-by for throat pain. It is not clear that salt water works to relieve pain, but it is unlikely to be harmful. Most recipes suggest 1/4 to 1/2 teaspoon of salt per one cup (8 ounces) of warm water. Sprays -- Sprays containing topical anesthetics (eg, benzocaine, phenol) are available to treat sore throat. However, such sprays are no more effective than sucking on hard candy. Lozenges -- A variety of lozenges (cough drops) are available to treat throat pain or relieve dryness. However, it is not clear that lozenges work any better than other forms of hard candy, which are generally less expensive. Other treatments -- Other treatments that may help with throat pain include sipping warm beverages (eg, honey or lemon tea, chicken soup), cold beverages, or eating cold or frozen desserts (eg, ice cream, popsicles). Alternative therapies -- Health food stores, vitamin outlets, and Internet Web sites offer alternative treatments for relief of sore throat pain. We do not recommend these type of treatments due to the risks of contamination with pesticides/herbicides, inaccurate labeling and dosing information, and a lack of studies showing that these treatments are safe and effective. Strep throat -- Although strep throat typically resolves on its own within two to five days, treatment with antibiotics is recommended for adults whose rapid test or throat culture is positive for strep throat. Penicillin, or an antibiotic related to penicillin, is the treatment of choice for strep throat. It is usually given in pill or liquid form two to four times per day for 10 days. A one time injection of penicillin is also available. People who are allergic to penicillin are given an alternate antibiotic. It is important to finish the entire course of treatment to completely eliminate the infection. If symptoms do not begin to improve or worsen by three days of antibiotic treatment, you should see your doctor or nurse again. Return to work/school -- If you have been diagnosed with strep throat, stay home from work or school until you have completed 24 hours of antibiotics. Within 24 hours of beginning antibiotic treatment, you will feel better and will be less contagious [1]. If you have a sore throat (not diagnosed as strep), you may participate in your usual activities as soon as you feel well. SORE THROAT PREVENTION Hand washing is an essential and highly effective way to prevent the spread of infection. Wet your hands with water and plain soap, and rub them together for 15 to 30 seconds. Pay special attention to the fingernails, between the fingers, and the wrists. Rinse your hands thoroughly, and dry them with a clean towel. Alcohol-based hand rubs are a good alternative for disinfecting hands if a sink is not available. Hand rubs should be spread over the entire surface of hands, fingers, and wrists until dry, and may be used several times. These rubs can be used repeatedly without skin irritation or loss of effectiveness. Hand rubs are available as a liquid or wipe in small, portable sizes that are easy to carry in a pocket or handbag. When a sink is available, visibly soiled hands should be washed with soap and water. Wash your hands after coughing, blowing the nose, or sneezing. While it is not always possible to avoid being near a person who is sick, avoiding touching your eyes, nose, or mouth to prevent the spread of infection. In addition, tissues should be used to cover the mouth when sneezing or coughing. These used tissues should be disposed of promptly. Sneezing/coughing into your sleeve (at the inner elbow) is another way to contain sprays of saliva and secretions and will not contaminate your hand documented in this encounter [facility] 08-04-2022 History of Presen t illness Narrative Subjective HPI Nontoxic female presents urgent care chief complaint sore throat congestion and headache. Duration of symptoms 1 day. Associated symptoms listed above. States boyfriend was sick prior to her symptoms starting similar signs and symptoms. Has not use any OTC medications today. States she did take a negative COVID-19 home test. Denies any significant pain. History of strep throat this feels similar. Denies any fever body aches chills productive cough chest pain shortness of breath pleuritic pain hemoptysis nausea vomiting abdominal pain change in bowel or bladder habits. Denies chance of is not breast-feeding. .Patient presents with: Sore Throat: Sore throat, congestion, headache x 1 day PAST MEDICAL HISTORY Diagnosis Date Chest pain Dyslexia Iron deficiency anemia PAST SURGICAL HISTORY Procedure Laterality Date 2D ECHO (EXEP) 06/29/2017 EF=55%, Mild [place] Dys, dilated RV and LA and small atrial septal defect. NONE ALLERGIES Patient has no known allergies. MEDICATIONS citalopram hydrobromide (CELEXA) 10 mg tablet Take 1 tablet by mouth once daily. Cholecalciferol, Vitamin D3, 50 mcg (2,000 unit) cap Take 1 capsule by mouth once daily. lactobacillus rhamnosus (CULTURELLE) 15 billion cell capsule Take 1 capsule by mouth once daily. FAMILY HISTORY Problem Relation Age of Onset Alcohol/Drug Mother other (acid reflux) Mother Alzheimer's Disease Maternal Grandmother other (cabg) Maternal Grandfather Asthma Sister other (heart defects) Other Heart Paternal Uncle Social History Tobacco Use Smoking status: Never Smokeless tobacco: Never Vaping Use Vaping Use: Never used Substance Use Topics Alcohol use: Yes Comment: social Drug use: Yes Types: Marijuana Comment: marijuana occasionally BP 118/68 Pulse 80 Temp 36.3 C (97.4 F) Resp 16 Wt 80.3 kg (177 lb) LMP 04/05/2022 (Exact Date) SpO2 98% BMI 29.91 kg/m Review of Systems Constitutional: Negative for chills, fever and malaise/fatigue. HENT: Positive for congestion and sore throat. Negative for ear discharge, ear pain and sinus pain. Eyes: Negative for blurred vision, pain, discharge and redness. Respiratory: Negative for cough, hemoptysis, sputum production, shortness of breath, wheezing and stridor. Cardiovascular: Negative for chest pain. Gastrointestinal: Negative for abdominal pain, diarrhea, nausea and vomiting. Musculoskeletal: Negative for myalgias. Skin: Negative for itching and rash. Neurological: Positive for headaches. Negative for dizziness. Objective Physical Exam Constitutional: General: She is not in acute distress. Appearance: She is not diaphoretic. HENT: Head: Normocephalic. Jaw: No trismus, tenderness, swelling or pain on movement. Right Ear: Tympanic membrane, ear canal and external ear normal. Left Ear: Tympanic membrane, ear canal and external ear normal. Nose: Congestion present. Mouth/Throat: Lips: [place]. Mouth: Mucous membranes are moist. Pharynx: Oropharynx is clear. Uvula midline. Posterior oropharyngeal erythema present. No pharyngeal swelling, oropharyngeal exudate or uvula swelling. Tonsils: No tonsillar exudate or tonsillar abscesses. Eyes: Conjunctiva/sclera: Conjunctivae normal. Pupils: Pupils are equal, round, and reactive to light. Cardiovascular: Rate and Rhythm: Normal rate and regular rhythm. Heart sounds: Normal heart sounds. Pulmonary: Effort: Pulmonary effort is normal. No tachypnea, accessory muscle usage or respiratory distress. Breath sounds: Normal breath sounds. No stridor. No wheezing, rhonchi or rales. Abdominal: Palpations: Abdomen is soft. Tenderness: There is no abdominal tenderness. Musculoskeletal: Cervical back: Normal range of motion and neck supple. No rigidity or tenderness. No pain with movement. Normal range of motion. Lymphadenopathy: Cervical: No cervical adenopathy. Skin: General: Skin is warm and dry. Neurological: Mental Status: She is alert and oriented to person, place, and time. ASSESSMENT/PLAN: 1. Pharyngitis, unspecified etiology - ICD9: 462, ICD10: J02.9 - STREP A MOLECULAR (POC) Strep test negative. COVID-19 test offered declined testing at this time. States did take a negative home test. We will treat conservatively at this time. Patient was educated on supportive therapies. Patient will follow up with primary care provider as needed. Patient was instructed to immediately proceed to emergency room for any new, worsening, or symptoms lasting longer than anticipated. The patient's clinical presentation is otherwise unremarkable at this time. Based on exam and clinical finding, the patient is stable for discharge. Plan of care was discussed with patient. Patient verbalizes understanding and agrees to plan of care. This note was generated using Respic[employer]ia software. It may contain errors in wording, punctuation, or spelling. Montse Cat APRN.EMILY documented in this encounter [facility] 07-17-2022 Miscellaneous Notes The following approved medication requests have been transmitted electronically. Requested Prescriptions Signed Prescriptions Disp Refills citalopram hydrobromide (CELEXA) 10 mg tablet 30 tablet 2 Sig: Take 1 tablet by mouth once daily. Adali Martin APRN.CNP Pt asking about medication refill. Rx pended for review. Dora Dailey Ma Please assist patient in scheduling with psychiatry. Krys Zaragoza APRN.CNP documented in this encounter [facility] 06-19-2022 Miscellaneous Notes Please see request for test documented in this encounter [facility] 05-02-2022 Miscellaneous Notes Patient calls and notified of results and providers instructions. Patient verbalizes understanding. Trinh Kearns RN Attempted to call patient to update her with results and recommendations of provider. Patient's VM was full and unable to leave message. Please let Jez know that I received her lab results. Her thyroid looks good, iron is good. Her vitamin D level is low. I'd like her to begin taking a daily vitamin D3 supplement; I've sent this to the pharmacy for her. No other concerns. documented in this encounter [facility] 04-30-2022 Instructions Krys Zaragoza APRN.CNP - 04/30/2022 3:51 PM EDT Get scheduled for counseling as you're planning. Have your labs completed. Schedule your thyroid ultrasound. Celexa. Take once daily. documented in this encounter [facility] 04-30-2022 History of Presen t illness Narrative Chief Complaint Patient presents with: Depression Anxiety HPI Jez Barrera is a 21 year old female who presents here today for Above Complaints. Today: Since a child has dealt with depression & anxiety. Has been in counseling in the past as well as Prozac. Working on getting in to counseling again-had stopped in 2018. Holding things in. No motivation. Overwhelmed. These sx have been going on for at least 2 years, but over the past 6 months things have really escalated. Seems like more depression than anxiety. Difficulty making decisions. Frequently changes her mind. When she makes a decision will be very rash. Doesn't feel like herself anymore. Feels like she wakes up and lives the same day over and over. Either will sleep very well or can't sleep at all. Sometimes will wake up every couple hours. No difficulty falling asleep. Never feels rested, always fatigued. Did not feel like Prozac ever really worked for her. Would like to try a different medication. No SI/HI. Past medical history, appointments, medications, allergies reviewed. Previous Medical History PAST MEDICAL HISTORY Diagnosis Date Chest pain Dyslexia Iron deficiency anemia Previous Surgical History PAST SURGICAL HISTORY Procedure Laterality Date 2D ECHO (EXEP) 06/29/2017 EF=55%, Mild [place] Dys, dilated RV and LA and small atrial septal defect. NONE Family History FAMILY HISTORY Problem Relation Age of Onset Alcohol/Drug Mother other (acid reflux) Mother Alzheimer's Disease Maternal Grandmother other (cabg) Maternal Grandfather Asthma Sister other (heart defects) Other Heart Paternal Uncle Patient Allergies ALLERGIES No Known Allergies Current Medications Current Outpatient Medications on File Prior to Visit Medication Sig lactobacillus rhamnosus (CULTURELLE) 15 billion cell capsule Take 1 capsule by mouth once daily. No current facility-administered medications on file prior to visit. Social History Social History Tobacco Use Smoking status: Never Smoker Smokeless tobacco: Never Used Vaping Use Vaping Use: Never used Substance Use Topics Alcohol use: Yes Comment: social Drug use: Yes Types: Marijuana Comment: marijuana occasionally Review of Symptoms REVIEW OF SYSTEMS See HPI, otherwise negative EXAM: BP 104/72 (BP Site: Left Arm, BP Position: Sitting, BP Cuff Size: Regular Adult) Pulse 76 Resp 16 Wt 82.1 kg (181 lb) LMP 04/05/2022 (Exact Date) SpO2 97% BMI 30.59 kg/m General Appearance: Well appearing, alert, in no acute distress, well-hydrated, well nourished.. Lungs: Lungs clear to auscultation. No wheezing, rhonchi, rales.. Heart: RRR without murmur, gallop, or rubs. No ectopy. Health Maintenance List MENINGOCOCCAL B: Consider based on risk(1 of 2 - Risk Bexsero 2-dose series) Never done HEPATITIS C SCREENING Never done HIV SCREENING Never done DTAP,TDAP,TD(7 - Td or Tdap) due on 12/30/2020 COVID-19 VACCINE(3 - Booster for Moderna series) due on 11/28/2021 GC (GONORRHEA) SCREENING (18-24) due on 03/18/2022 CHLAMYDIA SCREENING (18-24) due on 03/18/2022 INFLUENZA(Season Ended) due on 07/03/2022 DEPRESSION SCREENING due on 04/30/2023 PAP TESTING due on 12/28/2023 HPV VACCINE Completed Data reviewed Previous records, office notes ASSESSMENT/PLAN: 1. Moderate episode of recurrent major depressive disorder (HCC) - ICD9: 296.32, ICD10: F33.1 (primary diagnosis) Begin counseling/therapy Begin Celexa, follow up in 4-6 weeks. Lab work to r/o contributing factors - CITALOPRAM 10 MG TABLET - IRON + TIBC - FERRITIN BLD - TSH BLD - T3 BLD - T4 FREE/FREE THYROX - VITAMIN D 25 HYDROXY - CBC - COMP METABOLIC PANEL 2. Iron deficiency - ICD9: 280.9, ICD10: E61.1 Begin counseling/therapy Begin Celexa, follow up in 4-6 weeks. Lab work to r/o contributing factors - IRON + TIBC - FERRITIN BLD - CBC 3. Screening for thyroid disorder - ICD9: V77.0, ICD10: Z13.29 Begin counseling/therapy Begin Celexa, follow up in 4-6 weeks. Lab work to r/o contributing factors - TSH BLD - T3 BLD - T4 FREE/FREE THYROX - US THYROID/PARATHYROID 4. Encounter for vitamin deficiency screening - ICD9: V77.99, ICD10: Z13.21 Begin counseling/therapy Begin Celexa, follow up in 4-6 weeks. Lab work to r/o contributing factors - VITAMIN D 25 HYDROXY 5. Family history of thyroid disease - ICD9: V18.19, ICD10: Z83.49 Begin counseling/therapy Begin Celexa, follow up in 4-6 weeks. Lab work to r/o contributing factors - TSH BLD - T3 BLD - T4 FREE/FREE THYROX - THYROGLOBULIN AB - THYROID PEROXIDASE ANTIBODY BLOOD - US THYROID/PARATHYROID Krys Zaragoza APRN.CNP Greater than 50% of 35-minute visit spent face to face with patient in counseling and education. documented in this encounter [facility] 04-30-2022 History of Presen t illness Narrative Jez is a 21 year old who presents for an annual gynecologic exam without complaints. Menses: cycles every 25-30 days and 3-4 days of flow. Contraception: none HPV vaccine: Yes Last Pap: 01/04/2021 abnormal, [facility] HPV: 01/08/2021 positive History of abnormal pap: Yes Last mammogram: never Sexually active: Yes Patient concerns for STD exposure: No. Pain with intercourse: No Postcoital bleeding: No OB History T0 L0 SAB0 IAB0 Ectopic0 Multiple0 Live Births0 Title I Assistant History LMP: 09/02/2021, Having periods Age at Menarche: Age at First : Age at Menopause: Title I Assistant History Comments: Sexual Activity: Yes; Male; with boyfriend, using OCPs and condoms Contraception: No contraception data on record PAST MEDICAL HISTORY Diagnosis Date Chest pain Dyslexia Iron deficiency anemia PAST SURGICAL HISTORY Procedure Laterality Date 2D ECHO (EXEP) 06/29/2017 EF=55%, Mild [place] Dys, dilated RV and LA and small atrial septal defect. NONE FAMILY HISTORY Problem Relation Age of Onset Alcohol/Drug Mother other (acid reflux) Mother Alzheimer's Disease Maternal Grandmother other (cabg) Maternal Grandfather Asthma Sister other (heart defects) Other Heart Paternal Uncle SOCIAL HISTORY Social History Tobacco Use Smoking status: Never Smoker Smokeless tobacco: Never Used Vaping Use Vaping Use: Never used Substance Use Topics Alcohol use: Yes Comment: social Drug use: Yes Types: Marijuana Comment: marijuana occasionally REVIEW OF SYSTEMS Abdomen: No abdominal pain, nausea, vomiting, diarrhea, or constipation. No early satiety, indigestion, or increased flatulence. +bloating Bladder: No dysuria, gross hematuria, urinary frequency, urinary urgency, or incontinence. Breast: No breast lumps, nipple d/c, overlying skin changes, redness or skin retraction. Allergies and current medication updated:Yes EXAM: LMP 09/02/2021 GENERAL: pleasant, female in no apparent distress HEENT: Normocephalic, atraumatic, mucus membranes moist and no lesions NECK: Supple, full range of motion, no adenopathy and thyroid normal DERMATOLOGY: Normal, without lesions, non-icteric and non-hirsute BREAST: soft, non-tender, symmetric, no dominant mass, normal nipple-areolar complex, no lymphadenopathy and no nipple discharge CHEST: Normal inspiratory effort ABDOMEN: soft, non-tender and no masses PELVIC: external genitalia normal, normal Bartholin's glands, urethra, [place]'s glands, no vulvar lesions, no cervical lesions, good vaginal support, physiologic discharge present, normal appearing perineal body and perianal region BIMANUAL: uterus normal size, shape and consistency, no adnexal masses, non-tender and no cervical motion tenderness RECTOVAGINAL: deferred. NEURO: alert and oriented x3,exam grossly non-focal EXTREMITIES: normal ASSESSMENT/PLAN: 1) Health maintenance: Pap done with reflex HPV. Mammogram starting age 40. Nutrition, exercise and routine health maintenance exams reviewed. Calcium/Vitamin D supplementation information provided. HPV vaccine: completed series 2) Contraception: none. Contraceptive options reviewed and information provided. 3) STD screening: Accepted STD check for Gonorrhea and Chlamydia. 4) Follow up one year or sooner as needed Marilee Yanes APRN.CNP documented in this encounter [facility] 02-06-2022 Miscellaneous Notes Since she started back on the pill the bleeding should start to decrease over the next few days. If it doesn't decrease I can send in some Aygestin for her. Marilee Yanes APRN.CNP Patient started bleeding on on 02/04/22. Became heavier yesterday. Using regular size tampon and needing to change about every 1 hour this morning. Does need to change pad with it too, but it is not completely saturated when she does. She did start OCP 3 days ago too. No chest pain, shortness of breath or dizziness. She is feeling more fatigued. Advised to wear pads for better estimate of bleeding and heavy bleeding precautions given. Please advise. Taylor Rizo RN documented in this encounter [facility] documented as of this encounter (statuses as of 02/06/2022) [facility] History of Past illness Narrative* Problem Noted Date Resolved Date Well adolescent visit 07/10/2015 09/11/2016 documented as of this encounter (statuses as of 04/30/2022) [place] [address]-08-2015 History of Past illness Narrative* Problem Noted Date Resolved Date Well adolescent visit 07/10/2015 09/11/2016 documented as of this encounter (statuses as of 04/30/2022) [place] [address]-2015 History of Past illness Narrative* Problem Noted Date Resolved Date Well adolescent visit 07/10/2015 09/11/2016 documented as of this encounter (statuses as of 05/02/2022) [address] History of Past illness Narrative* Problem Noted Date Resolved Date Well adolescent visit 07/10/2015 09/11/2016 documented as of this encounter (statuses as of 06/19/2022) [address] History of Past illness Narrative* Problem Noted Date Resolved Date Well adolescent visit 07/10/2015 09/11/2016 documented as of this encounter (statuses as of 07/17/2022) [place] [address]08-2015 History of Past illness Narrative* Problem Noted Date Resolved Date Well adolescent visit 07/10/2015 09/11/2016 documented as of this encounter (statuses as of 08/04/2022) [place] [address]-2015 History of Past illness Narrative* Problem Noted Date Resolved Date Well adolescent visit 07/10/2015 09/11/2016 documented as of this encounter (statuses as of 09/16/2022) [address] History of Past illness Narrative* Problem Noted Date Resolved Date Well adolescent visit 07/10/2015 09/11/2016 documented as of this encounter (statuses as of 09/18/2022) [address] History of Past illness Narrative* Problem Noted Date Resolved Date Well adolescent visit 07/10/2015 09/11/2016 documented as of this encounter (statuses as of 09/29/2022) [address] History of Past illness Narrative* Problem Noted Date Resolved Date Well adolescent visit 07/10/2015 09/11/2016 documented as of this encounter (statuses as of 10/26/2022) [address] History of Past illness Narrative* Problem Noted Date Resolved Date Well adolescent visit 07/10/2015 09/11/2016 documented as of this encounter (statuses as of 11/23/2022) [address]2015 History of Past illness Narrative* Problem Noted Date Resolved Date Well adolescent visit 07/10/2015 09/11/2016 documented as of this encounter (statuses as of 02/06/2023) [address] History of Past illness Narrative* Problem Noted Date Resolved Date Well adolescent visit 07/10/2015 09/11/2016 documented as of this encounter (statuses as of 02/24/2023) [address] History of Past illness Narrative* Problem Noted Date Diagnosed Date Resolved Date Well adolescent visit 07/10/20152015 documented as of this encounter (statuses as of 06/11/2023) [address]2015 History of Past illness Narrative* Problem Noted Date Diagnosed Date Resolved Date Well adolescent visit 07/10/20152015 documented as of this encounter (statuses as of 10/14/2023) [facility] Diagnosis Encounter for gynecological examination (general) (routine) without abnormal findings- Primary Screening for cervical cancer Screening for malignant neoplasm of the cervix Screen for STD (sexually transmitted disease) Screening examination for venereal disease [facility] Diagnosis 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 Iron deficiency Iron deficiency anemia, unspecified Screening for thyroid disorder Encounter for vitamin deficiency screening Screening for other and unspecified endocrine, nutritional, metabolic, and immunity disorders Family history of thyroid disease Family history of other endocrine and metabolic diseases documented in this encounter [facility] note* Diagnosis Vitamin D deficiency- Primary Unspecified vitamin D deficiency documented in this encounter [facility] note* Diagnosis Positive test- Primary examination or test, positive result documented in this encounter [facility] note* Diagnosis 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 Adjustment disorder with depressed mood documented in this encounter [facility] note* Diagnosis Pharyngitis, unspecified etiology- Primary [facility] Diagnosis NO SHOW- Primary documented in this encounter [facility] note* Diagnosis Moderate episode of recurrent major depressive disorder (HCC) documented in this encounter [facility] note* Diagnosis Chronic post-traumatic stress disorder (PTSD)- Primary Moderate episode of recurrent major depressive disorder (HCC) Borderline personality disorder (HCC) Borderline personality disorder documented in this encounter [facility] note* Diagnosis Chronic post-traumatic stress disorder (PTSD)- Primary Borderline personality disorder (HCC) Borderline personality disorder Moderate episode of recurrent major depressive disorder (HCC) documented in this encounter [facility] note* Diagnosis Chronic post-traumatic stress disorder (PTSD)- Primary Borderline personality disorder (HCC) Borderline personality disorder Recurrent major depressive disorder, in partial remission (HCC) documented in this encounter [facility] note* Diagnosis URI, acute- Primary Acute upper respiratory infections of unspecified site documented in this encounter [facility] note* Diagnosis ETD (Eustachian tube dysfunction), bilateral- Primary documented in this encounter [facility] [place] for referral (narrative)* Diagnostic Procedure Only (Routine) - Authorized Specialty Diagnoses / Procedures Referred By Contac t Referred To Contact US IMAGING Diagnoses Screening for thyroid disorder Family history of thyroid disease Procedures US THYROID/PARATHYROID US SOFT TISSUE HEAD & NECK REAL TIME IMGE Krys Garcia APRN.MANUFACTURING DIRECTOR [address] [place] [address] Us Imaging Referral ID Status Reason Start Date Expiration Date Visits Requested Visits Authorized [id number] Authorized Auto-Generat ed Referral 04/30/2022 05/30/2023 1 1 [facility] Summary Purpose Family History No Family History Records FoundNo Family History Records FoundNo Family History Records FoundNo Family History Records FoundNo Family History Records Found Advance Directives No Advanced Directives Records FoundNo Advanced Directives Records FoundNo Advanced Directives Records FoundNo Advanced Directives Records FoundNo Advanced Directives Records Found Reason for Referral Specialty Diagnoses / Procedures Referred By Contac t Referred To Contact Diagnoses Moderate episode of recurrent major depressive disorder (HCC) Adjustment disorder with depressed mood Procedures CONSULT TO PSYCHIATRY OFFICE/OUTPATIENT [facility] 60-74 MINUTES Krys Zaragoza APRN.CNP [id number] [place] [address] Referral ID Status Reason Start Date Expiration Date Visits Requested Visits Authorized [id number] Pending Review PCP Requested Referral 07/14/2022 07/14/2023 1 1 Additional Source Comments INFORMATION SOURCE (unrecogn ized section and content) DATE CREATED AUTHOR AUTHOR'S ORGANIZ ATION 04/27/2018 [facility] DATE CREATED AUTHOR AUTHOR'S ORGANIZ ATION 05/02/2022 [facility] DATE CREATED AUTHOR AUTHOR'S ORGANIZ ATION 10/15/2023 [facility] DATE CREATED AUTHOR AUTHOR'S ORGANIZ ATION 10/23/2023 [facility] Source Comments (unrecognize d section and content) In the event this informatio n is protected by the Federal Confidentiality of Alcohol and Drug Abuse Patient Records regulations: The Federal rules restrict any use of the information to criminally investigate or prosecute any alcohol or drug abuse patient.[facility] the event this information is protected by the Federal Confidentiality of Alcohol and Drug Abuse Patient Records regulations: The Federal rules restrict any use of the information to criminally investigate or prosecute any alcohol or drug abuse patient.[facility] the event this information is protected by the Federal Confidentiality of Alcohol and Drug Abuse Patient Records regulations: The Federal rules restrict any use of the information to criminally investigate or prosecute any alcohol or drug abuse patient.[facility] the event this information is protected by the Federal Confidentiality of Alcohol and Drug Abuse Patient Records regulations: The Federal rules restrict any use of the information to criminally investigate or prosecute any alcohol or drug abuse patient.[facility] the event this information is protected by the Federal Confidentiality of Alcohol and Drug Abuse Patient Records regulations: The Federal rules restrict any use of the information to criminally investigate or prosecute any alcohol or drug abuse patient.[facility] the event this information is protected by the Federal Confidentiality of Alcohol and Drug Abuse Patient Records regulations: The Federal rules restrict any use of the information to criminally investigate or prosecute any alcohol or drug abuse patient.[facility] the event this information is protected by the Federal Confidentiality of Alcohol and Drug Abuse Patient Records regulations: The Federal rules restrict any use of the information to criminally investigate or prosecute any alcohol or drug abuse patient.[facility] the event this information is protected by the Federal Confidentiality of Alcohol and Drug Abuse Patient Records regulations: The Federal rules restrict any use of the information to criminally investigate or prosecute any alcohol or drug abuse patient.[facility] the event this information is protected by the Federal Confidentiality of Alcohol and Drug Abuse Patient Records regulations: The Federal rules restrict any use of the information to criminally investigate or prosecute any alcohol or drug abuse patient.[facility] the event this information is protected by the Federal Confidentiality of Alcohol and Drug Abuse Patient Records regulations: The Federal rules restrict any use of the information to criminally investigate or prosecute any alcohol or drug abuse patient.[facility] the event this information is protected by the Federal Confidentiality of Alcohol and Drug Abuse Patient Records regulations: The Federal rules restrict any use of the information to criminally investigate or prosecute any alcohol or drug abuse patient.[facility] the event this information is protected by the Federal Confidentiality of Alcohol and Drug Abuse Patient Records regulations: The Federal rules restrict any use of the information to criminally investigate or prosecute any alcohol or drug abuse patient.[facility] the event this information is protected by the Federal Confidentiality of Alcohol and Drug Abuse Patient Records regulations: The Federal rules restrict any use of the information to criminally investigate or prosecute any alcohol or drug abuse patient.[facility] the event this information is protected by the Federal Confidentiality of Alcohol and Drug Abuse Patient Records regulations: The Federal rules restrict any use of the information to criminally investigate or prosecute any alcohol or drug abuse patient.[facility] the event this information is protected by the Federal Confidentiality of Alcohol and Drug Abuse Patient Records regulations: The Federal rules restrict any use of the information to criminally investigate or prosecute any alcohol or drug abuse patient.[facility] the event this information is protected by the Federal Confidentiality of Alcohol and Drug Abuse Patient Records regulations: The Federal rules restrict any use of the information to criminally investigate or prosecute any alcohol or drug abuse patient.[facility] the event this information is protected by the Federal Confidentiality of Alcohol and Drug Abuse Patient Records regulations: The Federal rules restrict any use of the information to criminally investigate or prosecute any alcohol or drug abuse patient.[facility] Care Teams (unrecognized sec tion and content) Photoresist Contact Printer Relationship Specialty Start Date End Date Tono Caruso, DO [address] [facility] [address] PCP - General Family Practice 04/01/13 Photoresist Contact Printer Relationship Specialty Start Date End Date Tono Caruso, DO [address] [facility] [address] PCP - General Family Practice 04/01/13 Photoresist Contact Printer Relationship Specialty Start Date End Date Tono Caruso, DO [address] [place] [address] PCP - General Family Practice 04/01/13 Photoresist Contact Printer Relationship Specialty Start Date End Date Tono Caruso, DO [address] [facility] [address] PCP - General Family Practice 04/01/13 Photoresist Contact Printer Relationship Specialty Start Date End Date Tono Caruso, DO [address] [place] [address] PCP - General Family Practice 04/01/13 Photoresist Contact Printer Relationship Specialty Start Date End Date Tono Caruso, DO [address] [facility] [address] PCP - General Family Medicine 04/01/13 Photoresist Contact Printer Relationship Specialty Start Date End Date Tono Caruso, DO [address] [facility] [address] PCP - General Family Medicine 04/01/13 Photoresist Contact Printer Relationship Specialty Start Date End Date Tono Caruso, DO [address] [place] [address] PCP - General Family Medicine 04/01/13 Photoresist Contact Printer Relationship Specialty Start Date End Date Tono Caruso, DO [address] [place] [address] PCP - General Family Medicine 04/01/13 Photoresist Contact Printer Relationship Specialty Start Date End Date Tono Caruso, DO [address] [place] [address] PCP - General Family Medicine 04/01/13 Photoresist Contact Printer Relationship Specialty Start Date End Date Tono Caruso, DO [address] [place] [address] PCP - General Family Medicine 04/01/13 Photoresist Contact Printer Relationship Specialty Start Date End Date Tono Caruso, DO [address] [place] [address] PCP - General Family Medicine 04/01/13 Photoresist Contact Printer Relationship Specialty Start Date End Date Tono Caruso, DO [address] [place] [address] PCP - General Family Medicine 04/01/13 Photoresist Contact Printer Relationship Specialty Start Date End Date Tono Caruso, [address] [place] [address] PCP - General Family Medicine 04/01/13 Reason for Visit (unrecogniz ed section and content) Reason Comments Depression Anxiety Reason Comments Results Reason Comments Sore Throat Sore throat, congest ion, headache x 1 day Reason Comments No Show Reason Onset Date Comments Refill Request 09/17/2022 Reason Onset Date Comments Refill Request 09/29/2022 Reason Comments Follow Up Reason Onset Date Comments Refill Request 02/05/2023 Reason Comments Headache CHOU, sinus, congestio n and dizzy x 1 day Reason Comments Ear Pain bilateral ears x 2 w eeks <item> Privacy Markings (unrecogniz ed section and content) Section Author: Alisia Banerjee PROHIBITION ON REDISCLOSURE OF CONFIDENTIAL INFORMATION This notice accompanies a disclosure of information concerning a client made to you with the consent of such client. FOR RECORDS PERTAINING TO PATIENTS WHO ARE OR HAVE BEEN ENROLLED IN A CHEMICAL DEPENDENCY/SUBSTANCEABUSE PROGRAM, SOME INFORMATION MAY BE OMITTED. This clinical summary was aggregated from multiple sources. Caution should be exercised in using it in the provision of clinical care. This summary normalizes information from multiple sources, and as a consequence, information in this document may materially change the coding, format and clinical context of patient data. In addition, data may be omitted in some cases. CLINICAL DECISIONS SHOULD BE BASED ON THE PRIMARY CLINICAL RECORDS. [facility]. provides no warranty or guarantee of the accuracy or completeness of information in this document.
[2023-11-13 16:17] LABS: Group B Strep DNA By PCR Negative (Negative); Internal Control PASS; Probe Check PASS; Specimen Processing Control PASS
== END | disposition home or self-care (01) ==
LOC: LABSPEC 14:06
PROVIDERS: PCP Student in an Organized Health Care Education/Training Program; Referring Provider Advanced Practice Midwife; Visit Provider Advanced Practice Midwife
DX: Z34.90 Encounter for supervision of normal pregnancy, unspecified, unspecified trimester (principal); Z3A.00 Weeks of gestation of pregnancy not specified
CPT/HCPCS: 87081; 87653

== ENCOUNTER 2023-12-05 17:45 | Outpatient (CLI) | payer BC, MEDICAID, SELFPAY ==
--- OUTSIDE RECORDS SUMMARY | 2023-12-05 17:52 | XMS RPT_ITS | CCD ---
Author Name Unknown Address [address] [place] [address] Organization [facility] Care Team Providers Care Traffic Warehouse Supervisor Name Role Phone EDGARD CALL Unavailable Unavailable [...] Care Unavailable TONO CARUSO Primary Care Unavailable JAEN ULLOA Attending Unavailable TONO CARUSO Primary Care Unavailable FOSTER DICKERSON Referring Unavailab FOSTER Mtz Attending Unavailab MONTSE Gutiérrez Primary Care Unavailable SHELYL LANDERS Attending Unavailable FOSTER DICKERSON Referring Unavailab MONTSE Gutiérrez Primary Care Unavailable ODALYS JAY Referring UnavailAARON Dubon Attending Unavailable MONTSE VOGEL Primary Care Unavailable ODALYS JAY Referring Unavailabl AARON Schrader Attending Unavailable MONTSE VOGEL Primary Care Unavailable ODALYS JAY Referring Unavailabl e AARON GOLDSTEIN Attending Unavailable MONTSE VOGEL Primary Care Unavailable Medications Current Medications Medication Drug Class(es) Dates Sig (Normalized) Sig (Original) [id number] 200 actuat albuterol 0.09 mg/actuat metered dose [...] 12:22-0500 Body temperature 97.81 [degF] Javier العلي WINDOW FRAMER.DRILLER OPERATOR Work Phone: [facility] 10-13-2023 12:22-0500 Body weight 81.65 kg Javier العلي WINDOW FRAMER.DRILLER OPERATOR Work Phone: [facility] 10-13-2023 12:22-0500 Diastolic blood pressure 86 mm[Hg] Javier العيل WINDOW FRAMER.DRILLER OPERATOR Work Phone: [facility] 10-13-2023 12:22-0500 Heart rate 86 /min Javier العلي WINDOW FRAMER.DRILLER OPERATOR Work Phone: [facility] 10-13-2023 12:22-0500 Respiratory rate 18 /min Javier العلي WINDOW FRAMER.DRILLER OPERATOR Work Phone: [facility] 10-13-2023 12:22-0500 SaO2% (BldA) [Mass fraction] 99 % Javier العلي WINDOW FRAMER.DRILLER OPERATOR Work Phone: [facility] 10-13-2023 12:22-0500 Systolic blood pressure 138 mm[Hg] Javier العلي WINDOW FRAMER.DRILLER OPERATOR Work Phone: [facility] 06-11-2023 13:43-0400 Body temperature 98.29 [degF] Chrissie Gongora PA Work Phone: [facility] 06-11-2023 13:43-0400 Body weight 72.58 kg Chrissie Gongora PA Work Phone: [facility] 06-11-2023 13:43-0400 Diastolic blood pressure 80 mm[Hg] Krislyn Abyosvany PA Work Phone: [facility] 06-11-2023 13:43-0400 Heart rate 70 /min Krislyn Aberegg PA Work Phone: [facility] 06-11-2023 13:43-0400 Respiratory rate 18 /min Krislyn Aberegg PA Work Phone: [facility] 06-11-2023 13:43-0400 SaO2% (BldA) [Mass fraction] 100 % Krislyn Aberegg PA Work Phone: [facility] 06-11-2023 13:43-0400 Systolic blood pressure 116 mm[Hg] Krislyn Aberegg PA Work Phone: [facility] 08-04-2022 08:21-0400 Body temperature 97.39 [degF] [facility] WINDOW FRAMER.DRILLER OPERATOR Work Phone: [facility] 08-04-2022 08:21-0400 Body weight 80.29 kg Montse Pendlekoffi WINDOW FRAMER.DRILLER OPERATOR Work Phone: [facility] 08-04-2022 08:21-0400 Diastolic blood pressure 68 mm[Hg] Montse Pendlebury WINDOW FRAMER.DRILLER OPERATOR Work Phone: [facility] 08-04-2022 08:21-0400 Heart rate 80 /min Montse Pendlebury WINDOW FRAMER.DRILLER OPERATOR Work Phone: [facility] 08-04-2022 08:21-0400 Respiratory rate 16 /min Montse Pendlebury WINDOW FRAMER.DRILLER OPERATOR Work Phone: [facility] 08-04-2022 08:21-0400 SaO2% (BldA) [Mass fraction] 98 % Montse Pendlebury WINDOW FRAMER.DRILLER OPERATOR Work Phone: [facility] 08-04-2022 08:21-0400 Systolic blood pressure 118 mm[Hg] Montse Pendlebury WINDOW FRAMER.DRILLER OPERATOR Work Phone: [facility] 05-01-2022 13:58-0400 Body height 165.1 cm Tono Caruso Other Phone: [facility] 05-01-2022 13:58-0400 Body temperature 97.34 [degF] Tono Caruso Other Phone: [facility] 05-01-2022 13:58-0400 Diastolic blood pressure 74 mm[Hg] Tono Caruso Other Phone: [facility] 05-01-2022 13:58-0400 Heart rate 98 /min Tono Caruso Other Phone: [facility] 05-01-2022 13:58-0400 Respiratory rate 16 /min Tono Caruso Other Phone: [facility] 05-01-2022 13:58-0400 SaO2% (BldA) [Mass fraction] 100 % Tono Caruso Other Phone: [facility] 05-01-2022 13:58-0400 Systolic blood pressure 131 mm[Hg] Tono Caruso Other Phone: [facility] 04-30-2022 15:30-0400 Body weight 82.1 kg Krys Nik WINDOW FRAMER.DRILLER OPERATOR Work Phone: [facility] 04-30-2022 15:30-0400 Diastolic blood pressure 72 mm[Hg] Krys Nik WINDOW FRAMER.DRILLER OPERATOR Work Phone: [facility] 04-30-2022 15:30-0400 Heart rate 76 /min Krys Nik WINDOW FRAMER.DRILLER OPERATOR Work Phone: [facility] 04-30-2022 15:30-0400 Respiratory rate 16 /min Krys Nik WINDOW FRAMER.DRILLER OPERATOR Work Phone: [facility] 04-30-2022 15:30-0400 SaO2% (BldA) [Mass fraction] 97 % Krys Nik WINDOW FRAMER.DRILLER OPERATOR Work Phone: [facility] 04-30-2022 15:30-0400 Systolic blood pressure 104 mm[Hg] Krys Zaragoza WINDOW FRAMER.DRILLER OPERATOR Work Phone: [facility] 04-30-2022 14:45-0400 Body height 163.8 cm Marileetemitope DoeFarzana WINDOW FRAMER.DRILLER OPERATOR Work Phone: [facility] 04-30-2022 14:45-0400 Body weight 81.65 kg Marilee Doecalf WINDOW FRAMER.DRILLER OPERATOR Work Phone: [facility] 04-30-2022 14:45-0400 Diastolic blood pressure 68 mm[Hg] Marilee Naponee WINDOW FRAMER.DRILLER OPERATOR Work Phone: [facility] 04-30-2022 14:45-0400 Systolic blood pressure 112 mm[Hg] Marilee Farzana WINDOW FRAMER.DRILLER OPERATOR Work Phone: [facility] Encounters Encounter Date Encounter Type Care Provider Facility Start: 11-17-2023 End: 11-17-2023 ambulatory [facility] Start: 10-20-2023 End: 10-20-2023 ambulatory ODALYS [facility] Start: 10-13-2023 End: 10-13-2023 ambulatory TONO CARUSO Facility:[facility] Start: 10-13-2023 End: 10-13-2023 Patient encounter procedure Javier العلي APRN.DRILLER OPERATOR Work Phone: [facility] Procedures Date Procedure Procedure Detail Performing Clinician Start: 02-23-2023 Follow-up visit Follow Up JANE ULLOA Start: 08-04-2022 STREP A MOLECULAR (POC) Montse Cat WINDOW FRAMER.DRILLER OPERATOR Work Phone: Start: 06-19-2022 Adult depression screening assessment Krys Zaragoza WINDOW FRAMER.DRILLER OPERATOR Work Phone: Start: 04-30-2022 Adult depression screening assessment Marilee Farzana WINDOW FRAMER.DRILLER OPERATOR Work Phone: Start: 12-06-2018 Adult depression screening assessment Marilee Farzana WINDOW FRAMER.DRILLER OPERATOR Work Phone: Plan of Treatment Date Care Activity Detail Author Start: 04-30-2025 PAP TESTING PAP TESTING [facility] Start: 04-30-2025 Screening for malignant neoplasm of cervix Pap Testing [facility] Start: 12-28-2023 PAP TESTING PAP TESTING [facility] Start: 07-03-2023 Covid-19 Vaccine ( season) Covid-19 Vaccine ( season) [facility] Start: 07-03-2023 Influenza vaccination [facility] Start: 06-19-2023 Adult depression screening assessment DEPRESSION SCREENING [facility] Start: 04-30-2023 Adult depression screening assessment DEPRESSION SCREENING [facility] Start: 04-30-2023 CHLAMYDIA SCREENING () CHLAMYDIA SCREENING () [facility] Start: 04-30-2023 GC (GONORRHEA) SCREENING () GC (GONORRHEA) SCREENING () [facility] Start: 07-03-2022 Influenza vaccination [facility] Start: 06-19-2022 End: 08-19-2022 Choriogonadotropin.beta subunit [Units/volume] in Serum or Plasma HCG QUANTITATIVE Lab Routine Positive test Expected: 06/19/2022, Expires: 08/19/2022 [facility] Work Phone: Immunizations Immunization Date Immunization Notes Care Provider Angella gallo 12-01-2018 influenza virus vacc ine, unspecified formulation Javier العلي WINDOW FRAMER.DRILLER OPERATOR Work Phone: [facility] 12-05-2014 meningococcal polysaccharide (groups A, C, Y and W-135) diphtheria toxoid conjugate vaccine (MCV4P) Marilee Doecalf WINDOW FRAMER.DRILLER OPERATOR Work Phone: [facility] Work Phone: 01-31-2013 varicella virus vaccine Jameson Yanes WINDOW FRAMER.DRILLER OPERATOR Work Phone: [facility] Work Phone: 08-29-2011 human papilloma viru s vaccine, quadrivalent Marilee Naponee WINDOW FRAMER.DRILLER OPERATOR Work Phone: [facility] Work Phone: 04-24-2011 human papilloma viru s vaccine, quadrivalent Marilee Naponee WINDOW FRAMER.DRILLER OPERATOR Work Phone: [facility] Work Phone: 12-30-2010 human papilloma viru s vaccine, quadrivalent Marilee Farzana WINDOW FRAMER.DRILLER OPERATOR Work Phone: [facility] 12-30-2010 Meningococcal, MCV4, unspecified conjugate formulation(groups A, C, Y and W-135) Marilee Farzana WINDOW FRAMER.DRILLER OPERATOR Work Phone: [facility] 12-30-2010 tetanus toxoid, redu jaida diphtheria toxoid, and acellular pertussis vaccine, adsorbed Marilee Naponee WINDOW FRAMER.DRILLER OPERATOR Work Phone: [facility] 12-30-2010 varicella virus vaccine Jameson e Farzana WINDOW FRAMER.DRILLER OPERATOR Work Phone: [facility] 06-24-2004 diphtheria, tetanus toxoids and acellular pertussis vaccine Marilee Naponee WINDOW FRAMER.DRILLER OPERATOR Work Phone: [facility] Work Phone: 12-10-2001 diphtheria, tetanus toxoids and acellular pertussis vaccine Marilee Naponee WINDOW FRAMER.DRILLER OPERATOR Work Phone: [facility] Work Phone: 06-24-2001 measles, mumps and rubella virus vaccine Marilee Farzana WINDOW FRAMER.DRILLER OPERATOR Work Phone: [facility] Work Phone: 06-24-2001 poliovirus vaccine, inactivated Marilee Farzana WINDOW FRAMER.DRILLER OPERATOR Work Phone: [facility] Work Phone: 12-25-1999 measles, mumps and rubella virus vaccine Marilee Farzana WINDOW FRAMER.DRILLER OPERATOR Work Phone: [facility] Work Phone: 12-25-1999 poliovirus vaccine, inactivated Marilee Naponee WINDOW FRAMER.DRILLER OPERATOR Work Phone: [facility] Work Phone: 08-21-1999 hepatitis B vaccine, pediatric or pediatric/adolescent dosage Marilee Farzana WINDOW FRAMER.DRILLER OPERATOR Work Phone: [facility] Work Phone: 06-05-1999 diphtheria, tetanus toxoids and acellular pertussis vaccine Marilee Farzana WINDOW FRAMER.[facility] Work Phone: [facility] Work Phone: 06-05-1999 haemophilus influenz ae type b vaccine, conjugate unspecified formulation Marilee Naponee WINDOW FRAMER.[facility] Work Phone: [facility] Work Phone: 04-18-1999 diphtheria, tetanus toxoids and acellular pertussis vaccine Marilee Farzana WINDOW FRAMER.[facility] Work Phone: [facility] Work Phone: 04-18-1999 haemophilus influenz ae type b vaccine, conjugate unspecified formulation Marilee Naponee WINDOW FRAMER.[facility] Work Phone: [facility] Work Phone: 04-18-1999 poliovirus vaccine, inactivated Marilee Naponee WINDOW FRAMER.[facility] Work Phone: [facility] Work Phone: 04-18-1999 rotavirus, live, pentavalent vaccine Marilee Naponee WINDOW FRAMER.[facility] Work Phone: [facility] Work Phone: 02-07-1999 diphtheria, tetanus toxoids and acellular pertussis vaccine Marilee Naponee WINDOW FRAMER.[facility] Work Phone: [facility] Work Phone: 02-07-1999 haemophilus influenz ae type b vaccine, conjugate unspecified formulation Marilee Naponee WINDOW FRAMER.[facility] Work Phone: [facility] Work Phone: 02-07-1999 poliovirus vaccine, inactivated Marilee Naponee WINDOW FRAMER.[facility] Work Phone: [facility] Work Phone: 02-07-1999 rotavirus, live, pentavalent vaccine Marilee Naponee WINDOW FRAMER.DRILLER OPERATOR Work Phone: [facility] Work Phone: 1998 hepatitis B vaccine, pediatric or pediatric/adolescent dosage Marilee Farzana WINDOW FRAMER.DRILLER OPERATOR Work Phone: [facility] Work Phone: 1998 hepatitis B vaccine, pediatric or pediatric/adolescent dosage Marilee Farzana WINDOW FRAMER.DRILLER OPERATOR Work Phone: [facility] Work Phone: Payers Date Payer Category Payer Medicaid [employer] [id number] 2023-Present [phone] [address] [place] [address] Medicaid [id number] 2023 Medicaid [id number] 2022 Unknown 2022 Unknown [id number] 2022 Private Health Insurance [facility] [employer] PPO [id number] 2022-Present [phone] [address] [address] [place] [address] PPO [id number] 2022 Private Health Insurance [facility] [employer] PPO [id number] 2022-Present [phone] [address] [address] [place] [address] PPO [id number] 2019 Unknown MMO MMO [employer] [id number] 2019-Present [phone] [address] [place] [address] PPO [id number] 1998 Unknown [id number] 1998 Unknown [id number] 1971 Unknown [id number] 1971 Unknown [id number] 1971 Unknown [id number] Unknown [id number] Social History Date Type Detail Facility Start: 08-26-2017 End: 06-20-2022 Tobacco smoking status NHIS Never smoked tobacco [facility] Start: 12-24-2021 End: 10-13-2023 Alcohol intake Current drinker of alcohol (finding) [facility] Start: 08-26-2017 History SDOH Alcohol Comment social [facility] Start: 12-28-2020 History SDOH Social Connections Phone 5 [facility] Start: 12-28-2020 History SDOH Social Connections Synagogue 1 [facility] Start: 12-28-2020 History SDOH Social Connections Membership 2 [facility] Start: 12-28-2020 History SDOH Social Connections Living 7 [facility] Start: 12-28-2020 History SDOH Physical Activity MPS 6 [facility] Start: 12-28-2020 Education 13 [facility] Start: 2000 Sex Assigned At Not on file [facility] Start: 04-19-2022 End: 08-04-2022 Exposure to SARS-CoV-2 (event) Not sure [facility] Work Phone: Tobacco smoking consumption unknown [facility] Start: 08-26-2017 End: 06-20-2022 Tobacco use and exposure Smokeless tobacco non-user [facility] Start: 12-28-2020 End: 02-23-2023 History of Social function [facility] Work Phone: Start: 12-28-2020 End: 02-23-2023 Social connection and isolation panel [facility] Work Phone: Do you belong to any clubs or organizations such as jehovah's witness groups, unions, fraternal or athletic groups, or school groups? No [facility] Work Phone: Are you now , , , , never or living with a partner? Never [facility] Work Phone: Adult Depression Screening Assessment 3 [facility] Do you feel stress - tense, restless, nervous, or anxious, or unable to sleep at night because your mind is troubled all the time - these days [OSQ] Only a little [facility] Work Phone: Clinical Notes 07-10-2015 to 10-13-2023 Javier العلي APRN.DRILLER OPERATOR - 10/13/2023 1:58 PM Chrissie Rocha, PA - 06/11/2023 1:53 PM EDTPatient InstructionsPatient InstructionsJane Ulloa APRN.CNP - 02/23/2023 4:10 PM EDT Note Date & Type Note Facility 10-13-2023 Note HNO ID: [id number] Author: Javier العلي APRN.DRILLER OPERATOR Service: ? Author Type: Nurse Practitioner Type: [...] ICD10: H69.93 Try fluticasone and cetirizine Notify burrer machine of medication F/u for continued/worsening s/s. - FLUTICASONE PROPIONATE 50 MCG/ACTUATION NASAL SPRAY,SUSPENSION - CETIRIZINE 10 MG TABLET Javier العلي APRN.[facility] 10-13-2023 History of Presen t illness Narrative [...] ICD10: H69.93 Try fluticasone and cetirizine Notify burrer machine of medication F/u for continued/worsening s/s. - FLUTICASONE PROPIONATE 50 MCG/ACTUATION NASAL SPRAY,SUSPENSION - CETIRIZINE 10 MG TABLET Javier العلي APRN.DRILLER OPERATOR documented in this encounter [facility] 09-01-2023 Note HNO ID: [id number] Author: Daisy Chavez APRN.DRILLER OPERATOR Service: ? Author Type: Nurse Practitioner Type: [...] - Discussed expected course of illness Daisy Cahvez APRN.[facility] 06-11-2023 Note HNO ID: [id number] Author: Chrissie Gongora PA Service: ? Author Type: Physician Production Generalist Type: Progress Notes Filed: 06/11/2023 1:56 PM Note Text: This note was created using [employer]. Subjective Jez Barrera is a 22 year [...] illness Narrative This note was created using [employer]. Subjective Jez Barrera is a 22 year [...] evaluation. MAMADOU Perla documented in this encounter [facility] 06-11-2023 Instructions Chrissie Gongora PA - 06/11/2023 [...] medication or giving medication to your child. Qtci-rsj-qenolnr cold medications may relieve the symptoms of [...] or stomach pain. documented in this encounter [facility] 02-23-2023 Note HNO ID: [id number] Author: Jane Ulloa APRN.DRILLER OPERATOR Service: ? Author Type: Nurse Practitioner Type: [...] Continue individual psychotherapy. Send an update via Mychart regarding the increase in Lamictal. Follow up [...] visit. Either the patient or their legal small business sales representative has been informed of the [...] Lamictal. She has been working as a [employer]. She is enjoying her job and her [...] Scale (JHONNY-7) JHONNY - 7 SCORES 10/17/2022 11/15/202202/23/2023 JHONNY-7 Score 6 8 4 (0-4) minimal [...] which included preparing to see the patient, jejr-ow-xyed (more content not included)... [facility] 02-23-2023 Instructions Jane Ulloa APRN.[facility] - 02/23/2023 4:25 PM EDT Mich Pearson, [...] - Call the National Suicide Hotline at 3-352-FXDEHYS ( ) or 5-883-174-TALK (6576) - Text 4HOPE to 874731 Medication Update: Lamictal 100 mg - take 1 tablet once daily. 2. Continue Prozac at the same dose. Next appointment: --Schedule in July or sooner if needed -- You may call the department appointment line at [phone] to schedule your appointment. -- Please call my nurse Dominique at [phone] or send me a message in Support Your App with any questions or concerns between appointments. documented in this encounter [facility] 02-23-2023 History of Presen t illness Narrative [...] Continue individual psychotherapy. Send an update via [employer] regarding the increase in Lamictal. Follow up [...] visit. Either the patient or their legal small business sales representative has been informed of the [...] Lamictal. She has been working as a [employer]. She is enjoying her job and her [...] which included preparing to see the patient, zbvj-nr-lbgu patient care, completing clinical documentation, and counseling and educating the patient/family/caregiver, ordering medications/labs. Jane Ulloa APRN.[facility] February 23, 2023 4:10 PM This note was partially generated using [employer] voice recognition system. Note was reviewed for accuracy. There may be minor misspellings or grammar miscues with [employer] voice recognition. documented in this encounter [facility] 02-06-2023 Miscellaneous Notes Message to call office to schedule FU. Patient should schedule a follow up appointment. Refills will be provided after. documented in this encounter [facility] 02-03-2023 Note HNO ID: [id number] Author: MAMADOU Perla Service: ? Author Type: Physician Production Generalist Type: Progress Notes Filed: 02/03/2023 11:05 AM Note Text: This note was created using [employer]. Subjective Jez Barrera is a 22 year [...] No fevers. She does work in a penitentiary. No vomiting or diarrhea. No chest pain [...] [facility] 11-17-2022 Note HNO ID: [id number] Author: Jane Ulloa APRN.DRILLER OPERATOR Service: ? Author Type: Nurse Practitioner Type: [...] she had a rash and stopped Lamictal. [place] worse being off the Lamictal. 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 She is excited about the [...] which included preparing to see the patient, qovn-qx-begk patient care, completing clinical documentation, and counseling [...] - Call the National Suicide Hotline at 9-027-IXABHND ( ) or 3-761-652-TALK (0309) - Text 4HOPE to 803599 Medication Update: Lamictal 25 mg - take 3 tablets once daily. Prozac 10 mg - take 1 capsule once daily for 7 days, then take 2 capsules once daily after that. Next appointment: --Schedule in 4 to 6 weeks or sooner if needed -- You may call the department appointment line at [phone] to schedule your appointment. -- Please call my nurse Dominique at [phone] or send me a message in Support Your App with any questions or concerns between appointments. documented in this encounter [facility] 11-17-2022 History of Presen t illness Narrative [...] she had a rash and stopped Lamictal. [place] worse being off the Lamictal. 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 She is excited about the [...] which included preparing to see the patient, dyjn-zs-kwyt patient care, completing clinical documentation, and counseling and educating the patient/family/caregiver, ordering medications/labs. Jane Ulloa APRN.CNP November 17, 2022 11:19 AM This note was partially generated using [employer] voice recognition system. Note was reviewed for accuracy. There may be minor misspellings or grammar miscues with [employer] voice recognition. documented in this encounter [facility] 10-17-2022 Note HNO ID: [id number] Author: Jane Ulloa APRN.CNP Service: ? Author Type: Nurse Practitioner Type: [...] to be starting with a therapist in [facility]. She has noticed Lamictal helping with her [...] a message or call. Best, Jane Ulloa APRN.DRILLER OPERATOR PLAN AND FOLLOW UP: YOU SHOULD SEEK [...] - Call the National Suicide Hotline at 9-856-XJCHTIB ( ) or 9-656-217-TALK (8901) - Text 4HVKB to 626933 Medication Update: Stop Celexa. Start Zoloft (Sertraline) 50 mg - take 1 tablet once daily. Increase Lamictal to 100 mg - take 1 tablet once daily. Next appointment: --Schedule in 4 weeks or sooner if needed -- You may call the department appointment line at [phone] to schedule your appointment. -- Please call my nurse Dominique at [phone] or send me a message in Support Your App with any questions or concerns between appointments. documented in this encounter [facility] 10-17-2022 History of Presen t illness Narrative [...] to be starting with a therapist in [facility]. She has noticed Lamictal helping with her [...] which included preparing to see the patient, [id number] patient care, completing clinical documentation, and counseling and educating the patient/family/caregiver, ordering medications/labs. Jane Ulloa APRN.DRILLER OPERATOR October 17, 2022 10:40 AM This note was partially generated using [employer] voice recognition system. Note was reviewed for accuracy. There may be minor misspellings or grammar miscues with [employer] voice recognition. documented in this encounter [facility] 09-29-2022 Miscellaneous Notes Patient phones requesting refills as follows: Requested Prescriptions Pending Prescriptions Disp Refills citalopram hydrobromide (CELEXA) 10 mg tablet 30 tablet 2 Sig: Take 1 tablet by mouth once daily. LUPE-06/20/22 Labs-04/30/22 NOV-none med filled 07/17/22 Please review and advise. Trini Topete LPN documented in this encounter [facility] 09-18-2022 Miscellaneous Notes Patient has been identified by name and date of : Yes Requested Prescriptions Pending Prescriptions Disp Refills lamoTRIgine (LAMICTAL) 25 mg tablet 74 tablet 0 Sig: Take 1 tablet by mouth once daily for 14 days, THEN 2 tablets once daily. RX INSTRUCTIONS: Patient aware RX will be sent to pharmacy. No need to notify patient. [place] up 10/17/2022. Dominique Jean LPN Patient has [...] Marlee Elias Pss documented in this encounter [facility] 09-16-2022 History of Presen t illness Narrative Patient did not log in or her virtual visit with the provider today. She did not answer her phone prior to and during and appointment time. documented in this encounter [facility] 08-04-2022 Instructions Montse Cat APRN.EMILY - 08/04/2022 8:51 AM EDT [facility] [...] contaminate your hand documented in this encounter [facility] 08-04-2022 History of Presen t illness Narrative [...] ear normal. Nose: Congestion present. Mouth/Throat: Lips: [place]. Mouth: Mucous membranes are moist. Pharynx: Oropharynx [...] of care. This note was generated using [employer] software. It may contain errors in wording, punctuation, or spelling. Montse Cat APRN.EMILY documented in this encounter [facility] 07-17-2022 Miscellaneous Notes The following approved medication [...] Krys Zaragoza APRN.CNP documented in this encounter [facility] 06-19-2022 Miscellaneous Notes Please see request for test documented in this encounter [facility] 05-02-2022 Miscellaneous Notes Patient calls and notified [...] No other concerns. documented in this encounter [facility] 04-30-2022 Instructions Krys Zaragoza APRN.CNP - 04/30/2022 3:51 PM EDT Get scheduled for counseling as you're planning. Have your labs completed. Schedule your thyroid ultrasound. Celexa. Take once daily. documented in this encounter [facility] 04-30-2022 History of Presen t illness Narrative [...] ANTIBODY BLOOD - US THYROID/PARATHYROID Krys Zaragoza APRN.EMILY Greater than 50% of 35-minute visit spent face to face with patient in counseling and education. documented in this encounter [facility] 04-30-2022 History of Presen t illness Narrative [...] L0 SAB0 IAB0 Ectopic0 Multiple0 Live Births0 Direct Chill Caster History LMP: 09/02/2021, Having periods Age at Menarche: Age at First : Age at Menopause: Direct Chill Caster History Comments: Sexual Activity: Yes; Male; with [...] external genitalia normal, normal [place]'s glands, urethra, [place]'s glands, no vulvar lesions, no cervical lesions, [...] year or sooner as needed Marilee Yanes APRN.EMILY documented in this encounter [facility] 02-06-2022 Miscellaneous Notes Since she started back [...] Taylor Rizo RN documented in this encounter [facility] documented as of this encounter (statuses as of 02/06/2022) [facility] History of Past illness Narrative* Problem Noted Date Resolved Date Well adolescent visit 07/10/2015 09/11/2016 documented as of this encounter (statuses as of 04/30/2022) [facility] History of Past illness Narrative* Problem Noted Date Resolved Date Well adolescent visit 07/10/2015 09/11/2016 documented as of this encounter (statuses as of 04/30/2022) [facility] History of Past illness Narrative* Problem Noted Date Resolved Date Well adolescent visit 07/10/2015 09/11/2016 documented as of this encounter (statuses as of 05/02/2022) [facility] History of Past illness Narrative* Problem Noted Date Resolved Date Well adolescent visit 07/10/2015 09/11/2016 documented as of this encounter (statuses as of 06/19/2022) [facility] History of Past illness Narrative* Problem Noted Date Resolved Date Well adolescent visit 07/10/2015 09/11/2016 documented as of this encounter (statuses as of 07/17/2022) [facility] History of Past illness Narrative* Problem Noted Date Resolved Date Well adolescent visit 07/10/2015 09/11/2016 documented as of this encounter (statuses as of 08/04/2022) [address]2015 History of Past illness Narrative* Problem Noted Date Resolved Date Well adolescent visit 07/10/2015 09/11/2016 documented as of this encounter (statuses as of 09/16/2022) [address] History of Past illness Narrative* Problem Noted Date Resolved Date Well adolescent visit 07/10/2015 09/11/2016 documented as of this encounter (statuses as of 09/18/2022) [address] History of Past illness Narrative* Problem Noted Date Resolved Date Well adolescent visit 07/10/2015 09/11/2016 documented as of this encounter (statuses as of 09/29/2022) [address] History of Past illness Narrative* Problem Noted Date Resolved Date Well adolescent visit 07/10/2015 09/11/2016 documented as of this encounter (statuses as of 10/26/2022) [address] History of Past illness Narrative* Problem Noted Date Resolved Date Well adolescent visit 07/10/2015 09/11/2016 documented as of this encounter (statuses as of 11/23/2022) [address] History of Past illness Narrative* Problem Noted Date Resolved Date Well adolescent visit 07/10/2015 09/11/2016 documented as of this encounter (statuses as of 02/06/2023) [address] History of Past illness Narrative* Problem Noted Date Resolved Date Well adolescent visit 07/10/2015 09/11/2016 documented as of this encounter (statuses as of 02/24/2023) [address] History of Past illness Narrative* Problem Noted Date Diagnosed Date Resolved Date Well adolescent visit 07/10/20152015 documented as of this encounter (statuses as of 06/11/2023) [address] History of Past illness Narrative* Problem Noted Date Diagnosed Date Resolved Date Well adolescent visit 07/10/20152015 documented as of this encounter (statuses as of 10/14/2023) [facility] [place] note* Diagnosis Encounter for gynecological examination (general) (routine) without abnormal findings- Primary Screening for cervical cancer Screening for malignant neoplasm of the cervix Screen for STD (sexually transmitted disease) Screening examination for venereal disease [facility] Diagnosis 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 Iron deficiency Iron deficiency anemia, unspecified Screening for thyroid disorder Encounter for vitamin deficiency screening Screening for other and unspecified endocrine, nutritional, metabolic, and immunity disorders Family history of thyroid disease Family history of other endocrine and metabolic diseases [facility] [place] [facility]* Diagnosis Vitamin D deficiency- Primary Unspecified vitamin D deficiency [facility] Diagnosis Positive test- Primary examination or test, positive result documented in this encounter [facility] note* Diagnosis 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 Adjustment disorder with depressed mood [facility] [place] [facility]* Diagnosis Pharyngitis, unspecified etiology- Primary [facility] Diagnosis NO SHOW- Primary [facility] Diagnosis Moderate episode of recurrent major depressive disorder (HCC) [facility] Diagnosis Chronic post-traumatic stress disorder (PTSD)- Primary Moderate episode of recurrent major depressive disorder (HCC) Borderline personality disorder (HCC) Borderline personality disorder [facility] Diagnosis Chronic post-traumatic stress disorder (PTSD)- Primary Borderline personality disorder (HCC) Borderline personality disorder Moderate episode of recurrent major depressive disorder (HCC) [facility] Diagnosis Chronic post-traumatic stress disorder (PTSD)- Primary Borderline personality disorder (HCC) Borderline personality disorder Recurrent major depressive disorder, in partial remission (HCC) [facility] Diagnosis URI, acute- Primary Acute upper respiratory infections of unspecified site [facility] Diagnosis ETD (Eustachian tube dysfunction), bilateral- Primary documented in this encounter [facility] for referral (narrative)* Diagnostic Procedure Only (Routine) - Authorized Specialty Diagnoses / Procedures Referred By Contac t Referred To Contact US IMAGING Diagnoses Screening for thyroid disorder Family history of thyroid disease Procedures US THYROID/PARATHYROID US SOFT TISSUE HEAD & NECK REAL TIME IMGE DOCM Krys Zaragoza APRN.CNP [address] [place] [address] Us Imaging Referral ID Status Reason Start Date Expiration Date Visits Requested Visits Authorized [id number] Authorized Auto-Generat ed Referral 04/30/2022 05/30/2023 1 1 [facility] Summary Purpose Family History No Family History Records FoundNo Family History Records FoundNo Family History Records FoundNo Family History Records FoundNo Family History Records Found Advance Directives No Advanced Directives Records FoundNo Advanced Directives Records FoundNo Advanced Directives Records FoundNo Advanced Directives Records FoundNo Advanced Directives Records Found Reason for Referral Specialty Diagnoses / Procedures Referred By Seferino malin Referred To Contact Diagnoses Moderate episode of recurrent major depressive disorder (HCC) Adjustment disorder with depressed mood Procedures CONSULT TO PSYCHIATRY OFFICE/OUTPATIENT [facility] 60-74 MINUTES Krys Zaragoza APRN.DRILLER OPERATOR [address] [place] [address] Referral ID Status Reason Start Date Expiration Date Visits Requested Visits Authorized [id number] Pending Review PCP Requested Referral 07/14/2022 07/14/2023 1 1 Additional Source Comments INFORMATION SOURCE (unrecogn ized section and content) DATE CREATED AUTHOR AUTHOR'S ORGANIZ ATION 04/27/2018 [facility] DATE CREATED AUTHOR AUTHOR'S ORGANIZ ATION 05/02/2022 [facility] DATE CREATED AUTHOR AUTHOR'S ORGANIZ ATION 10/15/2023 [facility] DATE CREATED AUTHOR AUTHOR'S ORGANIZ ATION 11/20/2023 [facility] Source Comments (unrecognize d section and content) In the event this informatio n is protected by the Federal Confidentiality of Alcohol and Drug Abuse Patient Records regulations: The Federal rules restrict any use of the information to criminally investigate or prosecute any alcohol or drug abuse patient.[facility] the event this information is protected by the Federal Confidentiality of Alcohol and Drug Abuse Patient Records regulations: The Federal rules restrict any use of the information to criminally investigate or prosecute any alcohol or drug abuse patient.[facility] the event this information is protected by the Federal Confidentiality of Alcohol and Drug Abuse Patient Records regulations: The Federal rules restrict any use of the information to criminally investigate or prosecute any alcohol or drug abuse patient.[facility] the event this information is protected by the Federal Confidentiality of Alcohol and Drug Abuse Patient Records regulations: The Federal rules restrict any use of the information to criminally investigate or prosecute any alcohol or drug abuse patient.[facility] the event this information is protected by the Federal Confidentiality of Alcohol and Drug Abuse Patient Records regulations: The Federal rules restrict any use of the information to criminally investigate or prosecute any alcohol or drug abuse patient.[facility] the event this information is protected by the Federal Confidentiality of Alcohol and Drug Abuse Patient Records regulations: The Federal rules restrict any use of the information to criminally investigate or prosecute any alcohol or drug abuse patient.[facility] the event this information is protected by the Federal Confidentiality of Alcohol and Drug Abuse Patient Records regulations: The Federal rules restrict any use of the information to criminally investigate or prosecute any alcohol or drug abuse patient.[facility] the event this information is protected by the Federal Confidentiality of Alcohol and Drug Abuse Patient Records regulations: The Federal rules restrict any use of the information to criminally investigate or prosecute any alcohol or drug abuse patient.[facility] the event this information is protected by the Federal Confidentiality of Alcohol and Drug Abuse Patient Records regulations: The Federal rules restrict any use of the information to criminally investigate or prosecute any alcohol or drug abuse patient.[facility] the event this information is protected by the Federal Confidentiality of Alcohol and Drug Abuse Patient Records regulations: The Federal rules restrict any use of the information to criminally investigate or prosecute any alcohol or drug abuse patient.[facility] the event this information is protected by the Federal Confidentiality of Alcohol and Drug Abuse Patient Records regulations: The Federal rules restrict any use of the information to criminally investigate or prosecute any alcohol or drug abuse patient.[facility] the event this information is protected by [...] or prosecute any alcohol or drug abuse patient.[facility] the event this information is protected by the Federal Confidentiality of Alcohol and Drug Abuse Patient Records regulations: The Federal rules restrict any use of the information to criminally investigate or prosecute any alcohol or drug abuse patient.[facility] the event this information is protected by the Federal Confidentiality of Alcohol and Drug Abuse Patient Records regulations: The Federal rules restrict any use of the information to criminally investigate or prosecute any alcohol or drug abuse patient.[facility] the event this information is protected by the Federal Confidentiality of Alcohol and Drug Abuse Patient Records regulations: The Federal rules restrict any use of the information to criminally investigate or prosecute any alcohol or drug abuse patient.[facility] the event this information is protected by the Federal Confidentiality of Alcohol and Drug Abuse Patient Records regulations: The Federal rules restrict any use of the information to criminally investigate or prosecute any alcohol or drug abuse patient.[facility] Care Teams (unrecognized sec tion and content) Traffic Warehouse Supervisor Relationship Specialty Start Date End Date Tono Caruso, DO [address] [place] [address] PCP - General Family Practice 04/01/13 Traffic Warehouse Supervisor Relationship Specialty Start Date End Date Tono Caruso, DO [address] [facility] [place] [address] PCP - General Family Practice 04/01/13 Traffic Warehouse Supervisor Relationship Specialty Start Date End Date Tono Caruso DO [address] [facility] [place] [address] PCP - General Family Practice 04/01/13 Traffic Warehouse Supervisor Relationship Specialty Start Date End Date Tono Caruso, DO [address] [facility] [place] [address] PCP - General Family Practice 04/01/13 Traffic Warehouse Supervisor Relationship Specialty Start Date End Date Tono Caruso DO [address] [facility] [place] [address] PCP - General Family Practice 04/01/13 Traffic Warehouse Supervisor Relationship Specialty Start Date End Date Tono Caruso DO [address] [facility] [place] [address] PCP - General Family Medicine 04/01/13 Traffic Warehouse Supervisor Relationship Specialty Start Date End Date Tono Caruso, DO [address] [place] [address] PCP - General Family Medicine 04/01/13 Traffic Warehouse Supervisor Relationship Specialty Start Date End Date Tono Caruso, DO [address] [place] [address] PCP - General Family Medicine 04/01/13 Traffic Warehouse Supervisor Relationship Specialty Start Date End Date Tono Caruso, DO [address] [place] [address] PCP - General Family Medicine 04/01/13 Traffic Warehouse Supervisor Relationship Specialty Start Date End Date Tono Caruso, DO [address] [place] [address] PCP - General Family Medicine 04/01/13 Traffic Warehouse Supervisor Relationship Specialty Start Date End Date Tono Caruso, DO [address] [place] [address] PCP - General Family Medicine 04/01/13 Traffic Warehouse Supervisor Relationship Specialty Start Date End Date Tono Caruso, DO [address] [place] [address] PCP - General Family Medicine 04/01/13 Traffic Warehouse Supervisor Relationship Specialty Start Date End Date Tono Caruso DO [address] [place] [address] PCP - General Family Medicine 04/01/13 Traffic Warehouse Supervisor Relationship Specialty Start Date End Date Tono Caruso DO [address] [place] [address] PCP - General Family Medicine 04/01/13 Reason [...] BE BASED ON THE PRIMARY CLINICAL RECORDS. [employer] provides no warranty or guarantee of the accuracy or completeness of information in this document.
[2023-12-05 18:08] VITALS: BMI 30.2
[2023-12-05 18:42] LABS: ROM Internal Control Test YES-OK TO RESULT pt. (Internal QC); ROM Patient Test Negative (Negative)
--- NOTE | 2023-12-05 18:54 | OB.TRI.PN_ITS ---
Progress Notes Date of Service: 12/05/23 Progress Note: Patient presents for triage evaluation secondary to vaginal discharge FHT: 130 Moderate variability reactive no decelerations category I tracing [place]: irregular Contractions Assessment and plan: negative ROM, Reactive NST, reassuring maternal and status patient discharged to home to follow-up in office. See problem list details for additional plan information. Laboratory Studies: Laboratory Tests 12/05/23 Range/Units 18:13 Vag Amniotic Fld Detect Negative (Negative) Charges/Coding Multi Select Codes Urinary/Genital Urinary/Genital CPT Codes: 32885-24 non-stress test Interp Assessment & Plan (1) Vaginal discharge during : COMMENT: negative ROM 2/3-D/C home (2) Anemia affecting : COMMENT: hbg 10, added po iron. repeat at 30 weeks. (3) Positive self-administered antigen test for COVID-19: COMMENT: 81 mg asa possible 36 wk growth ultrasound (4) Circumvallate placenta: COMMENT: adequate growth 08/20. continue monthly growth scans (5) Borderline personality disorder: COMMENT: counseling encouraged (6) Anxiety during : (7) Depression affecting : COMMENT: zoloft/not taking, encouraged counseling:sched in 3 weeks. Stable. (8) Supervision of high risk , antepartum: COMMENT: [id number] MARK 12/07/23 by LMP KIM Galicia (9) : QUALIFIERS: Weeks of gestation: 39 weeks Qualified Code(s): Z3A.39 - 39 weeks gestation of COMMENT: gbs neg, AFP:negative. NIPT low risk, declined [place]rier nl anatomy (10) Nausea and vomiting during : COMMENT: using zofran; significantly improved.
== END 2023-12-05 18:55 | disposition home or self-care (01) ==
LOC: WPOUT 17:50 → WP 17:50
PROVIDERS: PCP Student in an Organized Health Care Education/Training Program; Visit Provider Advanced Practice Midwife
DX: O99.891 Other specified diseases and conditions complicating pregnancy (principal); N89.8 Other specified noninflammatory disorders of vagina; O47.1 False labor at or after 37 completed weeks of gestation; Z3A.39 39 weeks gestation of pregnancy
CPT/HCPCS: 59025; 59050; 84112; 99221; G0378

== ENCOUNTER 2023-12-10 18:50 | Inpatient (IN) | payer BC, MEDICAID, SELFPAY ==
--- OUTSIDE RECORDS SUMMARY | 2023-12-10 19:04 | XMS RPT_ITS | CCD ---
Author Name Unknown Address [address] [place] [address] Organization [facility] Care Team Providers Care Plant Technician/Control Room Operator Name Role Phone EDGARD CALL Unavailable Unavailable [...] Attending Unavailab MONTSE Gutiérrez Primary Care Unavailable SHELLY LANDERS Attending Unavailable FOSTER DICKERSON Referring Unavailab MONTSE Gutiérrez Primary Care Unavailable ODALYS JAY Referring UnavailAARON Dubon Attending Unavailable MONTSE VOGEL Primary Care Unavailable ODALYS JAY Referring Unavailabl AARON Schrader Attending Unavailable MONTSE VOGEL Primary Care Unavailable ODALYS JAY Referring Unavailabl e AARON GOLDSTEIN Attending Unavailable MONTSE VOGEL Primary Care Unavailable Medications Current Medications Medication Drug Class(es) Dates Sig (Normalized) Sig (Original) [id number] 200 actuat albuterol 0.09 mg/actuat metered dose [...] 12:22-0500 Body temperature 97.81 [degF] Javier العلي PIPE CHIPPER.CATARACT LENS GENERATOR Work Phone: [facility] 10-13-2023 12:22-0500 Body weight 81.65 kg Javier العلي PIPE CHIPPER.CATARACT LENS GENERATOR Work Phone: [facility] 10-13-2023 12:22-0500 Diastolic blood pressure 86 mm[Hg] Javier العلي PIPE CHIPPER.CATARACT LENS GENERATOR Work Phone: [facility] 10-13-2023 12:22-0500 Heart rate 86 /min Javier العلي PIPE CHIPPER.CATARACT LENS GENERATOR Work Phone: [facility] 10-13-2023 12:22-0500 Respiratory rate 18 /min Javier العلي PIPE CHIPPER.CATARACT LENS GENERATOR Work Phone: [facility] 10-13-2023 12:22-0500 SaO2% (BldA) [Mass fraction] 99 % Javier العلي PIPE CHIPPER.CATARACT LENS GENERATOR Work Phone: [facility] 10-13-2023 12:22-0500 Systolic blood pressure 138 mm[Hg] Javier العلي PIPE CHIPPER.CATARACT LENS GENERATOR Work Phone: [facility] 06-11-2023 13:43-0400 Body temperature 98.29 [degF] Chrissie Gongora PA Work Phone: [facility] 06-11-2023 13:43-0400 Body weight 72.58 kg Chrissie Gongora PA Work Phone: [facility] 06-11-2023 13:43-0400 Diastolic blood pressure 80 mm[Hg] Krislyn Abyosvany PA Work Phone: [facility] 06-11-2023 13:43-0400 Heart rate 70 /min Krislyn Aberegg PA Work Phone: [facility] 06-11-2023 13:43-0400 Respiratory rate 18 /min Krislyn Aberegg PA Work Phone: [facility] 06-11-2023 13:43-0400 SaO2% (BldA) [Mass fraction] 100 % Krislyn Aberegg PA Work Phone: [facility] 06-11-2023 13:43-0400 Systolic blood pressure 116 mm[Hg] Krislyn Aberegg PA Work Phone: [facility] 08-04-2022 08:21-0400 Body temperature 97.39 [degF] [facility] PIPE CHIPPER.CATARACT LENS GENERATOR Work Phone: [facility] 08-04-2022 08:21-0400 Body weight 80.29 kg Montse Pendlekoffi PIPE CHIPPER.CATARACT LENS GENERATOR Work Phone: [facility] 08-04-2022 08:21-0400 Diastolic blood pressure 68 mm[Hg] Montse Pendlebury PIPE CHIPPER.CATARACT LENS GENERATOR Work Phone: [facility] 08-04-2022 08:21-0400 Heart rate 80 /min Montse Pendlebury PIPE CHIPPER.CATARACT LENS GENERATOR Work Phone: [facility] 08-04-2022 08:21-0400 Respiratory rate 16 /min Montse Pendlebury PIPE CHIPPER.CATARACT LENS GENERATOR Work Phone: [facility] 08-04-2022 08:21-0400 SaO2% (BldA) [Mass fraction] 98 % Montse Pendlebury PIPE CHIPPER.CATARACT LENS GENERATOR Work Phone: [facility] 08-04-2022 08:21-0400 Systolic blood pressure 118 mm[Hg] Montse Pendlebury PIPE CHIPPER.CATARACT LENS GENERATOR Work Phone: [facility] 05-01-2022 13:58-0400 Body height 165.1 cm Tono Caruso Other Phone: [facility] 05-01-2022 13:58-0400 Body temperature 97.34 [degF] Tono Caruso Other Phone: [facility] 05-01-2022 13:58-0400 Diastolic blood pressure 74 mm[Hg] Tono Caruso Other Phone: [facility] 05-01-2022 13:58-0400 Heart rate 98 /min Tono Caruso Other Phone: [facility] 05-01-2022 13:58-0400 Respiratory rate 16 /min Tono Caruso Other Phone: [facility] 05-01-2022 13:58-0400 SaO2% (BldA) [Mass fraction] 100 % Tono Caruso Other Phone: [facility] 05-01-2022 13:58-0400 Systolic blood pressure 131 mm[Hg] Tono Caruso Other Phone: [facility] 04-30-2022 15:30-0400 Body weight 82.1 kg Krys Nik PIPE CHIPPER.CATARACT LENS GENERATOR Work Phone: [facility] 04-30-2022 15:30-0400 Diastolic blood pressure 72 mm[Hg] Krys Nik PIPE CHIPPER.CATARACT LENS GENERATOR Work Phone: [facility] 04-30-2022 15:30-0400 Heart rate 76 /min Krys Nik PIPE CHIPPER.CATARACT LENS GENERATOR Work Phone: [facility] 04-30-2022 15:30-0400 Respiratory rate 16 /min Krys Nik PIPE CHIPPER.CATARACT LENS GENERATOR Work Phone: [facility] 04-30-2022 15:30-0400 SaO2% (BldA) [Mass fraction] 97 % Krys Nik PIPE CHIPPER.CATARACT LENS GENERATOR Work Phone: [facility] 04-30-2022 15:30-0400 Systolic blood pressure 104 mm[Hg] Krys Zaragoza PIPE CHIPPER.CATARACT LENS GENERATOR Work Phone: [facility] 04-30-2022 14:45-0400 Body height 163.8 cm Marileetemitope DoeFarzana PIPE CHIPPER.CATARACT LENS GENERATOR Work Phone: [facility] 04-30-2022 14:45-0400 Body weight 81.65 kg Marilee Doecalf PIPE CHIPPER.CATARACT LENS GENERATOR Work Phone: [facility] 04-30-2022 14:45-0400 Diastolic blood pressure 68 mm[Hg] Marilee Goodrich PIPE CHIPPER.CATARACT LENS GENERATOR Work Phone: [facility] 04-30-2022 14:45-0400 Systolic blood pressure 112 mm[Hg] Marilee Farzana PIPE CHIPPER.CATARACT LENS GENERATOR Work Phone: [facility] Encounters Encounter Date Encounter Type Care Provider Facility Start: 11-17-2023 End: 11-17-2023 ambulatory [facility] Start: 10-20-2023 End: 10-20-2023 ambulatory ODALYS Dwayne [facility] Start: 10-13-2023 End: 10-13-2023 ambulatory TONO CARUSO Facility:[facility] Start: 10-13-2023 End: 10-13-2023 Patient encounter procedure Javier العلي APRN.CATARACT LENS GENERATOR Work Phone: [facility] Procedures Date Procedure Procedure Detail Performing Clinician Start: 02-23-2023 Follow-up visit Follow Up JANE ULLOA Start: 08-04-2022 STREP A MOLECULAR (POC) Montse Cat PIPE CHIPPER.CATARACT LENS GENERATOR Work Phone: Start: 06-19-2022 Adult depression screening assessment Krys Zaragoza PIPE CHIPPER.CATARACT LENS GENERATOR Work Phone: Start: 04-30-2022 Adult depression screening assessment Marilee Farzana PIPE CHIPPER.CATARACT LENS GENERATOR Work Phone: Start: 12-06-2018 Adult depression screening assessment Marilee Farzana PIPE CHIPPER.CATARACT LENS GENERATOR Work Phone: Plan of Treatment Date Care Activity Detail Author Start: 04-30-2025 PAP TESTING PAP TESTING [facility] Start: 04-30-2025 Screening for malignant neoplasm of cervix Pap Testing [facility] Start: 12-28-2023 PAP TESTING PAP TESTING [facility] Start: 07-03-2023 Covid-19 Vaccine ( season) Covid-19 Vaccine ( season) [facility] Start: 07-03-2023 Influenza vaccination [facility] Start: 06-19-2023 Adult depression screening assessment DEPRESSION SCREENING [facility] Start: 04-30-2023 Adult depression screening assessment DEPRESSION SCREENING [facility] Start: 04-30-2023 CHLAMYDIA SCREENING () CHLAMYDIA SCREENING () [facility] Start: 04-30-2023 GC (GONORRHEA) SCREENING () GC (GONORRHEA) SCREENING () [facility] Start: 07-03-2022 Influenza vaccination [facility] Start: 06-19-2022 End: 08-19-2022 Choriogonadotropin.beta subunit [Units/volume] in Serum or Plasma HCG QUANTITATIVE Lab Routine Positive test Expected: 06/19/2022, Expires: 08/19/2022 [facility] Work Phone: Immunizations Immunization Date Immunization Notes Care Provider Angella gallo 12-01-2018 influenza virus vacc ine, unspecified formulation Javier العلي PIPE CHIPPER.CATARACT LENS GENERATOR Work Phone: [facility] 12-05-2014 meningococcal polysaccharide (groups A, C, Y and W-135) diphtheria toxoid conjugate vaccine (MCV4P) Marilee Doecalf PIPE CHIPPER.CATARACT LENS GENERATOR Work Phone: [facility] Work Phone: 01-31-2013 varicella virus vaccine Jmaeson Yanes PIPE CHIPPER.CATARACT LENS GENERATOR Work Phone: [facility] Work Phone: 08-29-2011 human papilloma viru s vaccine, quadrivalent Marilee Goodrich PIPE CHIPPER.CATARACT LENS GENERATOR Work Phone: [facility] Work Phone: 04-24-2011 human papilloma viru s vaccine, quadrivalent Marilee Goodrich PIPE CHIPPER.CATARACT LENS GENERATOR Work Phone: [facility] Work Phone: 12-30-2010 human papilloma viru s vaccine, quadrivalent Marilee Farzana PIPE CHIPPER.CATARACT LENS GENERATOR Work Phone: [facility] 12-30-2010 Meningococcal, MCV4, unspecified conjugate formulation(groups A, C, Y and W-135) Marilee Farzana PIPE CHIPPER.CATARACT LENS GENERATOR Work Phone: [facility] 12-30-2010 tetanus toxoid, redu jaida diphtheria toxoid, and acellular pertussis vaccine, adsorbed Marilee Goodrich PIPE CHIPPER.CATARACT LENS GENERATOR Work Phone: [facility] 12-30-2010 varicella virus vaccine Jameson e Farzana PIPE CHIPPER.CATARACT LENS GENERATOR Work Phone: [facility] 06-24-2004 diphtheria, tetanus toxoids and acellular pertussis vaccine Marilee Goodrich PIPE CHIPPER.CATARACT LENS GENERATOR Work Phone: [facility] Work Phone: 12-10-2001 diphtheria, tetanus toxoids and acellular pertussis vaccine Marilee Goodrich PIPE CHIPPER.CATARACT LENS GENERATOR Work Phone: [facility] Work Phone: 06-24-2001 measles, mumps and rubella virus vaccine Marilee Farzana PIPE CHIPPER.CATARACT LENS GENERATOR Work Phone: [facility] Work Phone: 06-24-2001 poliovirus vaccine, inactivated Marilee Farzana PIPE CHIPPER.CATARACT LENS GENERATOR Work Phone: [facility] Work Phone: 12-25-1999 measles, mumps and rubella virus vaccine Marilee Farzana PIPE CHIPPER.CATARACT LENS GENERATOR Work Phone: [facility] Work Phone: 12-25-1999 poliovirus vaccine, inactivated Marilee Goodrich PIPE CHIPPER.CATARACT LENS GENERATOR Work Phone: [facility] Work Phone: 08-21-1999 hepatitis B vaccine, pediatric or pediatric/adolescent dosage Marilee Farzana PIPE CHIPPER.CATARACT LENS GENERATOR Work Phone: [facility] Work Phone: 06-05-1999 diphtheria, tetanus toxoids and acellular pertussis vaccine Marilee Farzana PIPE CHIPPER.[facility] Work Phone: [facility] Work Phone: 06-05-1999 haemophilus influenz ae type b vaccine, conjugate unspecified formulation Marilee Goodrich PIPE CHIPPER.[facility] Work Phone: [facility] Work Phone: 04-18-1999 diphtheria, tetanus toxoids and acellular pertussis vaccine Marilee Farzana PIPE CHIPPER.[facility] Work Phone: [facility] Work Phone: 04-18-1999 haemophilus influenz ae type b vaccine, conjugate unspecified formulation Marilee Goodrich PIPE CHIPPER.[facility] Work Phone: [facility] Work Phone: 04-18-1999 poliovirus vaccine, inactivated Marilee Goodrich PIPE CHIPPER.[facility] Work Phone: [facility] Work Phone: 04-18-1999 rotavirus, live, pentavalent vaccine Marilee Goodrich PIPE CHIPPER.[facility] Work Phone: [facility] Work Phone: 02-07-1999 diphtheria, tetanus toxoids and acellular pertussis vaccine Marilee Goodrich PIPE CHIPPER.[facility] Work Phone: [facility] Work Phone: 02-07-1999 haemophilus influenz ae type b vaccine, conjugate unspecified formulation Marilee Goodrich PIPE CHIPPER.[facility] Work Phone: [facility] Work Phone: 02-07-1999 poliovirus vaccine, inactivated Marilee Goodrich PIPE CHIPPER.[facility] Work Phone: [facility] Work Phone: 02-07-1999 rotavirus, live, pentavalent vaccine Marilee Goodrich PIPE CHIPPER.CATARACT LENS GENERATOR Work Phone: [facility] Work Phone: 1998 hepatitis B vaccine, pediatric or pediatric/adolescent dosage Marilee Farzana PIPE CHIPPER.CATARACT LENS GENERATOR Work Phone: [facility] Work Phone: 1998 hepatitis B vaccine, pediatric or pediatric/adolescent dosage Marilee Farzana PIPE CHIPPER.CATARACT LENS GENERATOR Work Phone: [facility] Work Phone: Payers Date Payer Category Payer Medicaid [employer] [id number] 2023-Present [phone] [address] [place] [address] Medicaid [id number] 2023 Medicaid [id number] 2022 Unknown 2022 Unknown [id number] 2022 Private Health Insurance [facility] [employer] PPO [id number] 2022-Present [phone] [address] [address] [place] [address] PPO [id number] 2022 Private Health Insurance [facility] [employer] PPO [id number] 2022-Present [phone] [address] [address] [place] [address] PPO [id number] 2019 Unknown MMO MMO [employer] [id number] 2019-Present [phone] [address] [place] [address] PPO [id number] 1998 Unknown [id number] 1998 Unknown [id number] 1971 Unknown [id number] 1971 Unknown [id number] 1971 Unknown [id number] Unknown [id number] Social History Date Type Detail Facility Start: 08-26-2017 End: 06-20-2022 Tobacco smoking status NHIS Never smoked tobacco [facility] Start: 12-24-2021 End: 10-13-2023 Alcohol intake Current drinker of alcohol (finding) [facility] Start: 08-26-2017 History SDOH Alcohol Comment social [facility] Start: 12-28-2020 History SDOH Social Connections Phone 5 [facility] Start: 12-28-2020 History SDOH Social Connections Holiness 1 [facility] Start: 12-28-2020 History SDOH Social Connections Membership 2 [facility] Start: 12-28-2020 History SDOH Social Connections Living 7 [facility] Start: 12-28-2020 History SDOH Physical Activity MPS 6 [facility] Start: 12-28-2020 Education 13 [facility] Start: 2000 Sex Assigned At Not on file [facility] Start: 04-19-2022 End: 08-04-2022 Exposure to SARS-CoV-2 (event) Not sure [facility] Work Phone: Tobacco smoking consumption unknown [facility] Start: 08-26-2017 End: 06-20-2022 Tobacco use and exposure Smokeless tobacco non-user [facility] Start: 12-28-2020 End: 02-23-2023 History of Social function [facility] Work Phone: Start: 12-28-2020 End: 02-23-2023 Social connection and isolation panel [facility] Work Phone: Do you belong to any clubs or organizations such as sikhism groups, unions, fraternal or athletic groups, or school groups? No [facility] Work Phone: Are you now , , , , never or living with a partner? Never [facility] Work Phone: Adult Depression Screening Assessment 3 [facility] Do you feel stress - tense, restless, nervous, or anxious, or unable to sleep at night because your mind is troubled all the time - these days [OSQ] Only a little [facility] Work Phone: Clinical Notes 07-10-2015 to 10-13-2023 Javier العلي APRN.CATARACT LENS GENERATOR - 10/13/2023 1:58 PM Chrissie Rocha, PA - 06/11/2023 1:53 PM EDTPatient InstructionsPatient InstructionsJane Ulloa APRN.CNP - 02/23/2023 4:10 PM EDT Note Date & Type Note Facility 10-13-2023 Note HNO ID: [id number] Author: Javier العلي APRN.CATARACT LENS GENERATOR Service: ? Author Type: Nurse Practitioner Type: [...] ICD10: H69.93 Try fluticasone and cetirizine Notify design engineer marine equipment of medication F/u for continued/worsening s/s. - FLUTICASONE PROPIONATE 50 MCG/ACTUATION NASAL SPRAY,SUSPENSION - CETIRIZINE 10 MG TABLET Javier العلي APRN.[facility] 10-13-2023 History of Presen t illness [...] ICD10: H69.93 Try fluticasone and cetirizine Notify design engineer marine equipment of medication F/u for continued/worsening s/s. - FLUTICASONE PROPIONATE 50 MCG/ACTUATION NASAL SPRAY,SUSPENSION - CETIRIZINE 10 MG TABLET Javier العلي APRN.CATARACT LENS GENERATOR documented in this encounter [facility] 09-01-2023 Note HNO ID: [id number] Author: Daisy Chavez APRN.CATARACT LENS GENERATOR Service: ? Author Type: Nurse Practitioner Type: [...] Discussed expected course of illness Daisy Chavez APRN.[facility] 06-11-2023 Note HNO ID: [id number] Author: Chrissie Gongora PA Service: ? Author Type: Physician Journeyman Electrician Pv Installer Type: Progress Notes Filed: 06/11/2023 1:56 PM Note Text: This note was created using Squirroriter. Subjective Jez Barrera is a 22 year [...] detail warranting prompt ER evaluation. MAMADOU Perla [facility] 06-11-2023 History of Presen t illness Narrative This note was created using Squirroriter. Subjective Jez Barrera is a 22 year [...] evaluation. MAMADOU Perla documented in this encounter [facility] 06-11-2023 Instructions Chrissie Gongora PA - 06/11/2023 [...] medication or giving medication to your child. Frdp-[id number]-[id number] cold medications may relieve the symptoms of [...] or stomach pain. documented in this encounter [facility] 02-23-2023 Note HNO ID: [id number] Author: Jane Ulloa APRN.CATARACT LENS GENERATOR Service: ? Author Type: Nurse Practitioner Type: [...] visit. Either the patient or their legal sales representative leather goods has been informed of the risks and [...] Lamictal. She has been working as a [employer]. She is enjoying her job and her [...] which included preparing to see the patient, [id number] (more content not included)... [facility] 02-23-2023 Instructions Jane Ulloa APRN.[facility] - 02/23/2023 4:25 PM EDT [place] [...] - Call the National Suicide Hotline at 5-253-LACAYPQ ( ) or 8-470-365-TALK (2176) - Text 4HOPE to 847914 Medication Update: Lamictal 100 mg - take 1 tablet once daily. 2. Continue Prozac at the same dose. Next appointment: --Schedule in July or sooner if needed -- You may call the department appointment line at [phone] to schedule your appointment. -- Please call my nurse Dominique at [phone] or send me a message in Asurvest with any questions or concerns between appointments. documented in this encounter [facility] 02-23-2023 History of Presen t illness Narrative [...] Continue individual psychotherapy. Send an update via [employer] regarding the increase in Lamictal. Follow up [...] visit. Either the patient or their legal sales representative leather goods has been informed of the risks and [...] Lamictal. She has been working as a [employer]. She is enjoying her job and her [...] which included preparing to see the patient, [id number] patient care, completing clinical documentation, and counseling and educating the patient/family/caregiver, ordering medications/labs. Jane Ulloa APRN.EMILY February 23, 2023 4:10 PM This note was partially generated using ESP Systems voice recognition system. Note was reviewed for accuracy. There may be minor misspellings or grammar miscues with [employer] voice recognition. documented in this encounter [facility] 02-06-2023 Miscellaneous Notes Message to call office to schedule FU. Patient should schedule a follow up appointment. Refills will be provided after. documented in this encounter [facility] 02-03-2023 Note HNO ID: [id number] Author: MAAMDOU Perla Service: ? Author Type: Physician Journeyman Electrician Pv Installer Type: Progress Notes Filed: 02/03/2023 11:05 AM Note Text: This note was created using Squirroriter. Subjective Jez Barrera is a 22 year [...] No fevers. She does work in a group home. No vomiting or diarrhea. No chest pain [...] detail warranting prompt ER evaluation. MAMADOU Perla [facility] 11-17-2022 Note HNO ID: [id number] Author: Jane Ulloa APRN.CATARACT LENS GENERATOR Service: ? Author Type: Nurse Practitioner Type: [...] she had a rash and stopped Lamictal. Almond worse being off the Lamictal. 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 She is excited about the [...] which included preparing to see the patient, [id number]-[id number]-ehzy patient care, completing clinical documentation, and counseling and educ (more content not included)... [facility] 11-17-2022 Instructions Jane Ulloa APRN.CNP - 11/17/2022 [...] - Call the National Suicide Hotline at 1-138-NBTEKWK ( ) or 3-764-799-TALK (5903) - Text 4HOPE to 782166 Medication Update: Lamictal 25 mg - take 3 tablets once daily. Prozac 10 mg - take 1 capsule once daily for 7 days, then take 2 capsules once daily after that. Next appointment: --Schedule in 4 to 6 weeks or sooner if needed -- You may call the department appointment line at [phone] to schedule your appointment. -- Please call my nurse Dominique at [phone] or send me a message in Asurvest with any questions or concerns between appointments. documented in this encounter [facility] 11-17-2022 History of Presen t illness Narrative [...] she had a rash and stopped Lamictal. Almond worse being off the Lamictal. 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 She is excited about the [...] which included preparing to see the patient, [id number] patient care, completing clinical documentation, and counseling and educating the patient/family/caregiver, ordering medications/labs. Jane Ulloa APRN.CNP November 17, 2022 11:19 AM This note was partially generated using ESP Systems voice recognition system. Note was reviewed for accuracy. There may be minor misspellings or grammar miscues with ESP Systems voice recognition. documented in this encounter [facility] 10-17-2022 Note HNO ID: [id number] Author: Jane Ulloa APRN.CNP Service: ? Author [...] to be starting with a therapist in [facility]. She has noticed Lamictal helping [...] the patient, fac (more content not included)... [facility] 10-17-2022 Instructions Jane Ulloa APRN.CNP - 10/17/2022 10:59 AM EST Mich Pearson, It was good to talk with you today. Below is a summary of the plan that we discussed during your appointment for reference. Of course, if you have any questions or concerns do not hesitate to reach out to me via a message or call. Best, Jane Ulloa APRN.CATARACT LENS GENERATOR PLAN AND FOLLOW UP: YOU SHOULD SEEK [...] - Call the National Suicide Hotline at 9-294-KCPGBAF ( ) or 7-243-660-TALK (1007) - Text 4HXPT to 632428 Medication Update: Stop Celexa. Start Zoloft (Sertraline) 50 mg - take 1 tablet once daily. Increase Lamictal to 100 mg - take 1 tablet once daily. Next appointment: --Schedule in 4 weeks or sooner if needed -- You may call the department appointment line at [phone] to schedule your appointment. -- Please call my nurse Dominique at [phone] or send me a message in [employer] with any questions or concerns between appointments. documented in this encounter [facility] 10-17-2022 History of Presen t illness Narrative [...] to be starting with a therapist in [facility]. She has noticed Lamictal helping [...] HPI PATIENT DATA: Generalized Anxiety Disorder Scale (JHNONY-7) JHONNY - 7 SCORES 08/12/2022 08/13/2022 10/17/2022 [...] which included preparing to see the patient, ejol-ij-lmal patient care, completing clinical documentation, and counseling and educating the patient/family/caregiver, ordering medications/labs. Jane Ulloa APRN.CATARACT LENS GENERATOR October 17, 2022 10:40 AM This note was partially generated using [employer] voice recognition system. Note was reviewed for accuracy. There may be minor misspellings or grammar miscues with [employer] voice recognition. documented in this encounter [facility] 09-29-2022 Miscellaneous Notes Patient phones requesting refills as follows: Requested Prescriptions Pending Prescriptions Disp Refills citalopram hydrobromide (CELEXA) 10 mg tablet 30 tablet 2 Sig: Take 1 tablet by mouth once daily. LUPE-06/20/22 Labs-04/30/22 NOV-none med filled 07/17/22 Please review and advise. Trini Topete LPN documented in this encounter [facility] 09-18-2022 Miscellaneous Notes Patient has been identified [...] Marlee Elias Pss documented in this encounter [facility] 09-16-2022 History of Presen t illness Narrative Patient did not log in or her virtual visit with the provider today. She did not answer her phone prior to and during and appointment time. documented in this encounter [facility] 08-04-2022 Instructions Montse Cat APRN.EMILY - 08/04/2022 [...] contaminate your hand documented in this encounter [facility] 08-04-2022 History of Presen t illness Narrative [...] ear normal. Nose: Congestion present. Mouth/Throat: Lips: [place]. Mouth: Mucous membranes are moist. Pharynx: Oropharynx [...] of care. This note was generated using [employer] software. It may contain errors in wording, punctuation, or spelling. Montse Cat APRN.EMILY documented in this encounter [facility] 07-17-2022 Miscellaneous Notes The following approved medication [...] Krys Zaragoza APRN.CNP documented in this encounter [facility] 06-19-2022 Miscellaneous Notes Please see request for test documented in this encounter [facility] 05-02-2022 Miscellaneous Notes Patient calls and notified [...] No other concerns. documented in this encounter [facility] 04-30-2022 Instructions Krys Zaragoza APRN.CNP - 04/30/2022 3:51 PM EDT Get scheduled for counseling as you're planning. Have your labs completed. Schedule your thyroid ultrasound. Celexa. Take once daily. documented in this encounter [facility] 04-30-2022 History of Presen t illness Narrative [...] counseling and education. documented in this encounter [facility] 04-30-2022 History of Presen t illness Narrative [...] L0 SAB0 IAB0 Ectopic0 Multiple0 Live Births0 Process Control Board Operator History LMP: 09/02/2021, Having periods Age at Menarche: Age at First : Age at Menopause: Process Control Board Operator History Comments: Sexual Activity: Yes; Male; with [...] external genitalia normal, normal Bartholin's glands, urethra, Williford's glands, no vulvar lesions, no cervical lesions, [...] Marilee Yanes APRN.EMILY documented in this encounter [facility] 02-06-2022 Miscellaneous Notes Since she started back [...] Taylor Rizo RN documented in this encounter [facility] documented as of this encounter (statuses as of 02/06/2022) [facility] History of Past illness Narrative* Problem Noted Date Resolved Date Well adolescent visit 07/10/2015 09/11/2016 documented as of this encounter (statuses as of 04/30/2022) [facility] History of Past illness Narrative* Problem Noted Date Resolved Date Well adolescent visit 07/10/2015 09/11/2016 documented as of this encounter (statuses as of 04/30/2022) [facility] History of Past illness Narrative* Problem Noted Date Resolved Date Well adolescent visit 07/10/2015 09/11/2016 documented as of this encounter (statuses as of 05/02/2022) [facility] History of Past illness Narrative* Problem Noted Date Resolved Date Well adolescent visit 07/10/2015 09/11/2016 documented as of this encounter (statuses as of 06/19/2022) [facility] History of Past illness Narrative* Problem Noted Date Resolved Date Well adolescent visit 07/10/2015 09/11/2016 documented as of this encounter (statuses as of 07/17/2022) [facility] History of Past illness Narrative* Problem Noted Date Resolved Date Well adolescent visit 07/10/2015 09/11/2016 documented as of this encounter (statuses as of 08/04/2022) [address]2015 History of Past illness Narrative* Problem Noted Date Resolved Date Well adolescent visit 07/10/2015 09/11/2016 documented as of this encounter (statuses as of 09/16/2022) [address] History of Past illness Narrative* Problem Noted Date Resolved Date Well adolescent visit 07/10/2015 09/11/2016 documented as of this encounter (statuses as of 09/18/2022) [address] History of Past illness Narrative* Problem Noted Date Resolved Date Well adolescent visit 07/10/2015 09/11/2016 documented as of this encounter (statuses as of 09/29/2022) [address] History of Past illness Narrative* Problem Noted Date Resolved Date Well adolescent visit 07/10/2015 09/11/2016 documented as of this encounter (statuses as of 10/26/2022) [address] History of Past illness Narrative* Problem Noted Date Resolved Date Well adolescent visit 07/10/2015 09/11/2016 documented as of this encounter (statuses as of 11/23/2022) [address] History of Past illness Narrative* Problem Noted Date Resolved Date Well adolescent visit 07/10/2015 09/11/2016 documented as of this encounter (statuses as of 02/06/2023) [address] History of Past illness Narrative* Problem Noted Date Resolved Date Well adolescent visit 07/10/2015 09/11/2016 documented as of this encounter (statuses as of 02/24/2023) [address] History of Past illness Narrative* Problem Noted Date Diagnosed Date Resolved Date Well adolescent visit 07/10/20152015 documented as of this encounter (statuses as of 06/11/2023) [address] History of Past illness Narrative* Problem Noted Date Diagnosed Date Resolved Date Well adolescent visit 07/10/20152015 documented as of this encounter (statuses as of 10/14/2023) [facility] note* Diagnosis Encounter for gynecological examination (general) (routine) without abnormal findings- Primary Screening for cervical cancer Screening for malignant neoplasm of the cervix Screen for STD (sexually transmitted disease) Screening examination for venereal disease [facility]* Diagnosis 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 Iron deficiency Iron deficiency anemia, unspecified Screening for thyroid disorder Encounter for vitamin deficiency screening Screening for other and unspecified endocrine, nutritional, metabolic, and immunity disorders Family history of thyroid disease Family history of other endocrine and metabolic diseases [facility]* Diagnosis Vitamin D deficiency- Primary Unspecified vitamin D deficiency [facility] Diagnosis Positive test- Primary examination or test, positive result documented in this encounter [facility] note* Diagnosis 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 Adjustment disorder with depressed mood [facility]* Diagnosis Pharyngitis, unspecified etiology- Primary [facility] Diagnosis NO SHOW- Primary [facility] Diagnosis Moderate episode of recurrent major depressive disorder (HCC) [facility] Diagnosis Chronic post-traumatic stress disorder (PTSD)- Primary Moderate episode of recurrent major depressive disorder (HCC) Borderline personality disorder (HCC) Borderline personality disorder [facility] Diagnosis Chronic post-traumatic stress disorder (PTSD)- Primary Borderline personality disorder (HCC) Borderline personality disorder Moderate episode of recurrent major depressive disorder (HCC) [facility] Diagnosis Chronic post-traumatic stress disorder (PTSD)- Primary Borderline personality disorder (HCC) Borderline personality disorder Recurrent major depressive disorder, in partial remission (HCC) [facility] Diagnosis URI, acute- Primary Acute upper respiratory infections of unspecified site [facility] Diagnosis ETD (Eustachian tube dysfunction), bilateral- Primary documented in this encounter [facility] for referral (narrative)* Diagnostic Procedure Only (Routine) - Authorized Specialty Diagnoses / Procedures Referred By Contac t Referred To Contact US IMAGING Diagnoses Screening for thyroid disorder Family history of thyroid disease Procedures US THYROID/PARATHYROID US SOFT TISSUE HEAD & NECK REAL TIME IMGE DOCM Krys Zaragoza APRN.CNP [address] [place] [address] Us Imaging Referral ID Status Reason Start Date Expiration Date Visits Requested Visits Authorized [id number] Authorized Auto-Generat ed Referral 04/30/2022 05/30/2023 1 1 [facility] Summary Purpose Family History No Family History [...] depressed mood Procedures CONSULT TO PSYCHIATRY OFFICE/OUTPATIENT CARE ONE AT [facility] 60-74 MINUTES Krys Zaragoza APRN.CATARACT LENS GENERATOR [address] [place] [address] Referral ID Status Reason Start Date Expiration Date Visits Requested Visits Authorized [id number] Pending Review PCP Requested Referral 07/14/2022 07/14/2023 1 1 Additional Source Comments INFORMATION SOURCE (unrecogn ized section and content) DATE CREATED AUTHOR AUTHOR'S ORGANIZ ATION 04/27/2018 [facility] DATE CREATED AUTHOR AUTHOR'S ORGANIZ ATION 05/02/2022 [facility] DATE CREATED AUTHOR AUTHOR'S ORGANIZ ATION 10/15/2023 [facility] DATE CREATED AUTHOR AUTHOR'S ORGANIZ ATION 11/20/2023 [facility] Source Comments (unrecognize d section and content) In the event this informatio n is protected by the Federal Confidentiality of Alcohol and Drug Abuse Patient Records regulations: The Federal rules restrict any use of the information to criminally investigate or prosecute any alcohol or drug abuse patient.[facility] the event this information is protected by the Federal Confidentiality of Alcohol and Drug Abuse Patient Records regulations: The Federal rules restrict any use of the information to criminally investigate or prosecute any alcohol or drug abuse patient.[facility] the event this information is protected by the Federal Confidentiality of Alcohol and Drug Abuse Patient Records regulations: The Federal rules restrict any use of the information to criminally investigate or prosecute any alcohol or drug abuse patient.[facility] the event this information is protected by the Federal Confidentiality of Alcohol and Drug Abuse Patient Records regulations: The Federal rules restrict any use of the information to criminally investigate or prosecute any alcohol or drug abuse patient.[facility] the event this information is protected by the Federal Confidentiality of Alcohol and Drug Abuse Patient Records regulations: The Federal rules restrict any use of the information to criminally investigate or prosecute any alcohol or drug abuse patient.[facility] the event this information is protected by the Federal Confidentiality of Alcohol and Drug Abuse Patient Records regulations: The Federal rules restrict any use of the information to criminally investigate or prosecute any alcohol or drug abuse patient.[facility] the event this information is protected by the Federal Confidentiality of Alcohol and Drug Abuse Patient Records regulations: The Federal rules restrict any use of the information to criminally investigate or prosecute any alcohol or drug abuse patient.[facility] the event this information is protected by the Federal Confidentiality of Alcohol and Drug Abuse Patient Records regulations: The Federal rules restrict any use of the information to criminally investigate or prosecute any alcohol or drug abuse patient.[facility] the event this information is protected by the Federal Confidentiality of Alcohol and Drug Abuse Patient Records regulations: The Federal rules restrict any use of the information to criminally investigate or prosecute any alcohol or drug abuse patient.[facility] the event this information is protected by the Federal Confidentiality of Alcohol and Drug Abuse Patient Records regulations: The Federal rules restrict any use of the information to criminally investigate or prosecute any alcohol or drug abuse patient.[facility] the event this information is protected by the Federal Confidentiality of Alcohol and Drug Abuse Patient Records regulations: The Federal rules restrict any use of the information to criminally investigate or prosecute any alcohol or drug abuse patient.[facility] the event this information is protected by [...] or prosecute any alcohol or drug abuse patient.[facility] the event this information is protected by the Federal Confidentiality of Alcohol and Drug Abuse Patient Records regulations: The Federal rules restrict any use of the information to criminally investigate or prosecute any alcohol or drug abuse patient.[facility] the event this information is protected by the Federal Confidentiality of Alcohol and Drug Abuse Patient Records regulations: The Federal rules restrict any use of the information to criminally investigate or prosecute any alcohol or drug abuse patient.[facility] the event this information is protected by the Federal Confidentiality of Alcohol and Drug Abuse Patient Records regulations: The Federal rules restrict any use of the information to criminally investigate or prosecute any alcohol or drug abuse patient.[facility] the event this information is protected by the Federal Confidentiality of Alcohol and Drug Abuse Patient Records regulations: The Federal rules restrict any use of the information to criminally investigate or prosecute any alcohol or drug abuse patient.[facility] Care Teams (unrecognized sec tion and content) Plant Technician/Control Room Operator Relationship Specialty Start Date End Date Tono Caruso, DO [address] [place] [address] PCP - General Family Practice 04/01/13 Plant Technician/Control Room Operator Relationship Specialty Start Date End Date Tono Caruso, DO [address] [place] [address] PCP - General Family Practice 04/01/13 Plant Technician/Control Room Operator Relationship Specialty Start Date End Date Tono Caruso DO [address] [place] [address] PCP - General Family Practice 04/01/13 Plant Technician/Control Room Operator Relationship Specialty Start Date End Date Tono Caruso, DO [address] [place] [address] PCP - General Family Practice 04/01/13 Plant Technician/Control Room Operator Relationship Specialty Start Date End Date Tono Caruso DO [address] [place] [address] PCP - General Family Practice 04/01/13 Plant Technician/Control Room Operator Relationship Specialty Start Date End Date Tono Caruso DO [address] [place] [address] PCP - General Family Medicine 04/01/13 Plant Technician/Control Room Operator Relationship Specialty Start Date End Date Tono Caruos, DO [address] [place] [address] PCP - General Family Medicine 04/01/13 Plant Technician/Control Room Operator Relationship Specialty Start Date End Date Tono Caruso, DO [address] [place] [address] PCP - General Family Medicine 04/01/13 Plant Technician/Control Room Operator Relationship Specialty Start Date End Date Tono Carsuo, DO [address] [place] [address] PCP - General Family Medicine 04/01/13 Plant Technician/Control Room Operator Relationship Specialty Start Date End Date Tono Caruso, DO [address] [place] [address] PCP - General Family Medicine 04/01/13 Plant Technician/Control Room Operator Relationship Specialty Start Date End Date Tono Caruso, DO [address] [place] [address] PCP - General Family Medicine 04/01/13 Plant Technician/Control Room Operator Relationship Specialty Start Date End Date Tono Caruso, DO [address] [place] [address] PCP - General Family Medicine 04/01/13 Plant Technician/Control Room Operator Relationship Specialty Start Date End Date Tono Caruso DO [address] [place] [address] PCP - General Family Medicine 04/01/13 Plant Technician/Control Room Operator Relationship Specialty Start Date End Date Tono Caruso DO [address] [place] [address] PCP - General Family Medicine 04/01/13 Reason [...] BE BASED ON THE PRIMARY CLINICAL RECORDS. [employer] provides no warranty or guarantee of the accuracy or completeness of information in this document.
[2023-12-10 19:26] VITALS: BMI 30.6
[2023-12-10 20:04] VITALS: BP 121/80; PULSE 80; TEMP 36.8
[2023-12-10] MEDS: Lactated Ringers 1,000 ML 50 ML IV (20:10)
[2023-12-10 20:32] LABS: Absolute Lymphocyte Count 2.46 X10^3/uL (0.83-4.51); Absolute Neutrophil Count 7.3 X10^3/uL (2.0-7.7); Basophil# 0.04 X10^3/uL; Basophil% 0.4 % (0-1); Eosinophil# 0.07 X10^3/uL; Eosinophils% 0.7 % (0-5); Hematocrit 32.4 % (37-47); Hemoglobin 10.5 g/dL (12.0-15.0); Lymphocyte # 2.46 X10^3/ul (0.83-4.51); Mean Corp Hgb Conc 32.4 g/dL (32-36); Mean Corpuscular Hgb 25.4 pg (27.0-32.0); Mean Corpuscular Volume 78.3 fL (81-99); Mean Platelet Vol. 9.5 fl (6.2-12.0); Monocyte# 0.74 X10^3/uL; Monocyte% 6.9 % (0-10); NRBC Flagged by Analyzer 0 % (0-5); Neutrophil # 7.28 X10^3/uL (2.7-7.7); Neutrophil % 68.1 % (47-70); Platelet Count 262 K/mm3 (150-450); RBC Distribution Width CV 17.3 % (11.6-14.6); RBC Distribution Width SD 49.1 fl (35.1-43.9); Red Blood Count 4.14 M/mm3 (4.2-5.4); White Blood Count 10.7 K/mm3 (4.4-11.0)
[2023-12-10] MEDS: miSOPROStol 25 MCG TABLET VAGINAL (20:39)
[2023-12-10 21:10] LABS: Syphilis Antibodies Non-reactive
[2023-12-10 21:19] VITALS: BP 120/78; PULSE 70; TEMP 36.8; O2SAT 99
[2023-12-10] MEDS: Mag Hydrox/Al Hydrox/Simeth 30 ML UDC PO (21:26)
[2023-12-11] VITALS (31 sets, daily range): BP systolic 100–136; BP diastolic 52–83; PULSE 59–104; RESP 16; TEMP 36.5–37.5; O2SAT 98–100
[2023-12-11] MEDS: miSOPROStol 25 MCG TABLET VAGINAL (00:28)
[2023-12-11] MEDS: Acetaminophen 500 MG Tablet PO (02:28)
[2023-12-11] MEDS: fentaNYL 100 MCG/2 ML Ampul IV (05:49)
[2023-12-11] MEDS: 0.9% Saline Lock 10 ML Syringe IV ×2 (05:50→16:17)
[2023-12-11] MEDS: LACTATED RINGERS 500 ML 999 ML IV (06:46)
[2023-12-11] MEDS: fentaNYL-bupivacaine (epidural) 100 ML BAG EPIDURAL ×2 (07:49→12:35)
--- NOTE | 2023-12-11 08:05 | HP.PCM.OB_ITS ---
HPI - General General Date of Admission: 12/10/23 HPI Narrative JEZ BARRERA, is a 23 y/o @ 40 weeks 4 days who presents to L&D for IOL due to circumvallate placenta. She was started on cytotec over night and did well. She progressed to 2.5/70/0 and is now comfortable with epidural. She consents to AROM soon. Maternal Data Information MARK Calculator Estimated Delivery Date Method Current WG Current Estimate 12/07/23 LMP (Certain) 40w 4d Other Estimates 12/11/23 Ultrasound #1 40w 0d PFSH PFSH Medical History (Updated 12/10/23 @ 20:05 by Sierra Garcia) Anxiety Depression Placental abnormality Positive self-administered antigen test for COVID-19 Psychiatric disorder Home Medications vitamin-ferrous fumarate 40 mg iron-folic acid 1 mg tablet 1 tab PO DAILY see provid 07/21/23 [History Last Taken 12/10/23 08:00] Allergy/AdvReac Type Severity Reaction Status Date / Time No Known Allergies Allergy Verified 12/10/23 20:02 Family History Mother Depression Sister Depression Surgical History [place] teeth extracted Social History adopted: No household members: significant other housing: house number of children: 0 current occupational status: employed current occupation: [employer] pets and animals: Yes (not managing litter box) pets and animals: cat(s) and dog(s) history of recent travel: Yes out of state: Yes sexually active: Yes Smoking Status: Never smoker second hand exposure: No alcohol intake: never substance use type: does not use caffeine: No seatbelt use: always do you feel safe at home: Yes additional social history: BOYFRIEND LINDA FREDRICK History 1 Elective abortions Hx Para 0 Spontaneous abortions Hx # Term Pregnancies Ectopic pregnancies Hx # Pregnancies Multiple births # of living children Visit Details Expected Delivery Route/Plan Labor Preferences- CB/BF classes: enc labor support person: Linda labor intervention preferences: nitrous oxide and epidural pain management options preferred: cut cord/dad catch: [] : [] PP control planned: [] discussed possible routes of delivery and associated risks: [] special requests: [] Plans Covid status: [] Flu vaccine: declined Tdap vaccine: done Rhogam: na LARC form signed: Done Problem list reviewed and updated with the most current plan of care details and appropriate orders placed. Relevant counseling for the gestational age provided. Continue routine care and follow up unless otherwise noted in visit notes/problem list details OB Flowsheet Initial Weight: Not Recorded Date -?-?-?-?-?-?-?-?-?-?-?-?- EGA Weight BP Urine Prot -?-?-?-?-?-?-?-?-?-?-?-?- Glucose FHR FuHt Pres Dilation -?-?-?-?-?-?-?-?-?-?-?-?- Effaced St Visit Note 05/15/23 -?-?-?-?-?-?-?-?-?-?-?-?- 10w 4d 159 lb 122/80 -?-?-?-?-?-?-?-?-?-?-?-?- 175 -?-?-?-?-?-?-?-?-?-?-?-?- KW- had prior US with hospital. Handheld US used for FHT. 06/08/23 -?-?-?-?-?-?-?-?-?-?-?-?- 14w 0d 159 lb 2 oz 127/86 Nega tive -?-?-?-?-?-?-?-?-?-?-?-?- Negative 160 -?-?-?-?-?-?-?-?-?-?-?-?- LC- to obtain NO B labs today, decided to obtain genetic screening. order given. reviewed and declines afp. LC- to obtain NOB labs today , decided to obtain genetic screening. order given. reviewed and declines afp.anatomy ordered. 07/07/23 -?-?-?-?-?-?-?-?-?-?-?-?- 18w 1d 162 lb 114/74 Negative -?-?-?-?-?-?-?-?-?-?-?-?- Negative 161 -?-?-?-?-?-?-?-?-?-?-?-?- MH-NO VB. Decide d for AFP today. Not taking zoloft and feels well. Starts counseling in 3 wks. Nausea improved. 08/06/23 -?-?-?-?-?-?-?-?-?-?-?-?- 22w 3d 164 lb 110/70 -?-?-?-?-?-?-?-?-?-?-?-?- 150 22 -?-?-?-?-?-?-?-?-?-?-?-?- LC- no vb/ctx/lo f. good fm. no concerns. neg protein/ketone. reviewed anatomy scan. 28 week labs ordered. 09/07/23 -?-?-?-?-?-?-?-?-?-?-?-?- 27w 0d 176 lb 104/82 Trace -?-?-?-?-?-?-?-?-?-?-?-?- Negative 145 26 -?-?-?-?-?-?-?-?-?-?-?-?- Lc- no lof/vb/ct x. good fm. hbg 10, increase iron supplement. passed glucose. repeat cbc in 4 weeks. 10/06/23 -?-?-?-?-?-?-?-?-?-?-?-?- 31w 1d 178 lb 2 oz 119/84 Nega tive -?-?-?-?-?-?-?-?-?-?-?-?- Negative 145 30 -?-?-?-?-?-?-?-?-?-?-?-?- KW-no vb/lof/ re gular contractions. good fm. Work note for light duty today due to contractions at work and heavy lifting. cbc ordered for anemia 10/20/23 -?-?-?-?-?-?-?-?-?-?-?-?- 33w 1d 185 lb 112/76 Negative -?-?-?-?-?-?-?-?-?-?-?-?- Negative 150 32 -?-?-?-?-?-?-?-?-?-?-?-?- KW- no vb/lof/ct x. good fm. repeat cbc and iron studies next visit. encouraged to see all providers. KW- no vb/lof/ctx. good fm. repeat cbc and iron studies next visit. encouraged to see all providers. had US today. 11/06/23 -?-?-?-?-?-?-?-?-?-?-?-?- 35w 4d 188 lb 2 oz 107/72 Nega tive -?-?-?-?-?-?-?-?-?-?-?-?- Negative 140 35 -?-?-?-?-?-?-?-?-?-?-?-?- kw-no vb/crampin g. Tdap and LARC today. has US on 11/13/23 -?-?-?-?-?-?-?-?-?-?-?-?- 36w 4d 187 lb 127/84 Negative -?-?-?-?-?-?-?-?-?-?-?-?- Negative 145 37 1 -?-?-?-?-?-?-?-?-?-?-?-?- 40 -2 KW-no vb/l of/ctx. good fm. gbs today. 11/20/23 -?-?-?-?-?-?-?-?-?-?-?-?- 37w 4d 187 lb 110/75 Negative -?-?-?-?-?-?-?-?-?-?-?-?- Negative 140 37 1 -?-?-?-?-?-?-?-?-?-?-?-?- 50 -2 JV-no lof, vaginal bleeding, or dec fm. starting to talk about wanting membranes swept and induction. 11/27/23 -?-?-?-?-?-?-?-?-?-?-?-?- 38w 4d 190 lb 110/78 -?-?-?-?-?-?-?-?-?-?-?-?- 140 38 1 -?-?-?-?-?-?-?-?-?-?-?-?- SM- no vb lof go od fm no regular ctx 12/04/23 -?-?-?-?-?-?-?-?-?-?-?-?- 39w 4d 188 lb 116/77 Negative -?-?-?-?-?-?-?-?-?-?-?-?- Negative 140 39 1 -?-?-?-?-?-?-?-?-?-?-?-?- 70 -2 JV- no lof , vaginal bleeding, or dec fm. labor precautions discussed/ 41 week IOL discussed. 12/08/23 -?-?-?-?-?-?-?-?-?-?-?-?- 40w 1d 190 lb 8 oz 120/73 Nega tive -?-?-?-?-?-?-?-?-?-?-?-?- Negative 145 39 1.5 -?-?-?-?-?-?-?-?-?-?-?-?- 50 -2 JV- pt ask ing for IOL due to exhaustion and pain.IOL set up for night, ROS Constitutional Constitutional: Denies change in weight, fatigue, fever(s), headache(s), poor appetite or weakness Eyes Eyes: Denies blurry vision, change in vision, seeing flashes or spots in vision ENT HEENT: Denies dizziness, headache(s), loss taste/smell or sore throat Cardiovascular Cardiovascular: Denies chest pain, dizziness, dyspnea, irregular heart rhythm, leg edema, palpitations, rapid heart rate or vomiting Respiratory/Chest Respiratory/Chest: Denies chest tightness, cough, dyspnea or breast pain Gastrointestinal Gastrointestinal: Denies abdominal pain, anorexia, constipation, cramping, diarrhea, hemorrhoids, vomiting or weight changes Genitourinary Genitourinary: Denies dysuria, flank pain, genital lesions, genital pain, urinary frequency or urinary urgency Musculoskeletal Musculoskeletal: Denies back pain, difficulty walking, joint pain, limited range of motion, muscle cramps or numbness Integumentary Integumentary: Denies lesions or unusual bruising Neurologic Neurologic: Denies abnormal movements, abnormal speech, dizziness, numbness, seizure-like activity or syncope Psychiatric Psychiatric: Denies anxiety, behavioral changes, change in appetite, change in libido, cognitive impairment, confusion, depression, difficulty concentrating, hallucinations or suicidal thoughts Endocrine Endocrinology: Denies excessive sweating, polydipsia or polyuria Hematologic/Lymphatic Hematologic/Lymphatic: Denies easy bleeding, easy bruising or lymphadenopathy Allergic/Immunologic Allergic/Immunologic: Denies itchy eyes, lip swelling, seasonal rhinorrhea, rhinitis, throat swelling, tongue swelling, eczemia, wheezing or asthma Vital Signs Vital Signs Vital Signs: 12/10/23 20:04 12/10/23 20:04 12/10/23 20:04 Temperature Temperature Source Temporal Pulse Rate 80 Blood Pressure 121/80 H BP Systolic 121 BP Diastolic 80 Pulse Ox 12/10/23 20:04 12/10/23 21:19 12/10/23 21:19 Temperature 98.3 F Temperature Source Temporal Pulse Rate Blood Pressure 120/78 BP Systolic 120 BP Diastolic 78 Pulse Ox 12/10/23 21:19 12/10/23 21:19 12/10/23 21:19 Temperature 98.2 F Temperature Source Pulse Rate 70 Blood Pressure BP Systolic BP Diastolic Pulse Ox 99 12/11/23 00:25 12/11/23 00:25 12/11/23 00:25 Temperature Temperature Source Temporal Pulse Rate 70 Blood Pressure 123/68 H BP Systolic 123 BP Diastolic 68 Pulse Ox 12/11/23 00:25 12/11/23 00:25 12/11/23 04:28 Temperature 98.5 F Temperature Source Pulse Rate Blood Pressure 124/77 H BP Systolic 124 BP Diastolic 77 Pulse Ox 99 12/11/23 04:28 12/11/23 04:28 12/11/23 04:28 Temperature Temperature Source Temporal Pulse Rate 70 Blood Pressure BP Systolic BP Diastolic Pulse Ox 99 12/11/23 04:28 12/11/23 04:28 12/11/23 06:44 Temperature 98.4 F Temperature Source Pulse Rate Blood Pressure 128/80 H BP Systolic 128 BP Diastolic 80 Pulse Ox 99 12/11/23 06:44 12/11/23 06:44 12/11/23 06:44 Temperature Temperature Source Temporal Pulse Rate 71 79 Blood Pressure BP Systolic BP Diastolic Pulse Ox 12/11/23 06:44 12/11/23 06:44 12/11/23 07:18 Temperature 98.7 F Temperature Source Pulse Rate Blood Pressure 119/83 H BP Systolic 119 BP Diastolic 83 Pulse Ox 98 12/11/23 07:18 12/11/23 07:18 12/11/23 07:18 Temperature Temperature Source Pulse Rate 65 75 Blood Pressure BP Systolic BP Diastolic Pulse Ox 100 12/11/23 07:19 12/11/23 07:19 12/11/23 07:19 Temperature Temperature Source Temporal Pulse Rate 67 Blood Pressure BP Systolic BP Diastolic Pulse Ox 100 12/11/23 07:19 12/11/23 07:33 12/11/23 07:33 Temperature 99.5 F H Temperature Source Pulse Rate 65 Blood Pressure 124/76 H BP Systolic 124 BP Diastolic 76 Pulse Ox 12/11/23 07:33 12/11/23 07:38 12/11/23 07:38 Temperature Temperature Source Pulse Rate 66 Blood Pressure 119/71 BP Systolic 119 BP Diastolic 71 Pulse Ox 100 12/11/23 07:38 12/11/23 07:43 12/11/23 07:43 Temperature Temperature Source Pulse Rate 69 Blood Pressure BP Systolic BP Diastolic Pulse Ox 100 100 12/11/23 07:46 12/11/23 07:46 12/11/23 07:49 Temperature Temperature Source Pulse Rate 63 Blood Pressure 103/59 L 100/52 L BP Systolic 103 100 BP Diastolic 59 52 Pulse Ox 12/11/23 07:49 12/11/23 07:48 12/11/23 07:54 Temperature Temperature Source Pulse Rate 73 Blood Pressure 114/68 BP Systolic 114 BP Diastolic 68 Pulse Ox 100 12/11/23 07:54 12/11/23 07:53 12/11/23 07:58 Temperature Temperature Source Pulse Rate 66 71 Blood Pressure BP Systolic BP Diastolic Pulse Ox 100 12/11/23 07:58 12/11/23 08:00 12/11/23 08:00 Temperature Temperature Source Pulse Rate 65 Blood Pressure 100/58 L BP Systolic 100 BP Diastolic 58 Pulse Ox 100 12/11/23 08:03 12/11/23 08:03 12/11/23 08:03 Temperature Temperature Source Pulse Rate 65 Blood Pressure 103/59 L BP Systolic 103 BP Diastolic 59 Pulse Ox 100 Weight Weight: 189 lb 9.561 oz Body Mass Index (BMI) 30.6 Physical Exam Const alert, oriented x3, no apparent distress and healthy appearing General Appearance: cooperative; Negative for anxious HEENT normocephalic Face and Sinus: normal facial exam Eyes EOMs intact bilaterally and no scleral icterus General Eye: normal appearance of both eyes Neck full ROM and supple Lymph Lymphatic: no lymphadenopathy noted Chest Chest: abnormal inspection of the chest Resp normal respiratory effort Effort and Inspection: able to speak in complete sentences Cardio regular rate GI soft to palpation and non-tender Inspection: gravid Palpation: soft; Negative for tender external exam normal Back/Spine no CVA tenderness Extremity normal to inspection, full ROM and no clubbing, cyanosis or edema General Extremity: Negative for calf tenderness or edema Skin Lesions: no lesions Rashes: no rashes Psych mental status grossly normal Labs Labs Labs: Blood Type A POSITIVE Antibody Screen NEGATIVE Hct 32.4 % (37-47) L Hgb 10.5 g/dL (12.0-15.0) L Obstetrics Ultrasound Syphilis Total Ab Non-reactive Rubella IgG Antibody Reactive (Nonreactive) Hep Bs Antigen Non-Reactive (Nonreactive) Hepatitis C Antibody Non-Reactive (Nonreactive) Chlamydia DNA (SULY) Negative (Negative) N.gonorrhoeae DNA (SULY) Negative (Negative) HIV 1&2 Antibody Non-Reactive (Nonreactive) Glucose 1 Hr 50 gm 94 mg/dL (70-140) Group B Strep DNA Negative (Negative) Miscellaneous Test Assessment & Plan (1) Vaginal discharge during : COMMENT: negative ROM 2/3-D/C home (2) Anemia affecting : COMMENT: hbg 10, added po iron. repeat at 30 weeks. (3) Circumvallate placenta: COMMENT: adequate growth 08/20. continue monthly growth scans (4) Borderline personality disorder: COMMENT: counseling encouraged (5) Anxiety during : (6) Depression affecting : COMMENT: zoloft/not taking, encouraged counseling:sched in 3 weeks. Stable. (7) Supervision of high risk , antepartum: COMMENT: [id number] MARK 12/07/23 by LMP KIM Galicia (8) : QUALIFIERS: Weeks of gestation: 39 weeks Qualified Code(s): Z3A.39 - 39 weeks gestation of COMMENT: gbs neg, AFP:negative. NIPT low risk, declined Carrier nl anatomy (9) Nausea and vomiting during : COMMENT: using zofran; significantly improved. (10) Positive self-administered antigen test for COVID-19: COMMENT: 81 mg asa possible 36 wk growth ultrasound PLAN: Plan Patient presents IOL, plan management for with pitocin/AROM next Pain management: plans epidural. GBS negative. Management of any complications: none I have reviewed the [facility] and made any clinically relevant updates.
[2023-12-11] MEDS: Oxytocin 10 UNITS/ML Vial IM (13:09)
[2023-12-11] MEDS: Oxytocin 15 Units/NS 250ml 15 UNITS/250 ML IV.SOLN 83 UNITS IV (13:13)
--- NOTE | 2023-12-11 13:21 | EX.PCM.OBRPT ---
Assessment & Plan (1) Anemia affecting : COMMENT: hbg 10, added po iron. repeat at 30 weeks. (2) Circumvallate placenta: COMMENT: adequate growth 08/20. continue monthly growth scans (3) Borderline personality disorder: COMMENT: counseling encouraged (4) Anxiety during : (5) Depression affecting : COMMENT: zoloft/not taking, encouraged counseling:sched in 3 weeks. Stable. (6) Supervision of high risk , antepartum: COMMENT: [id number] MARK 12/07/23 by LMP KIM Galicia (7) : QUALIFIERS: Weeks of gestation: 39 weeks Qualified Code(s): Z3A.39 - 39 weeks gestation of COMMENT: gbs neg, AFP:negative. NIPT low risk, declined Carrier nl anatomy (8) Nausea and vomiting during : COMMENT: using zofran; significantly improved. (9) Positive self-administered antigen test for COVID-19: COMMENT: 81 mg asa possible 36 wk growth ultrasound Maternal Data Information MARK Calculator Estimated Delivery Date Method Current WG Current Estimate 12/07/23 LMP (Certain) 40w 4d Other Estimates 12/11/23 Ultrasound #1 40w 0d Final MARK Source: LMP Gestational age: 40 weeks 4 days Vaginal Delivery Maternal Presentation Maternal Presentation: Elective Induction Type of Induction: Amniotomy and Cytotec Operative Information Date of Procedure: 12/11/23 Pre-Operative Diagnosis: 23 y/o @ 40 weeks 4 days, circumvallate placenta Post-Operative Diagnosis: 23 y/o @ 40 weeks 4 days, circumvallate placenta Surgery / Procedure Performed: Spontaneous Vaginal Delivery Type of Anesthesia: Epidural Drain: Perkins to straight drain Estimated Blood Loss: 400cc Time of Delivery: 13:06 Findings Description of Procedure: Patient began pushing and delivered the head in the FERNANDO presentation. The head was delivered atraumatically and a loose nuchal cord ?1 was identified and easily reduced over the infant's head. The anterior and posterior shoulders delivered without complication followed by the rest of the and the infant was placed on the maternal abdomen. Delayed cord clamping was employed for approximately 60 seconds. Cord was clamped and cut and gentle traction was applied to the cord and the placenta delivered spontaneously immediately following it was noted to be intact with three-vessel cord. The perineum and vagina were inspected and noted to have a first degree perineal laceration. This was repaired using a 3-0 vicryl rapie. EBL was 400cc. Patient and tolerated delivery well. Presentation: Vertex Amniotic Membrane Rupture Type: Artificial Time of Membrane Rupture: 0900 Amniotic Fluid Description: Clear Cord Vessel Description: 3 Vessels Cord Entanglement: Around neck x 1, loose Nuchal Cord Compression: Without compression A Gender: Female (1 minute): 8 (5 minute): 9 Delayed Cord Clamping: Yes Post Vaginal Delivery Medications Given After Delivery: IV Pitocin and IM Pitocin Episiotomy Description: None Laceration: 1st degree Complication Complications: None Multi Select Codes Urinary/Genital Urinary/Genital CPT Codes: 53846 Vaginal Delivery+ Care([facility])
[2023-12-11] MEDS: Ibuprofen 600 MG Tablet PO (15:16)
[2023-12-11] MEDS: Senna/Docusate Sodium 1 Tablet PO (17:38)
[2023-12-12 00:20] VITALS: BP 126/77; PULSE 78; RESP 16; TEMP 36.6
[2023-12-12] MEDS: Acetaminophen 500 MG Tablet 1000 MG PO ×2 (00:22→09:37)
[2023-12-12] MEDS: Ibuprofen 600 MG Tablet PO ×2 (04:23→14:05)
[2023-12-12 04:25] VITALS: BP 113/68; PULSE 74; RESP 16; TEMP 36.6
[2023-12-12 09:10] VITALS: BP 129/72; PULSE 85; RESP 16; TEMP 36.8; O2SAT 100
[2023-12-12] MEDS: Senna/Docusate Sodium 1 Tablet PO (09:37)
--- NOTE | 2023-12-12 09:56 | PN.OBGYN_ITS ---
Subjective Subjective Patient doing well without complaints. Tolerating PO. Ambulating and voiding without difficulty. Feeding well. Denies chest pain, shortness of breath, calf pain/swelling, fevers, chills, lightheadedness. Objective Data Objective Data Vital Signs: Vital Signs Temp Pulse Resp BP Pulse Ox O2 Del Method 98.2 F 85 16 129/72 H 100 Room Air 12/12/23 09:10 12/12/23 09:10 12/12/23 09:10 12/12/23 09:10 12/12/23 09:10 12/12/23 09:10 Oxygen Delivery Method Room Air Weight: 189 lb 9.561 oz Body Mass Index (BMI) 30.6 Intake & Output: Intake and Output for Last 24 Hours 12/10/23 12/11/23 12/12/23 23:59 23:59 23:59 Intake Total 87.5 / 87.5 1862.50 / 1862.50 Output Total 100 / 100 2128 / 2128 Balance -12.5 / -12.5 -265.50 / -265.50 Lab / Micro Data 12/10/23 20:10 ROS Constitutional Constitutional: Denies chills, fatigue, fever(s), poor appetite or weakness Eyes Eyes: Denies blurry vision, change in vision, seeing flashes or spots in vision ENT HEENT: Denies dizziness, headache(s), loss taste/smell or sore throat Cardiovascular Cardiovascular: Denies chest pain, dizziness, dyspnea, irregular heart rhythm, palpitations or rapid heart rate Respiratory/Chest Respiratory/Chest: Denies chest tightness, cough, dyspnea or breast pain Gastrointestinal Gastrointestinal: Denies abdominal pain, constipation or vomiting Genitourinary Genitourinary: Denies dysuria or flank pain Musculoskeletal Musculoskeletal: Denies difficulty walking, joint pain, limited range of motion or numbness Neurologic Neurologic: Denies abnormal movements, abnormal speech, dizziness, numbness, seizure-like activity or syncope Psychiatric Psychiatric: Denies anxiety, behavioral changes, change in appetite, confusion, depression or suicidal thoughts Physical Exam Const alert, oriented x3 and no apparent distress General Appearance: cooperative and comfortable Resp normal respiratory effort Cardio regular rate GI normal to inspection, nondistended, normoactive bowel sounds GI Narrative: uterus is firm below umbilicus Palpation: soft Back/Spine no CVA tenderness and thoraco-lumbar ROM normal Extremity normal to inspection, no clubbing, cyanosis or edema, no calf tenderness and no pedal edema Psych mental status grossly normal, thought process normal, cooperative, affect normal, speech normal, activity/motor behavior normal, denies homicidal ideation and denies suicidal ideation Assessment & Plan (1) Anemia affecting : COMMENT: hbg 10, added po iron. repeat at 30 weeks. (2) Circumvallate placenta: COMMENT: adequate growth 08/20. continue monthly growth scans (3) Borderline personality disorder: COMMENT: counseling encouraged (4) Anxiety during : (5) Depression affecting : COMMENT: zoloft/not taking, encouraged counseling:sched in 3 weeks. Mihaela colin (6) Positive self-administered antigen test for COVID-19: COMMENT: 81 mg asa possible 36 wk growth ultrasound PLAN: Plan s/p PPD # 1 1. routine post delivery care 2. bottle feeding- support given 3. rh positive 4. rubella immune 5. anemia- continue iron supplement 6. plan for dc to home later today
--- NOTE | 2023-12-12 09:57 | DCINST_ITS ---
Discharge Instructions Diet Discharge Diet: No restrictions Activity Discharge Activity: Return to Normal Activity, May Not Drive (while taking narcotic pain medications.) and May Shower May resume sexual activity in: 4-6 weeks Dressing / Incision Call your doctor if your incision/area has: Continuous Slow Oozing, Sudden Increased Bleeding, Increased Pain/ Swelling, Increased Redness and Foul Smelling Discharge Follow Up Care Please Follow Up With: Mansi Brar DO When: Call [phone] to make an appointment with your doctor in 6 weeks. If you had elevated blood pressure or 4th degree laceration, you will need to be seen in 2 weeks. Test Results: Test results from this visit will be discussed in further detail at your follow- up appointment, if applicable. Discharge Plan Admission Admit Date/Time: 12/10/23 18:50 Primary Reason for Your Visit: vaginal delivery Attending Provider: Mansi Brar Primary Care Provider: Tono Arciniega Discharge Orders/Prescriptions Prescriptions: No Action (w/o vit A)-Fe fum-FA 40 mg iron-1 mg tablet 1 tab PO DAILY Referrals / Follow Up: Tono Arciniega DO [Primary Care Provider] - Disposition Disposition (needs filled in before D/C Order can be placed): Home, Self Care
[2023-12-12 13:48] VITALS: BP 122/88; PULSE 77; RESP 16; TEMP 36.6; O2SAT 99
== END 2023-12-12 14:55 | disposition home or self-care (01) | DRG 807 ==
PROVIDERS: Admitting Provider Obstetrics & Gynecology; PCP Student in an Organized Health Care Education/Training Program; Referring Provider Obstetrics & Gynecology; Visit Provider Obstetrics & Gynecology
DX: O43.113 Circumvallate placenta, third trimester (principal); Z37.0 Single live birth; D64.9 Anemia, unspecified; O99.02 Anemia complicating childbirth; O48.0 Post-term pregnancy; Z3A.40 40 weeks gestation of pregnancy; O69.81X0 Labor and delivery complicated by cord around neck, without compression, not applicable or unspecified; O70.0 First degree perineal laceration during delivery
CPT/HCPCS: 59025; 59050; 85025; 86780; 86850; 86900; 86901; 99221; J7120; A4216; G0378